=== PATIENT | female | born 1975 ===

== ENCOUNTER → 2020-02-06 14:40 | Outpatient (BNVA) | payer OTHER, SELFPAY | PROVIDERS: PCP Internal Medicine; Referring Provider Internal Medicine; Visit Provider Student in an Organized Health Care Education/Training Program | DX: M06.00 Rheumatoid arthritis without rheumatoid factor, unspecified site (principal); M54.9 Dorsalgia, unspecified; Z79.899 Other long term (current) drug therapy | CPT/HCPCS: 99212 ==

== ENCOUNTER 2020-06-11 13:44 | Outpatient (REF) | payer OTHER, SELFPAY ==
--- NOTE | ~2020-06-11 | XR_ITS ---
EXAMINATION: XR KNEE, LEFT CLINICAL INFORMATION: Rheumatoid arthritis without rheumatoid factor COMPARISON: Radiographs left knee 12/07/2017 TECHNIQUE: 3 views of the left knee are obtained including AP view with weightbearing. FINDINGS: There is no fracture, dislocation, destructive process, or suprapatellar effusion. Bony mineralization is normal. No periostitis. Hoffa's fat pad appears normal. There is no focal joint narrowing or erosive change or chondrocalcinosis. XR/XR knee LT 3V IMPRESSION: Unremarkable left knee.
--- NOTE | ~2020-06-11 | XR_ITS ---
EXAMINATION: XR HIP, LEFT CLINICAL INFORMATION: Rheumatoid arthritis without rheumatoid factor. COMPARISON: Radiographs left hip 07/14/2010 TECHNIQUE: Two views of the left hip. FINDINGS: There is normal bony mineralization. No joint narrowing or erosive change or chondrocalcinosis. Soft tissue planes appear normal. There is no fracture, dislocation, or destructive process. Visualized left SI joint and the pubis are unremarkable. Small bone island in the ischial tuberosity is stable from prior radiographs 2010. XR/XR hip LT min 2V IMPRESSION: Normal left hip.
[2020-06-11 14:40] LABS: MANUAL DIFF FLAG NO
[2020-06-11 14:46] LABS: Basophils Percent Auto 0.3 % (0-2); Eosinophils Absolute Auto 0.1 X10*3/uL (0.0-0.4); Eosinophils Percent Auto 1.5 % (0-4); Hematocrit 38.2 % (37-47); Hemoglobin 12.1 g/dl (12.0-16.0); Imm Gran Abs Auto 0.05 X10*3/uL (0.00-0.03); Imm Gran Pct Auto 0.8 % (0.0-0.4); Lymphocytes Absolute Auto 1.3 X10*3/uL (1.2-4.9); Lymphocytes Percent Auto 20.5 % (20-40); Mean Corpuscular HGB Conc 31.7 g/dl (31.0-35.0); Mean Corpuscular Hemoglobin 30.6 pg (27.0-33.0); Mean Corpuscular Volume 96.5 fL (80-98); Mean Platelet Volume 9.8 fL (9.4-12.3); Monocytes Absolute Auto 0.5 X10*3/uL (0.1-1.2); Monocytes Percent Auto 7.3 % (2-11); Neutrophils Absolute Auto 4.6 X10*3/uL (2.0-8.3); Neutrophils Percent Auto 69.6 % (45-73); Platelet Count 335 X10*3/uL (160-400); Red Blood Count 3.96 X10*6/uL (4.20-5.50); Red Cell Distribution Width 15.6 % (11.0-16.0); White Blood Count 6.5 X10*3/uL (4.8-10.8)
[2020-06-11 15:09] LABS: Alanine Aminotransferase 12 U/L (0-31); Albumin Level 4.3 g/dL (3.5-5.0); Alkaline Phosphatase 80 U/L (39-117); Anion Gap 14 (12-20); Aspartate Amino Transferase 17 U/L (5-31); Bilirubin Total 0.4 mg/dL (0.0-1.0); Blood Urea Nitrogen 10 mg/dL (9-16); C Reactive Protein 1.92 mg/dL (< or = 0.50); Calcium 9.8 mg/dL (8.4-10.2); Carbon Dioxide 28 mmol/L (22-29); Chloride 104 mmol/L (96-108); Estimated Glomerular Filt Rate > 60; Glucose Random 96 mg/dL (60-115); Potassium 4.8 mmol/L (3.3-5.1); Sodium 141 mmol/L (135-145); Total Protein 7.7 g/dL (6.5-8.0)
[2020-06-11 15:42] LABS: Erythrocyte Sedimentation Rate 29 MM/HR (0-20)
[2020-06-12 04:51] LABS: HBc Num1 0.04 S/CO (0.00-0.79); Hepatitis A Antibody IgM 0.13 Index (0-0.79); Hepatitis B Core Antibody Nonreactive (Nonreactive); ~HepC Num1 0.07 S/CO (0.00-0.79); ~Hepatitis A Antibody IgM Nonreactive (Nonreactive); ~Hepatitis B Surface Antibody REACTIVE (Nonreactive); ~Hepatitis C Antibody Nonreactive (Nonreactive)
[2020-06-12 05:02] LABS: HBsAGNum1 0.18 S/CO (0.00-0.99); Hepatitis B Surface Antigen Negative (Negative)
[2020-06-13 19:16] LABS: TS Negative Control Passed; TS Panel A 0; TS Panel B 0; TS Positive Control Passed; TSpotTB Negative (SeeBelow)
== END 2020-06-11 13:45 | disposition home or self-care (01) ==
LOC: HO.LAB 13:44
PROVIDERS: PCP Internal Medicine; Visit Provider Student in an Organized Health Care Education/Training Program
DX: M06.00 Rheumatoid arthritis without rheumatoid factor, unspecified site (principal); Z79.899 Other long term (current) drug therapy
CPT/HCPCS: 36415; 73502; 73562; 80053; 85025; 85652; 86140; 86481; 86704; 86706; 86709; 86803; 87340; 99212

== ENCOUNTER 2020-09-16 15:36 | Outpatient (REF) | payer OTHER, SELFPAY ==
[2020-09-16 16:29] LABS: MANUAL DIFF FLAG NO
[2020-09-16 16:34] LABS: Basophils Percent Auto 0.3 % (0-2); Eosinophils Absolute Auto 0.1 X10*3/uL (0.0-0.4); Eosinophils Percent Auto 0.9 % (0-4); Hematocrit 36.3 % (37-47); Hemoglobin 11.6 g/dl (12.0-16.0); Imm Gran Abs Auto 0.05 X10*3/uL (0.00-0.03); Imm Gran Pct Auto 0.8 % (0.0-0.4); Lymphocytes Absolute Auto 1.5 X10*3/uL (1.2-4.9); Mean Corpuscular Hemoglobin 30.1 pg (27.0-33.0); Mean Corpuscular Volume 94.3 fL (80-98); Monocytes Absolute Auto 0.4 X10*3/uL (0.1-1.2); Monocytes Percent Auto 5.8 % (2-11); Neutrophils Absolute Auto 4.6 X10*3/uL (2.0-8.3); Neutrophils Percent Auto 70.2 % (45-73); Platelet Count 261 X10*3/uL (160-400); Red Blood Count 3.85 X10*6/uL (4.20-5.50); Red Cell Distribution Width 14.7 % (11.0-16.0); White Blood Count 6.6 X10*3/uL (4.8-10.8)
[2020-09-16 16:56] LABS: Alanine Aminotransferase 8 U/L (0-31); Albumin Level 4.2 g/dL (3.5-5.0); Alkaline Phosphatase 71 U/L (39-117); Anion Gap 10 (12-20); Aspartate Amino Transferase 12 U/L (5-31); Bilirubin Total 0.2 mg/dL (0.0-1.0); Blood Urea Nitrogen 9 mg/dL (9-16); C Reactive Protein 0.65 mg/dL (< or = 0.50); Calcium 9.8 mg/dL (8.4-10.2); Carbon Dioxide 27 mmol/L (22-29); Chloride 107 mmol/L (96-108); Estimated Glomerular Filt Rate > 60; Glucose Random 123 mg/dL (60-115); Potassium 4.1 mmol/L (3.3-5.1); Sodium 140 mmol/L (135-145); Total Protein 7.2 g/dL (6.5-8.0)
[2020-09-16 17:33] LABS: Erythrocyte Sedimentation Rate 21 MM/HR (0-20)
== END 2020-09-16 15:37 | disposition home or self-care (01) ==
LOC: HO.LAB 15:36
PROVIDERS: Visit Provider Student in an Organized Health Care Education/Training Program
DX: M06.00 Rheumatoid arthritis without rheumatoid factor, unspecified site (principal)
CPT/HCPCS: 36415; 80053; 85025; 85652; 86140; 99212

== ENCOUNTER → 2020-10-06 11:28 | Outpatient (BNVA) | payer OTHER, SELFPAY | PROVIDERS: PCP Physician Assistant; Visit Provider Student in an Organized Health Care Education/Training Program ==

== ENCOUNTER → 2020-11-10 10:02 | Outpatient (BNVA) | payer OTHER, SELFPAY | PROVIDERS: PCP Internal Medicine; Visit Provider Nurse Practitioner Family | DX: M06.00 Rheumatoid arthritis without rheumatoid factor, unspecified site (principal); Z79.899 Other long term (current) drug therapy | CPT/HCPCS: 99212 ==

== ENCOUNTER 2020-12-22 12:14 | Outpatient (REF) | payer OTHER, SELFPAY ==
[2020-12-22 12:40] LABS: MANUAL DIFF FLAG NO
[2020-12-22 12:57] LABS: Basophils Percent Auto 0.6 % (0-2); Eosinophils Absolute Auto 0.1 X10*3/uL (0.0-0.4); Eosinophils Percent Auto 1.5 % (0-4); Hematocrit 37.8 % (37-47); Hemoglobin 11.9 g/dl (12.0-16.0); Imm Gran Abs Auto 0.02 X10*3/uL (0.00-0.03); Imm Gran Pct Auto 0.4 % (0.0-0.4); Lymphocytes Absolute Auto 1.6 X10*3/uL (1.2-4.9); Lymphocytes Percent Auto 30.4 % (20-40); Mean Corpuscular HGB Conc 31.5 g/dl (31.0-35.0); Mean Corpuscular Hemoglobin 29.6 pg (27.0-33.0); Monocytes Absolute Auto 0.3 X10*3/uL (0.1-1.2); Monocytes Percent Auto 6.3 % (2-11); Neutrophils Absolute Auto 3.2 X10*3/uL (2.0-8.3); Neutrophils Percent Auto 60.8 % (45-73); Platelet Count 300 X10*3/uL (160-400); Red Blood Count 4.02 X10*6/uL (4.20-5.50); Red Cell Distribution Width 15.1 % (11.0-16.0); White Blood Count 5.2 X10*3/uL (4.8-10.8)
[2020-12-22 13:23] LABS: Alanine Aminotransferase 10 U/L (0-31); Albumin Level 4.5 g/dL (3.5-5.0); Alkaline Phosphatase 68 U/L (39-117); Anion Gap 10 (12-20); Aspartate Amino Transferase 15 U/L (5-31); Bilirubin Total 0.3 mg/dL (0.0-1.0); Blood Urea Nitrogen 8 mg/dL (9-16); C Reactive Protein 0.74 mg/dL (< or = 0.50); Calcium 9.9 mg/dL (8.4-10.2); Carbon Dioxide 29 mmol/L (22-29); Chloride 106 mmol/L (96-108); Estimated Glomerular Filt Rate > 60; Glucose Random 95 mg/dL (60-115); Potassium 4.5 mmol/L (3.3-5.1); Sodium 140 mmol/L (135-145); Total Protein 7.7 g/dL (6.5-8.0)
[2020-12-22 13:40] LABS: Erythrocyte Sedimentation Rate 20 MM/HR (0-20)
== END 2020-12-22 12:15 | disposition home or self-care (01) ==
LOC: HO.LAB 12:14
PROVIDERS: PCP Physician Assistant; Visit Provider Nurse Practitioner Family
DX: M06.00 Rheumatoid arthritis without rheumatoid factor, unspecified site (principal)
CPT/HCPCS: 36415; 80053; 85025; 85652; 86140

== ENCOUNTER → 2021-02-08 08:49 | Outpatient (BNVA) | payer OTHER, SELFPAY | PROVIDERS: PCP Physician Assistant; Visit Provider Nurse Practitioner Family | DX: M06.00 Rheumatoid arthritis without rheumatoid factor, unspecified site (principal); M25.562 Pain in left knee | CPT/HCPCS: 99212 ==

== ENCOUNTER 2021-04-20 10:46 | Outpatient (REF) | payer OTHER, SELFPAY ==
[2021-04-20 12:00] LABS: MANUAL DIFF FLAG NO
[2021-04-20 12:10] LABS: Basophils Percent Auto 0.3 % (0-2); Eosinophils Absolute Auto 0.1 X10*3/uL (0.0-0.4); Eosinophils Percent Auto 2.2 % (0-4); Hematocrit 39.5 % (37.0-47.0); Hemoglobin 12.6 g/dl (12.0-16.0); Imm Gran Abs Auto 0.03 X10*3/uL (0.00-0.03); Imm Gran Pct Auto 0.5 % (0.0-0.4); Lymphocytes Absolute Auto 1.6 X10*3/uL (1.2-4.9); Mean Corpuscular HGB Conc 31.9 g/dl (31.0-35.0); Mean Platelet Volume 10.3 fL (9.4-12.3); Monocytes Absolute Auto 0.4 X10*3/uL (0.1-1.2); Monocytes Percent Auto 6.9 % (2-11); Neutrophils Percent Auto 64.1 % (45-73); Platelet Count 273 X10*3/uL (160-400); Red Cell Distribution Width 15.7 % (11.0-16.0); White Blood Count 6.3 X10*3/uL (4.8-10.8)
[2021-04-20 12:47] LABS: Erythrocyte Sedimentation Rate 18 MM/HR (0-20)
[2021-04-20 13:22] LABS: Alanine Aminotransferase 10 U/L (0-31); Albumin Level 4.1 g/dL (3.5-5.0); Alkaline Phosphatase 68 U/L (39-117); Anion Gap 10 (12-20); Aspartate Amino Transferase 14 U/L (5-31); Bilirubin Total 0.2 mg/dL (0.0-1.0); Blood Urea Nitrogen 10 mg/dL (9-16); C Reactive Protein 0.93 mg/dL (< or = 0.50); Calcium 10.1 mg/dL (8.4-10.2); Carbon Dioxide 28 mmol/L (22-29); Chloride 108 mmol/L (96-108); Estimated Glomerular Filt Rate > 60; Glucose Random 109 mg/dL (60-115); Potassium 3.9 mmol/L (3.3-5.1); Sodium 142 mmol/L (135-145); Total Protein 7.3 g/dL (6.5-8.0)
== END 2021-04-20 10:47 | disposition home or self-care (01) ==
LOC: HO.LAB 10:46
PROVIDERS: Student in an Organized Health Care Education/Training Program; PCP Physician Assistant; Visit Provider Nurse Practitioner Family
DX: M06.00 Rheumatoid arthritis without rheumatoid factor, unspecified site (principal); M25.562 Pain in left knee
CPT/HCPCS: 36415; 80053; 85025; 85652; 86140; 99212

== ENCOUNTER 2021-06-18 11:36 | Outpatient (REF) | payer OTHER, SELFPAY ==
[2021-06-18 12:35] LABS: MANUAL DIFF FLAG NO
[2021-06-18 13:02] LABS: Basophils Percent Auto 0.3 % (0-2); Eosinophils Percent Auto 0.3 % (0-4); Hematocrit 40.4 % (37.0-47.0); Hemoglobin 12.9 g/dl (12.0-16.0); Imm Gran Abs Auto 0.02 X10*3/uL (0.00-0.03); Imm Gran Pct Auto 0.3 % (0.0-0.4); Lymphocytes Absolute Auto 1.6 X10*3/uL (1.2-4.9); Lymphocytes Percent Auto 23.6 % (20-40); Mean Corpuscular HGB Conc 31.9 g/dl (31.0-35.0); Mean Corpuscular Hemoglobin 30.1 pg (27.0-33.0); Mean Corpuscular Volume 94.4 fL (80.0-98.0); Mean Platelet Volume 10.3 fL (9.4-12.3); Monocytes Absolute Auto 0.5 X10*3/uL (0.1-1.2); Monocytes Percent Auto 7.5 % (2-11); Neutrophils Absolute Auto 4.7 x10*3/uL (2.0-8.3); Platelet Count 263 X10*3/uL (160-400); Red Blood Count 4.28 X10*6/uL (4.20-5.50); Red Cell Distribution Width 14.3 % (11.0-16.0)
[2021-06-18 13:44] LABS: Alanine Aminotransferase 10 U/L (0-31); Albumin Level 4.2 g/dL (3.5-5.0); Alkaline Phosphatase 67 U/L (39-117); Anion Gap 11 (12-20); Aspartate Amino Transferase 13 U/L (5-31); Bilirubin Total 0.4 mg/dL (0.0-1.0); Blood Urea Nitrogen 10 mg/dL (9-16); Calcium 10.5 mg/dL (8.4-10.2); Carbon Dioxide 27 mmol/L (22-29); Chloride 105 mmol/L (96-108); Estimated Glomerular Filt Rate > 60; Glucose Random 96 mg/dL (60-115); Potassium 4.2 mmol/L (3.3-5.1); Sodium 139 mmol/L (135-145); Total Protein 7.5 g/dL (6.5-8.0)
[2021-06-18 13:48] LABS: Erythrocyte Sedimentation Rate 20 MM/HR (0-20)
[2021-06-21 12:41] LABS: PTHI 43 pg/mL (16-77)
== END 2021-06-18 11:37 | disposition home or self-care (01) ==
LOC: HO.LAB 11:36
PROVIDERS: PCP Physician Assistant; Visit Provider Nurse Practitioner Family
DX: M06.00 Rheumatoid arthritis without rheumatoid factor, unspecified site (principal); G89.29 Other chronic pain; M25.562 Pain in left knee
CPT/HCPCS: 36415; 80053; 83970; 85025; 85652; 86140; 99212

== ENCOUNTER 2021-07-01 12:34 | Outpatient (REF) | payer OTHER, SELFPAY ==
[2021-07-01 13:02] LABS: MANUAL DIFF FLAG NO
[2021-07-01 13:24] LABS: Basophils Percent Auto 0.3 % (0-2); Eosinophils Absolute Auto 0.1 X10*3/uL (0.0-0.4); Eosinophils Percent Auto 1.4 % (0-4); Hematocrit 38.9 % (37.0-47.0); Hemoglobin 12.6 g/dl (12.0-16.0); Imm Gran Abs Auto 0.02 X10*3/uL (0.00-0.03); Imm Gran Pct Auto 0.3 % (0.0-0.4); Lymphocytes Absolute Auto 1.7 X10*3/uL (1.2-4.9); Lymphocytes Percent Auto 25.9 % (20-40); Mean Corpuscular HGB Conc 32.4 g/dl (31.0-35.0); Mean Corpuscular Hemoglobin 29.8 pg (27.0-33.0); Mean Platelet Volume 10.1 fL (9.4-12.3); Monocytes Absolute Auto 0.4 X10*3/uL (0.1-1.2); Neutrophils Absolute Auto 4.3 x10*3/uL (2.0-8.3); Neutrophils Percent Auto 66.1 % (45-73); Platelet Count 282 X10*3/uL (160-400); Red Blood Count 4.23 X10*6/uL (4.20-5.50); Red Cell Distribution Width 13.6 % (11.0-16.0); White Blood Count 6.5 X10*3/uL (4.8-10.8)
[2021-07-01 13:48] LABS: Alanine Aminotransferase 9 U/L (0-31); Albumin Level 3.9 g/dL (3.5-5.0); Alkaline Phosphatase 70 U/L (39-117); Anion Gap 11 (12-20); Aspartate Amino Transferase 14 U/L (5-31); Bilirubin Total 0.2 mg/dL (0.0-1.0); Blood Urea Nitrogen 10 mg/dL (9-16); C Reactive Protein 1.07 mg/dL (< or = 0.50); Calcium 9.8 mg/dL (8.4-10.2); Carbon Dioxide 23 mmol/L (22-29); Chloride 108 mmol/L (96-108); Estimated Glomerular Filt Rate > 60; Glucose Random 85 mg/dL (60-115); Potassium 4.4 mmol/L (3.3-5.1); Sodium 138 mmol/L (135-145); Total Protein 7.3 g/dL (6.5-8.0)
[2021-07-01 14:01] LABS: Erythrocyte Sedimentation Rate 28 MM/HR (0-20)
[2021-07-02 14:37] LABS: Calcium (PTHI) 9.8 mg/dL (8.6-10.2); PTHI 48 pg/mL (16-77)
== END 2021-07-01 12:35 | disposition home or self-care (01) ==
LOC: HO.LAB 12:34
PROVIDERS: Visit Provider Nurse Practitioner Family
DX: M06.00 Rheumatoid arthritis without rheumatoid factor, unspecified site (principal); E83.52 Hypercalcemia; Z79.899 Other long term (current) drug therapy
CPT/HCPCS: 36415; 80053; 83970; 85025; 85652; 86140

== ENCOUNTER 2021-08-31 14:03 | Outpatient (REF) | payer OTHER, SELFPAY ==
[2021-08-31 14:19] LABS: MANUAL DIFF FLAG NO
[2021-08-31 14:57] LABS: Basophils Percent Auto 0.3 % (0-2); Eosinophils Percent Auto 0.6 % (0-4); Hematocrit 42.2 % (37.0-47.0); Hemoglobin 13.3 g/dl (12.0-16.0); Imm Gran Abs Auto 0.02 X10*3/uL (0.00-0.03); Imm Gran Pct Auto 0.3 % (0.0-0.4); Lymphocytes Absolute Auto 1.5 X10*3/uL (1.2-4.9); Lymphocytes Percent Auto 20.4 % (20-40); Mean Corpuscular HGB Conc 31.5 g/dl (31.0-35.0); Mean Corpuscular Hemoglobin 29.8 pg (27.0-33.0); Mean Corpuscular Volume 94.6 fL (80.0-98.0); Mean Platelet Volume 10.2 fL (9.4-12.3); Monocytes Absolute Auto 0.4 X10*3/uL (0.1-1.2); Monocytes Percent Auto 5.9 % (2-11); Neutrophils Absolute Auto 5.3 x10*3/uL (2.0-8.3); Neutrophils Percent Auto 72.5 % (45-73); Platelet Count 286 X10*3/uL (160-400); Red Blood Count 4.46 X10*6/uL (4.20-5.50); Red Cell Distribution Width 14.8 % (11.0-16.0); White Blood Count 7.3 X10*3/uL (4.8-10.8)
[2021-08-31 15:22] LABS: Alanine Aminotransferase 13 U/L (0-31); Albumin Level 4.4 g/dL (3.5-5.0); Alkaline Phosphatase 81 U/L (39-117); Anion Gap 11 (12-20); Aspartate Amino Transferase 15 U/L (5-31); Bilirubin Total 0.3 mg/dL (0.0-1.0); Blood Urea Nitrogen 10 mg/dL (9-16); C Reactive Protein 1.08 mg/dL (< or = 0.50); Carbon Dioxide 28 mmol/L (22-29); Chloride 103 mmol/L (96-108); Estimated Glomerular Filt Rate > 60; Glucose Random 88 mg/dL (60-115); Sodium 138 mmol/L (135-145); Total Protein 7.8 g/dL (6.5-8.0)
[2021-08-31 15:47] LABS: Erythrocyte Sedimentation Rate 20 MM/HR (0-20)
== END 2021-08-31 14:04 | disposition home or self-care (01) ==
LOC: HO.LAB 14:03
PROVIDERS: PCP Physician Assistant; Visit Provider Nurse Practitioner Family
DX: M06.00 Rheumatoid arthritis without rheumatoid factor, unspecified site (principal)
CPT/HCPCS: 36415; 80053; 85025; 85652; 86140

== ENCOUNTER 2021-09-22 12:34 | Outpatient (REF) | payer OTHER, SELFPAY ==
--- NOTE | ~2021-09-22 | XR_ITS ---
EXAMINATION: XR KNEE, LEFT CLINICAL INFORMATION: Pain left knee. COMPARISON: None TECHNIQUE: Four views of the left knee. FINDINGS: There is minimal loss of medial compartment joint space. No loose bodies, acute fracture, joint effusion or bony erosive changes. XR/XR knee LT 3V IMPRESSION: Minimal loss of medial compartment joint space, question early degenerative changes. No acute fracture, loose bodies or joint effusion seen.
== END 2021-09-22 12:35 | disposition home or self-care (01) ==
LOC: HO.XRAY 12:34
PROVIDERS: Visit Provider Nurse Practitioner Family
DX: M25.562 Pain in left knee (principal); M06.00 Rheumatoid arthritis without rheumatoid factor, unspecified site; Z79.899 Other long term (current) drug therapy
CPT/HCPCS: 73562; 99212

== ENCOUNTER 2021-12-23 13:31 | Outpatient (REF) | payer OTHER, SELFPAY ==
[2021-12-23 13:53] LABS: MANUAL DIFF FLAG NO
[2021-12-23 14:37] LABS: Basophils Percent Auto 0.3 % (0-2); Eosinophils Percent Auto 0.7 % (0-4); Hematocrit 40.6 % (37.0-47.0); Hemoglobin 13.2 g/dl (12.0-16.0); Imm Gran Abs Auto 0.03 X10*3/uL (0.00-0.03); Imm Gran Pct Auto 0.5 % (0.0-0.4); Lymphocytes Absolute Auto 1.5 X10*3/uL (1.2-4.9); Lymphocytes Percent Auto 24.5 % (20-40); Mean Corpuscular HGB Conc 32.5 g/dl (31.0-35.0); Mean Corpuscular Hemoglobin 30.6 pg (27.0-33.0); Mean Corpuscular Volume 94.2 fL (80.0-98.0); Mean Platelet Volume 11.8 fL (9.4-12.3); Monocytes Absolute Auto 0.4 X10*3/uL (0.1-1.2); Monocytes Percent Auto 7.1 % (2-11); Neutrophils Percent Auto 66.9 % (45-73); Platelet Count 178 X10*3/uL (160-400); Red Blood Count 4.31 X10*6/uL (4.20-5.50); Red Cell Distribution Width 14.6 % (11.0-16.0)
[2021-12-23 15:01] LABS: Alanine Aminotransferase 9 U/L (0-31); Aspartate Amino Transferase 15 U/L (5-31); C Reactive Protein 1.41 mg/dL (< or = 0.50); Estimated Glomerular Filt Rate > 60
[2021-12-23 15:21] LABS: Erythrocyte Sedimentation Rate 27 MM/HR (0-20)
== END 2021-12-23 13:32 | disposition home or self-care (01) ==
LOC: HO.LAB 13:31
PROVIDERS: PCP Physician Assistant; Visit Provider Nurse Practitioner Family
DX: M06.00 Rheumatoid arthritis without rheumatoid factor, unspecified site (principal); Z79.899 Other long term (current) drug therapy
CPT/HCPCS: 36415; 82565; 84450; 84460; 85025; 85652; 86140

== ENCOUNTER 2022-01-04 14:18 | Outpatient (REF) | payer OTHER, SELFPAY ==
--- NOTE | ~2022-01-04 | XR_ITS ---
EXAMINATION: XR CERVICAL SPINE CLINICAL INFORMATION: Pain. COMPARISON: Previous x-ray 10/2019. TECHNIQUE: 3 views of the cervical spine were obtained. FINDINGS: Bone alignment is normal. No acute fracture or dislocation. Degenerative spondylosis at C6-C7. Normal disc spaces. Normal prevertebral soft tissues. XR/XR cervical spine 2V IMPRESSION: Degenerative spondylosis at C6-C7.
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
== END 2022-01-04 14:19 | disposition home or self-care (01) ==
LOC: HO.XRAY 14:18
PROVIDERS: PCP Physician Assistant; Visit Provider Nurse Practitioner Family
DX: M54.2 Cervicalgia (principal); M54.50 Low back pain, unspecified; M54.6 Pain in thoracic spine; M06.00 Rheumatoid arthritis without rheumatoid factor, unspecified site; M79.7 Fibromyalgia; M25.562 Pain in left knee
CPT/HCPCS: 72040; 72072; 72100; 99212

== ENCOUNTER → 2022-02-03 14:58 | Outpatient (BNVA) | payer OTHER, SELFPAY | PROVIDERS: PCP Physician Assistant; Visit Provider Psychiatry & Neurology Neurology | DX: M79.7 Fibromyalgia (principal); M06.00 Rheumatoid arthritis without rheumatoid factor, unspecified site; R29.898 Other symptoms and signs involving the musculoskeletal system; R06.83 Snoring; G47.9 Sleep disorder, unspecified; G47.10 Hypersomnia, unspecified | CPT/HCPCS: 99202 ==

== ENCOUNTER 2022-05-16 15:12 | Outpatient (REF) | payer OTHER, SELFPAY ==
[2022-05-16 15:26] LABS: MANUAL DIFF FLAG NO
[2022-05-16 16:03] LABS: Basophils Percent Auto 0.5 % (0-2); Eosinophils Absolute Auto 0.2 X10*3/uL (0.0-0.4); Eosinophils Percent Auto 2.3 % (0-4); Hematocrit 41.3 % (37.0-47.0); Hemoglobin 13.3 g/dl (12.0-16.0); Imm Gran Abs Auto 0.03 X10*3/uL (0.00-0.03); Imm Gran Pct Auto 0.5 % (0.0-0.4); Lymphocytes Absolute Auto 1.9 X10*3/uL (1.2-4.9); Lymphocytes Percent Auto 29.3 % (20-40); Mean Corpuscular HGB Conc 32.2 g/dl (31.0-35.0); Mean Corpuscular Hemoglobin 30.1 pg (27.0-33.0); Mean Corpuscular Volume 93.4 fL (80.0-98.0); Monocytes Absolute Auto 0.4 X10*3/uL (0.1-1.2); Monocytes Percent Auto 5.7 % (2-11); Neutrophils Absolute Auto 4.1 x10*3/uL (2.0-8.3); Neutrophils Percent Auto 61.7 % (45-73); Platelet Count 285 X10*3/uL (160-400); Red Blood Count 4.42 X10*6/uL (4.20-5.50); Red Cell Distribution Width 14.2 % (11.0-16.0); White Blood Count 6.6 X10*3/uL (4.8-10.8)
[2022-05-16 16:29] LABS: Alanine Aminotransferase 12 U/L (0-31); Albumin Level 4.4 g/dL (3.5-5.0); Alkaline Phosphatase 76 U/L (39-117); Anion Gap 10 (12-20); Aspartate Amino Transferase 16 U/L (5-31); Bilirubin Total 0.4 mg/dL (0.0-1.0); Blood Urea Nitrogen 8 mg/dL (9-16); C Reactive Protein 1.51 mg/dL (< or = 0.50); Carbon Dioxide 28 mmol/L (22-29); Chloride 106 mmol/L (96-108); Estimated Glomerular Filt Rate > 60; Glucose Random 83 mg/dL (60-115); Potassium 4.6 mmol/L (3.3-5.1); Sodium 139 mmol/L (135-145); Total Protein 7.9 g/dL (6.5-8.0)
[2022-05-16 16:50] LABS: Erythrocyte Sedimentation Rate 51 MM/HR (0-20)
== END 2022-05-16 15:13 | disposition home or self-care (01) ==
LOC: HO.LAB 15:12
PROVIDERS: PCP Physician Assistant; Visit Provider Nurse Practitioner Family
DX: M06.00 Rheumatoid arthritis without rheumatoid factor, unspecified site (principal)
CPT/HCPCS: 36415; 80053; 85025; 85652; 86140

== ENCOUNTER → 2022-05-18 14:41 | Outpatient (BNVA) | payer OTHER, SELFPAY | PROVIDERS: PCP Physician Assistant; Visit Provider Nurse Practitioner Family | DX: M06.00 Rheumatoid arthritis without rheumatoid factor, unspecified site (principal); M25.562 Pain in left knee; M47.816 Spondylosis without myelopathy or radiculopathy, lumbar region; M47.812 Spondylosis without myelopathy or radiculopathy, cervical region; M47.814 Spondylosis without myelopathy or radiculopathy, thoracic region | CPT/HCPCS: 99212 ==

== ENCOUNTER 2022-06-21 13:22 | Outpatient (REF) | payer MEDICAID, SELFPAY ==
[2022-06-21 14:28] LABS: C Reactive Protein 0.52 mg/dL (< or = 0.50)
[2022-06-21 14:59] LABS: Erythrocyte Sedimentation Rate 23 MM/HR (0-20)
== END 2022-06-21 13:23 | disposition home or self-care (01) ==
LOC: HO.LAB 13:22
PROVIDERS: Visit Provider Nurse Practitioner Family
DX: M06.00 Rheumatoid arthritis without rheumatoid factor, unspecified site (principal)
CPT/HCPCS: 36415; 85652; 86140

== ENCOUNTER → 2022-08-17 13:18 | Outpatient (BNVA) | payer MEDICAID, SELFPAY | PROVIDERS: PCP Physician Assistant; Visit Provider Nurse Practitioner Family | DX: M06.00 Rheumatoid arthritis without rheumatoid factor, unspecified site (principal); M25.562 Pain in left knee; Z79.899 Other long term (current) drug therapy | CPT/HCPCS: 99212 ==

== ENCOUNTER 2022-11-07 13:04 | Outpatient (AMB) | payer MEDICAID, SELFPAY ==
[2022-11-07 13:05] VITALS: BP 116/72; PULSE 72; TEMP 35.9; O2SAT 96; BMI 29.0
--- NOTE | 2022-11-07 13:05 | MHC.OFFVIS ---
Intake Vital Signs 11/07/22 13:05 Height 5 ft 2 in Weight 158 lb 11.725 oz BMI 29.0 BP 116/72 Blood Pressure Location Lt brachial Position Sitting Pulse 72 Pulse Source Pulse Oximeter Temp 96.6 F L Temp Source Skin Pulse Oximetry (%) 96 Intake Visit Reasons: rheumatoid arthritis Intake Note: Pt seen today for RA follow up. 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: No Accompanied by: Self / Same As Patient Allergies tramadol [Ultram] Allergy (Unknown, Verified 11/07/22 13:07) nausea and vomiting adalimumab [From Humira(CF)] Allergy (Verified 11/07/22 13:07) injection site reaction etanercept [From Enbrel] Allergy (Verified 11/07/22 13:07) Rash CT scan dye Allergy (Intermediate, Uncoded 11/07/22 13:07) trouble breathing From ULTRAM Allergy (Intermediate, Uncoded 11/07/22 13:07) N/V/DIZZINESS Medication List - Last Reconciled 11/07/22 by Clayton Aj MD abatacept (Orencia ClickJect) 125 mg subcut QWEEK albuterol sulfate 90 mcg/actuation 2 puffs inhalation Q6H PRN ascorbate calcium (vitamin C) 500 mg PO DAILY baclofen 10 mg PO BID gydgohhgqm-eqbtakibpzbql-yuvc 50-325-40 mg 1 tab PO Q8H PRN citalopram 20 mg PO DAILY cyanocobalamin (vitamin B-12) 250 mcg PO DAILY dicyclomine 10 mg PO QID fluticasone propionate 50 mcg/actuation 1 spray intranasal BID fluticasone propionate 44 mcg/actuation (Flovent HFA) 1 puff inhalation BID L.acidoph-B.animalis-B.longum 15 billion cell 1 cap PO DAILY loratadine 10 mg PO DAILY PRN lorazepam 1 mg PO BID PRN pantoprazole 40 mg PO DAILY peg [id number] 1-0.2-0.2 % (Artificial Tears ([id number])) 1 drp ophthalmic (eye) BID-QID PRN pravastatin 20 mg PO DAILY propranolol ER 120 mg PO DAILY sennosides (Natural Senna Laxative) 8.6 mg PO DAILY simethicone (Gas Relief (simethicone)) 250 mg PO BID PRN valacyclovir 1,000 mg PO BID PRN HPI HPI Comments History of Present Illness Details The patient returns for evaluation of her seronegative rheumatoid arthritis. She was last here in July seeing Serena. She had developed a rash while she was taking Orencia. This looked like psoriasis so we felt she the Orencia could be continued. However she apparently never obtained the prescription. She cannot really explain what happened. She did not call the pharmacy. She never called us. She notes that her symptoms were not particularly bothersome up until last month when she has had more pain mostly in the neck, shoulders, lower back, and left ankle. In the past she had been on methotrexate but that caused elevated LFTs. Humira and Enbrel seemed to cause injection site reactions. She says the Orencia, up until the time it was discontinued, seemed to improve her symptoms. [facility] Medical History (Updated 11/07/22 @ 18:06 by Clayton Aj MD) Cervical spondylosis Degenerative joint disease (DJD) of lumbar spine Fibromyalgia Hand numbness HTN (hypertension) IBS (irritable bowel syndrome) Seronegative rheumatoid arthritis Thoracic spondylosis Surgical History H/O wisdom tooth extraction History of History of carpal tunnel release Hx of appendectomy Hx of tubal ligation Family History Father HTN (hypertension) Prostate cancer Mother Meningitis Diabetes HTN (hypertension) Hyperlipidemia Son Asthma Social History Household Members: None Housing: Apartment Alcohol intake: never Patient Tobacco Use Status: Never used Tobacco Review of Systems Const Details: Low energy at times. Negative for appetite change, weight change, fever, chills, malaise Eyes Details: Negative for vision change, dry eyes,headaches and dizziness ENT Details: Negative for hearing change, tinnitus, oral ulcer, nose bleeds and oral dryness. Card Details: Negative chest pain, edema and syncope Resp Details: Negative for SOB, cough and wheezing GI Details: Negative indigestion/heartburn, nausea, abdominal pain, bowel changes, diarrhea, constipation and bloody stool. Skin/Breast Details: Negative for itching, rash, hives, Raynaud's symptoms, sun sensitivity, and skin cancer Psych Details: Negative for anxiety, depression and stress Josh/Lymph Details: Negative for excessive bruising or bleeding. Physical Exam Vital Signs: Last Vital Signs Temp 96.6 F L 11/07/22 13:05 Pulse 72 11/07/22 13:05 BP 116/72 11/07/22 13:05 Pulse Ox 96 11/07/22 13:05 BMI result Body Mass Index 29.0 APPEARANCE: Patient in no acute distress EYES no redness, pupils equal and reactive to light, eyelids normal EXTREMITIES: No edema, no calf tenderness, normal peripheral pulses. SKIN: No inflammatory or neoplastic lesions. Normal color and turgor JOINT EXAM: Cervical Spine:? Mild to moderate pain with lateral flexion at 10 degrees of rotation beyond 20 degrees. There is no spinal tenderness but there is tenderness along the posterior cervical muscles. Thoracic Spine:? Widespread diffuse tenderness to palpation throughout. Lumbar Spine:? Alignment normal.? Pain with flexion at 45 degrees and attempts at extension.? Tenderness along the lumbar spinal muscles.? Hands: LEFT: Normal pain-free range of motion without tenderness, swelling, increased warmth or erythema. Able to make a full fist and has a good director of occupational therapy strength.? RIGHT:? Normal pain-free range of motion without tenderness, swelling, increased warmth or erythema.? Able to make a full fist and has good director of occupational therapy strength.? ?? Wrists:? Normal pain-free range of motion without tenderness, swelling, increased warmth or erythema. Elbows: Normal pain-free range of motion without tenderness, swelling, increased warmth or erythema. Shoulders:? Full range of motion with mild tenderness over the trapezius with extremes of motion. There is no abductor weakness, adenopathy, swelling, increased warmth or erythema.? Tenderness to palpation of bilateral upper biceps and forearms,? widespread diffuse tenderness to palpation in these areas, no erythema, swelling increased warmth. Hips:? Full range of motion with some lumbar pain at the extremes of normal range of motion. Hip bursa:? Bilateral mild trochanteric tenderness. Knees: LEFT:? Normal range of motion. ? No tenderness, swelling, increased warmth or erythema.? There is no effusion or crepitation.? Widespread diffuse tenderness to palpation along the paul. ? RIGHT:? Normal pain-free range of motion without tenderness, swelling, increased warmth or erythema.? There is no effusion or crepitation. Widespread diffuse tenderness to palpation along the paul. Ankles: Normal pain-free range of motion without tenderness, swelling, increased warmth or erythema. Feet: LEFT: Normal pain-free range of motion without tenderness, swelling, increased warmth or erythema. ? RIGHT:? Normal range of motion without tenderness, swelling increased warmth or erythema. Tender points:? Tenderness to digital palpation at the occiput, trapezius, second rib, lateral epicondyle.? No tenderness to knees, greater trochanter and gluteal area bilaterally. ? 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 skin reaction Orencia-April 2021-present Code(s): M06.00 - Rheumatoid arthritis without rheumatoid factor, unspecified site Plan Today she has quite a bit of spinal pain. She does have some underlying lumbar osteoarthritis. The response to Orencia was apparent when she stopped it so I think it should be restarted for presumed seronegative rheumatoid arthritis. However she has quite a few other pains without joint swelling consistent with some fibromyalgia. We will see if we can get approval of the Orencia now at this point to see if it improves her as much as she had before. It remains unclear why she was not able to get the medication. I will send the prescription in to [facility]. This was her pharmacy to be used according to her. We will check her back in 3 months to see if there is a response. 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 of unspecified immunomodulators and immunosuppressants Complete Blood Count Auto Diff Today M06.00 - Rheumatoid arthritis without rheumatoid factor, unspecified site, Z79.60 - correction (current) use of unspecified immunomodulators and immunosuppressants Erythrocyte Sedimentation Rate Today M06.00 - Rheumatoid arthritis without rheumatoid factor, unspecified site, Z79.60 - correction (current) use of unspecified immunomodulators and immunosuppressants T Spot TB Today M06.00 - Rheumatoid arthritis without rheumatoid factor, unspecified site, Z79.60 - correction (current) use of unspecified immunomodulators and immunosuppressants Medications: New abatacept (Orencia ClickJect) 125 mg subcut QWEEK 4 mL 3RF M06.00 - Rheumatoid arthritis without rheumatoid factor, unspecified site Coding Level of Care Code Est Pt Level 3 (59682) Diagnoses Degenerative joint disease (DJD) of lumbar spine M47.816 Long-term use of immunosuppressant medication Z79.60 Fibromyalgia M79.7 Seronegative rheumatoid arthritis M06.00
== END 2022-11-07 14:09 | disposition home or self-care (01) ==
PROVIDERS: PCP Physician Assistant; Visit Provider Internal Medicine Rheumatology
DX: M47.816 Spondylosis without myelopathy or radiculopathy, lumbar region (principal); Z79.60 Long term (current) use of unspecified immunomodulators and immunosuppressants; M79.7 Fibromyalgia; M06.00 Rheumatoid arthritis without rheumatoid factor, unspecified site
CPT/HCPCS: 99213

== ENCOUNTER → 2022-11-07 13:04 | Outpatient (BNVA) | payer MEDICAID, SELFPAY | PROVIDERS: PCP Physician Assistant; Visit Provider Internal Medicine Rheumatology | DX: M06.00 Rheumatoid arthritis without rheumatoid factor, unspecified site (principal); M79.7 Fibromyalgia; M47.812 Spondylosis without myelopathy or radiculopathy, cervical region; M47.816 Spondylosis without myelopathy or radiculopathy, lumbar region; Z79.60 Long term (current) use of unspecified immunomodulators and immunosuppressants | CPT/HCPCS: 99212 ==

== ENCOUNTER 2022-11-10 14:02 | Outpatient (REF) | payer MEDICAID, SELFPAY ==
[2022-11-10 14:31] LABS: MANUAL DIFF FLAG NO
[2022-11-10 14:50] LABS: Basophils Percent Auto 0.3 % (0-2); Eosinophils Absolute Auto 0.2 X10*3/uL (0.0-0.4); Eosinophils Percent Auto 3.1 % (0-4); Hematocrit 39.6 % (37.0-47.0); Hemoglobin 12.9 g/dl (12.0-16.0); Imm Gran Abs Auto 0.03 X10*3/uL (0.00-0.03); Imm Gran Pct Auto 0.5 % (0.0-0.4); Lymphocytes Absolute Auto 1.5 X10*3/uL (1.2-4.9); Lymphocytes Percent Auto 25.7 % (20-40); Mean Corpuscular HGB Conc 32.6 g/dl (31.0-35.0); Mean Corpuscular Hemoglobin 31.2 pg (27.0-33.0); Mean Corpuscular Volume 95.7 fL (80.0-98.0); Mean Platelet Volume 10.3 fL (9.4-12.3); Monocytes Absolute Auto 0.4 X10*3/uL (0.1-1.2); Monocytes Percent Auto 6.5 % (2-11); Neutrophils Absolute Auto 3.8 x10*3/uL (2.0-8.3); Neutrophils Percent Auto 63.9 % (45-73); Platelet Count 212 X10*3/uL (160-400); Red Blood Count 4.14 X10*6/uL (4.20-5.50); Red Cell Distribution Width 14.1 % (11.0-16.0); White Blood Count 5.9 X10*3/uL (4.8-10.8)
[2022-11-10 16:03] LABS: Alanine Aminotransferase 12 U/L (0-31); Albumin Level 4.1 g/dL (3.5-5.0); Alkaline Phosphatase 58 U/L (39-117); Anion Gap 9 (12-20); Aspartate Amino Transferase 14 U/L (5-31); Bilirubin Total 0.4 mg/dL (0.0-1.0); Blood Urea Nitrogen 8 mg/dL (9-16); C Reactive Protein 0.89 mg/dL (< or = 0.50); Calcium 9.8 mg/dL (8.4-10.2); Carbon Dioxide 25 mmol/L (22-29); Chloride 108 mmol/L (96-108); Estimated Glomerular Filt Rate > 60; Glucose Random 93 mg/dL (60-115); Potassium 3.6 mmol/L (3.3-5.1); Sodium 138 mmol/L (135-145); Total Protein 7.6 g/dL (6.5-8.0)
[2022-11-10 16:08] LABS: Rheumatoid Factor < 13.0 IU/mL (<15.0)
[2022-11-10 16:20] LABS: Erythrocyte Sedimentation Rate 23 MM/HR (0-20)
[2022-11-11 16:48] LABS: Cyclic Citrullinated Peptide <16 UNITS
[2022-11-13 00:41] LABS: TS Negative Control Passed; TS Panel A 0; TS Panel B 0; TS Positive Control Passed; TSpotTB Negative (Negative)
== END 2022-11-10 14:03 | disposition home or self-care (01) ==
LOC: HO.LAB 14:02
PROVIDERS: Visit Provider Internal Medicine Rheumatology
DX: Z11.1 Encounter for screening for respiratory tuberculosis (principal); M06.00 Rheumatoid arthritis without rheumatoid factor, unspecified site; Z79.60 Long term (current) use of unspecified immunomodulators and immunosuppressants
CPT/HCPCS: 36415; 80053; 85025; 85652; 86140; 86200; 86431; 86481

== ENCOUNTER 2023-01-30 12:55 | Outpatient (REF) | payer MEDICAID, SELFPAY ==
[2023-01-30 14:30] LABS: MANUAL DIFF FLAG NO
[2023-01-30 14:48] LABS: Basophils Percent Auto 0.3 % (0-2); Eosinophils Absolute Auto 0.1 X10*3/uL (0.0-0.4); Hematocrit 40.7 % (37.0-47.0); Hemoglobin 13.1 g/dl (12.0-16.0); Imm Gran Abs Auto 0.02 X10*3/uL (0.00-0.03); Imm Gran Pct Auto 0.3 % (0.0-0.4); Lymphocytes Absolute Auto 1.5 X10*3/uL (1.2-4.9); Lymphocytes Percent Auto 24.2 % (20-40); Mean Corpuscular HGB Conc 32.2 g/dl (31.0-35.0); Mean Corpuscular Volume 96.2 fL (80.0-98.0); Mean Platelet Volume 10.3 fL (9.4-12.3); Monocytes Absolute Auto 0.3 X10*3/uL (0.1-1.2); Monocytes Percent Auto 5.2 % (2-11); Neutrophils Absolute Auto 4.3 x10*3/uL (2.0-8.3); Platelet Count 299 X10*3/uL (160-400); Red Blood Count 4.23 X10*6/uL (4.20-5.50); Red Cell Distribution Width 13.7 % (11.0-16.0); White Blood Count 6.2 X10*3/uL (4.8-10.8)
[2023-01-30 15:26] LABS: Alanine Aminotransferase 9 U/L (0-31); Albumin Level 4.3 g/dL (3.5-5.0); Alkaline Phosphatase 62 U/L (39-117); Anion Gap 11 (12-20); Aspartate Amino Transferase 18 U/L (5-31); Bilirubin Total 0.2 mg/dL (0.0-1.0); Blood Urea Nitrogen 7 mg/dL (9-16); C Reactive Protein 0.52 mg/dL (< or = 0.50); Calcium 9.9 mg/dL (8.4-10.2); Carbon Dioxide 30 mmol/L (22-29); Chloride 102 mmol/L (96-108); Estimated Glomerular Filt Rate > 60; Glucose Random 93 mg/dL (60-115); Potassium 4.2 mmol/L (3.3-5.1); Sodium 139 mmol/L (135-145); Total Protein 7.8 g/dL (6.5-8.0)
[2023-01-30 16:04] LABS: Erythrocyte Sedimentation Rate 18 MM/HR (0-20)
[2023-01-31 11:58] LABS: Myeloperoxidase Antibody <1.0 AI; Proteinase 3 PR3 Antibodies <1.0 AI
[2023-02-02 12:18] LABS: HLA B27 Negative (Negative)
== END 2023-01-30 12:56 | disposition home or self-care (01) ==
LOC: HO.LAB 12:55
PROVIDERS: PCP Physician Assistant; Visit Provider Nurse Practitioner Family
DX: M06.00 Rheumatoid arthritis without rheumatoid factor, unspecified site (principal); G89.29 Other chronic pain; M25.562 Pain in left knee; M70.52 Other bursitis of knee, left knee; M47.26 Other spondylosis with radiculopathy, lumbar region; Z79.60 Long term (current) use of unspecified immunomodulators and immunosuppressants
CPT/HCPCS: 20610; 36415; 80053; 85025; 85652; 86021; 86140; 86812; 99212; J3301

== ENCOUNTER 2023-01-30 12:55 | Outpatient (AMB) | payer MEDICAID, SELFPAY ==
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
[2023-01-30 13:01] VITALS: BP 110/64; PULSE 59; TEMP 36.1; O2SAT 98; BMI 29.0
== END 2023-01-30 14:06 | disposition home or self-care (01) ==
PROVIDERS: PCP Physician Assistant; Visit Provider Nurse Practitioner Family
DX: M06.00 Rheumatoid arthritis without rheumatoid factor, unspecified site (principal); M25.562 Pain in left knee; G89.29 Other chronic pain; M70.52 Other bursitis of knee, left knee; M47.26 Other spondylosis with radiculopathy, lumbar region; Z79.60 Long term (current) use of unspecified immunomodulators and immunosuppressants
CPT/HCPCS: 20610; 99214

== ENCOUNTER 2023-03-02 13:13 | Outpatient (AMB) | payer MEDICAID, SELFPAY ==
[2023-03-02 13:18] VITALS: BP 104/62; PULSE 64; RESP 15; TEMP 36.6; O2SAT 98; BMI 29.1
--- NOTE | 2023-03-02 13:18 | A.OFFVIS_ITS ---
Intake Vital Signs 03/02/23 13:18 Height 5 ft 2 in Weight 159 lb 2.78 oz BMI 29.1 BP 104/62 Blood Pressure Location Lt brachial Position Sitting Respiration 15 Pulse 64 Pulse Source Pulse Oximeter Temp 97.9 F Temp Source Tympanic Pulse Oximetry (%) 98 Oxygen Delivery Method Room Air Intake Visit Reasons: RA - Allergies tramadol [Ultram] Allergy (Unknown, Verified 03/02/23 13:23) nausea and vomiting adalimumab [From Humira(CF)] Allergy (Verified 03/02/23 13:23) injection site reaction etanercept [From Enbrel] Allergy (Verified 03/02/23 13:23) Rash CT scan dye Allergy (Intermediate, Uncoded 03/02/23 13:23) trouble breathing From ULTRAM Allergy (Intermediate, Uncoded 03/02/23 13:23) N/V/DIZZINESS Medication List - Last Reconciled 03/02/23 by Lisa Arias RN abatacept (Orencia ClickJect) 125 mg subcut QWEEK albuterol sulfate 90 mcg/actuation 2 puffs inhalation Q6H PRN ascorbate calcium (vitamin C) 500 mg PO DAILY baclofen 10 mg PO BID qtsnrtwqnj-xnzonxsepbfqx-dzzi 50-325-40 mg 1 tab PO Q8H PRN citalopram 20 mg PO DAILY cyanocobalamin (vitamin B-12) 250 mcg PO DAILY dicyclomine 10 mg PO QID fluticasone propionate 50 mcg/actuation 1 spray intranasal BID fluticasone propionate 44 mcg/actuation (Flovent HFA) 1 puff inhalation BID L.acidoph-B.animalis-B.longum 15 billion cell 1 cap PO DAILY loratadine 10 mg PO DAILY PRN lorazepam 1 mg PO BID PRN pantoprazole 40 mg PO DAILY peg [id number]-oropgrdc 1-0.2-0.2 % (Artificial Tears (pg40 [id number]-[id number])) 1 drp ophthalmic (eye) BID-QID PRN pravastatin 40 mg PO DAILY propranolol ER 120 mg PO DAILY sennosides (Natural Senna Laxative) 8.6 mg PO DAILY simethicone (Gas Relief (simethicone)) 250 mg PO BID PRN valacyclovir 1,000 mg PO BID PRN HPI HPI Comments History of Present Illness Details Ms. Gregory, 47 yoF returns for follow-up of her seronegative rheumatoid arthritis. She was last here in January 2023. She is doing well on Orencia. continues with Left Sciatica discomfort. The left medial Knee Bursitis was im proved with the steroid injection per patient. She has Fibromylagia. Past Visit is Jan 2023. She had developed a rash while she was taking Orencia. However, she describes that the rash developed after her hysterectomy surgery. She had been taking Orencia for at least a few months. Based on the pictures she showed the rash looks like a vasculitis. She has restarted Orencia since last visit. She still has more pain mostly in the neck, shoulders, lower back, and left knee and ankle. I think these are more muscle stiffness from deconditioning Past Visit: In the past she had been on methotrexate but that caused elevated LFTs. Humira and Enbrel seemed to cause injection site reactions. She says the Orencia, up until the time it was discontinued, seemed to improve her symptoms. [facility] [place] Medical History Pes anserinus bursitis of left knee Pes anserine bursitis Degenerative joint disease (DJD) of lumbar spine Cervical spondylosis Thoracic spondylosis HTN (hypertension) IBS (irritable bowel syndrome) Hand numbness Fibromyalgia Seronegative rheumatoid arthritis Surgical History History of carpal tunnel release History of Hx of tubal ligation Hx of appendectomy H/O wisdom tooth extraction Family History Father HTN (hypertension) Prostate cancer Mother Meningitis Diabetes HTN (hypertension) Hyperlipidemia Son Asthma Social History Household Members: None Housing: Apartment Alcohol intake: never Patient Tobacco Use Status: Never used Tobacco Review of Systems Const All systems reviewed & are unremarkable except as noted in HPI and below Physical Exam Vital Signs: Last Vital Signs Temp 97.9 F 03/02/23 13:18 Pulse 64 03/02/23 13:18 Resp 15 03/02/23 13:18 BP 104/62 03/02/23 13:18 Pulse Ox 98 03/02/23 13:18 Oxygen Delivery Method Room Air 03/02/23 13:18 BMI result Body Mass Index 29.1 APPEARANCE: Patient in no acute distress EYES no redness, pupils equal and reactive to light, eyelids normal EXTREMITIES: No edema, no calf tenderness, normal peripheral pulses. SKIN: No inflammatory or neoplastic lesions. Normal color and turgor JOINT EXAM: Cervical Spine:? Mild to moderate pain with lateral flexion at 10 degrees of rotation beyond 20 degrees. There is no spinal tenderness but there is tenderness along the posterior cervical muscles. Thoracic Spine:? Widespread diffuse tenderness to palpation throughout. Lumbar Spine:? Alignment normal.? Pain with flexion at 45 degrees and attempts at extension.? Tenderness along the lumbar spinal muscles.? Hands: LEFT: Normal pain-free range of motion without tenderness, swelling, increased warmth or erythema. Able to make a full fist and has a good map maker strength.? RIGHT:? Normal pain-free range of motion without tenderness, swelling, increased warmth or erythema.? Able to make a full fist and has good map maker strength.? ?? Wrists:? Normal pain-free range of motion without tenderness, swelling, increased warmth or erythema. Elbows: Normal pain-free range of motion without tenderness, swelling, increased warmth or erythema. Shoulders:? Full range of motion with mild tenderness over the trapezius with extremes of motion. There is no abductor weakness, adenopathy, swelling, increased warmth or erythema.? Tenderness to palpation of bilateral upper biceps and forearms,? widespread diffuse tenderness to palpation in these areas, no erythema, swelling increased warmth. Hips:? Full range of motion with some lumbar pain at the extremes of normal range of motion. Hip bursa:? Bilateral mild trochanteric tenderness. Knees: LEFT:? Normal range of motion. ? No tenderness, swelling, increased warmth or erythema.? There is no effusion or crepitation.? RIGHT:? Normal pain-free range of motion without tenderness, swelling, increased warmth or erythema.? There is no effusion or crepitation. Ankles: Normal pain-free range of motion without tenderness, swelling, increased warmth or erythema. Feet: LEFT: Normal pain-free range of motion without tenderness, swelling, increased warmth or erythema. ? RIGHT:? Normal range of motion without tenderness, swelling increased warmth or erythema. Tender points:? Tenderness to digital palpation at the occiput, trapezius, second rib, lateral epicondyle.? No tenderness to gluteal area bilaterally. ? Results Reviewed Results Reviewed: Laboratory Tests 11/10/22 01/30/23 14:28 14:29 BUN 7 L AST 18 ALT 9 C-Reactive Protein 0.52 H Proteinase 3 (PR3) Ab <1.0 Myeloperoxidase Ab <1.0 HLA-B27 Negative TB Test (T-Spot) Com Negative TB Test Positive Cntrl Passed Assessment & Plan Assessment & Plan (1) Seronegative rheumatoid arthritis: Comment: Methotrexate-September 2018- May 2020 discontinued due to elevated LFTs Humira-August 2020-injection site reaction Enbrel-October 2020- April 2021- ? skin reaction Orencia-April 2021-present stopped; restarted 11/2022 Code(s): M06.00 - Rheumatoid arthritis without rheumatoid factor, unspecified site (2) Pes anserinus bursitis of left knee: Code(s): M70.52 - Other bursitis of knee, left knee (3) Long-term use of immunosuppressant medication: Code(s): Z79.60 - terminal gauger (current) use of unspecified immunomodulators and immunosuppressants Plan #SeroNeg RA: Ms. Gregory was diagnosed with Seronegative rheumatoid arthritis b ased on clinical symptoms, elevated inflammatory markers and ultrasound of hands showing extensor tenosynovitis. There is no tenosynovitis but she has pain in multiple areas. Her ESR/CRP remains elevated at 23 and 0.89 respectively. She will continue with Orencia and we will continue to monitor the effectiveness. The response to Orencia was apparent because her tenderness increased when she stopped it so I think it should be continued. She felt mild improvement from the 1 month course of Prednisone. As a note, the patient also suffers from Fibromyalgia. I think because of her fibromyalgia and deconditioned state she will always have a level of generalized body discomfort. Discussed with her that the medication for RA will not address the additional pain from the Fibro so it is important to know what we addressing with Orencia. This lessens the risk of labeling the medication as ineffective when it does not address unrelated pain syndromes. I also encouraged muscle strengthening with 5 lb weights and stretching. This is beneficial to muscle and joints. #Left Pes Anserine Bursitis There was marked improvement to the severe tenderness to her pes anserine bursa/knee left with the cortisone injections. #Lumbar Spine DDD: The next area of concern is her lower back with radiculopathy - sciatic nerve pain radiating down her left leg. She refuses PT. I recommended stretches and exercises that can help. #snf Use of Immunosuppressives: Given the use of Orencia, We will continue to monitor CBC and CMP for blood dyscrasias, kidney and liver functions. Orders: Orders C Reactive Protein 4 Months M06.00 - Rheumatoid arthritis without rheumatoid factor, unspecified site, Z79.60 - snf (current) use of unspecified immunomodulators and immunosuppressants Complete Blood Count Auto Diff 4 Months M06.00 - Rheumatoid arthritis without rheumatoid factor, unspecified site, Z79.60 - snf (current) use of unspecified immunomodulators and immunosuppressants, Z79.899 - Other prison (current) drug therapy Comprehensive Met. Panel 4 Months M06.00 - Rheumatoid arthritis without rheumatoid factor, unspecified site, Z79.60 - terminal gauger (current) use of unspecified immunomodulators and immunosuppressants Erythrocyte Sedimentation Rate 4 Months M06.00 - Rheumatoid arthritis without rheumatoid factor, unspecified site, Z79.60 - snf (current) use of unspecified immunomodulators and immunosuppressants Coding Level of Care Code Est Pt Level 3 (69502) Diagnoses Seronegative rheumatoid arthritis M06.00 Pes anserinus bursitis of left knee M70.52 Long-term use of immunosuppressant medication Z79.60
== END 2023-03-02 13:50 | disposition home or self-care (01) ==
PROVIDERS: PCP Physician Assistant; Visit Provider Nurse Practitioner Family
DX: M06.00 Rheumatoid arthritis without rheumatoid factor, unspecified site (principal); M70.52 Other bursitis of knee, left knee; Z79.60 Long term (current) use of unspecified immunomodulators and immunosuppressants
CPT/HCPCS: 99213

== ENCOUNTER → 2023-03-02 13:13 | Outpatient (BNVA) | payer MEDICAID, SELFPAY | PROVIDERS: PCP Physician Assistant; Visit Provider Nurse Practitioner Family | DX: M06.00 Rheumatoid arthritis without rheumatoid factor, unspecified site (principal); M70.52 Other bursitis of knee, left knee; Z79.60 Long term (current) use of unspecified immunomodulators and immunosuppressants | CPT/HCPCS: 99212 ==

== ENCOUNTER 2023-06-30 15:22 | Outpatient (REF) | payer MEDICAID, SELFPAY ==
[2023-06-30 15:36] LABS: MANUAL DIFF FLAG NO
[2023-06-30 17:06] LABS: Basophils Percent Auto 0.3 % (0-2); Eosinophils Absolute Auto 0.1 X10*3/uL (0.0-0.4); Eosinophils Percent Auto 1.3 % (0-4); Hematocrit 42.1 % (37.0-47.0); Hemoglobin 13.6 g/dl (12.0-16.0); Imm Gran Abs Auto 0.04 X10*3/uL (0.00-0.03); Imm Gran Pct Auto 0.6 % (0.0-0.4); Lymphocytes Absolute Auto 1.6 X10*3/uL (1.2-4.9); Lymphocytes Percent Auto 23.2 % (20-40); Mean Corpuscular HGB Conc 32.3 g/dl (31.0-35.0); Mean Corpuscular Hemoglobin 31.1 pg (27.0-33.0); Mean Corpuscular Volume 96.3 fL (80.0-98.0); Mean Platelet Volume 10.4 fL (9.4-12.3); Monocytes Absolute Auto 0.5 X10*3/uL (0.1-1.2); Monocytes Percent Auto 6.4 % (2-11); Neutrophils Absolute Auto 4.8 x10*3/uL (2.0-8.3); Neutrophils Percent Auto 68.2 % (45-73); Platelet Count 289 X10*3/uL (160-400); Red Blood Count 4.37 X10*6/uL (4.20-5.50); Red Cell Distribution Width 13.6 % (11.0-16.0)
[2023-06-30 17:40] LABS: Alanine Aminotransferase 12 U/L (0-31); Albumin Level 4.5 g/dL (3.5-5.0); Alkaline Phosphatase 69 U/L (39-117); Anion Gap 12 (12-20); Aspartate Amino Transferase 14 U/L (5-31); Bilirubin Total 0.3 mg/dL (0.0-1.0); Blood Urea Nitrogen 10 mg/dL (9-16); C Reactive Protein 0.95 mg/dL (< or = 0.50); Calcium 10.3 mg/dL (8.4-10.2); Carbon Dioxide 29 mmol/L (22-29); Chloride 103 mmol/L (96-108); Estimated Glomerular Filt Rate > 60; Glucose Random 87 mg/dL (60-115); Potassium 4.6 mmol/L (3.3-5.1); Sodium 139 mmol/L (135-145); Total Protein 8.1 g/dL (6.5-8.0)
[2023-06-30 18:01] LABS: Erythrocyte Sedimentation Rate 33 MM/HR (0-20)
== END 2023-06-30 15:23 | disposition home or self-care (01) ==
LOC: HO.LAB 15:22
PROVIDERS: PCP Physician Assistant; Visit Provider Nurse Practitioner Family
DX: M06.00 Rheumatoid arthritis without rheumatoid factor, unspecified site (principal); Z79.899 Other long term (current) drug therapy; Z79.60 Long term (current) use of unspecified immunomodulators and immunosuppressants
CPT/HCPCS: 36415; 80053; 85025; 85652; 86140

== ENCOUNTER 2023-07-04 13:41 | Outpatient (AMB) | payer MEDICAID, SELFPAY ==
--- NOTE | 2023-07-04 13:42 | MHC.OFFVIS ---
Intake Vital Signs 07/04/23 13:47 Height 5 ft 2 in Weight 156 lb 11.979 oz BMI 28.7 BP 118/70 Blood Pressure Location Rt brachial Position Sitting Pulse 71 Pulse Source Pulse Oximeter Pulse Oximetry (%) 96 Oxygen Delivery Method Room Air Intake Visit Reasons: RA, Left Sciatica Intake Note: Patient last seen 03/02/23, presents today for follow up and test results. 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 Gregory, 47 yoF returns for follow-up of her seronegative rheumatoid arthritis. She is not doing well on Orencia and has developed Psoriasis. She says her skin feels rough. She also says that both her hips hurt and it makes walking a challenge. Her lower back is also painful and steroid injections have not helped per patient- she continues with Left Sciatica discomfort. She says she has been having more pain overall. She is also following with GI for IBS. She also has Fibromylagia. Past Visit is Jan 2023. She had developed a rash while she was taking Orencia. However, she describes that the rash developed after her hysterectomy surgery. She had been taking Orencia for at least a few months. Based on the pictures she showed the rash looks like a vasculitis. She has restarted Orencia since last visit. She still has more pain mostly in the neck, shoulders, lower back, and left knee and ankle. I think these are more muscle stiffness from deconditioning Past Visit: In the past she had been on methotrexate but that caused elevated LFTs. Humira and Enbrel seemed to cause injection site reactions. She says the Orencia, up until the time it was discontinued, seemed to improve her symptoms. [facility] Medical History (Updated 07/04/23 @ 14:29 by MAISHA TierneyP-BC) Guttate psoriasis Trochanteric bursitis, left hip Pes anserinus bursitis of left knee Pes anserine bursitis Degenerative joint disease (DJD) of lumbar spine Cervical spondylosis Thoracic spondylosis HTN (hypertension) IBS (irritable bowel syndrome) Hand numbness Fibromyalgia Seronegative rheumatoid arthritis Surgical History History of carpal tunnel release History of Hx of tubal ligation Hx of appendectomy H/O wisdom tooth extraction Family History Father HTN (hypertension) Prostate cancer Mother Meningitis Diabetes HTN (hypertension) Hyperlipidemia Son Asthma Social History Household Members: None Housing: Apartment Alcohol intake: never Patient Tobacco Use Status: Never used Tobacco Review of Systems Const All systems reviewed & are unremarkable except as noted in HPI and below Physical Exam Vital Signs: Last Vital Signs Pulse 71 07/04/23 13:47 BP 118/70 07/04/23 13:47 Pulse Ox 96 07/04/23 13:47 Oxygen Delivery Method Room Air 07/04/23 13:47 BMI result Body Mass Index 28.7 APPEARANCE: Patient in no acute distress EYES no redness, pupils equal and reactive to light, eyelids normal EXTREMITIES: No edema, no calf tenderness, normal peripheral pulses. SKIN: scattered erythamatous base, scaly lesions to upper and lower extremities and abdomen- appearance of guttate psoriasis Normal color and turgor JOINT EXAM: Cervical Spine:? Mild to moderate pain with lateral flexion at 10 degrees of rotation beyond 20 degrees. There is no spinal tenderness but there is tenderness along the posterior cervical muscles. Thoracic Spine:? Widespread diffuse tenderness to palpation throughout. Lumbar Spine:? Alignment normal.? Pain with flexion at 45 degrees and attempts at extension.? Tenderness along the lumbar spinal muscles.? Hands: LEFT: Normal pain-free range of motion without tenderness, swelling, increased warmth or erythema. Able to make a full fist and has a good office engineer strength.? RIGHT:? Normal pain-free range of motion without tenderness, swelling, increased warmth or erythema.? Able to make a full fist and has good office engineer strength.? ?? Wrists:? Normal pain-free range of motion without tenderness, swelling, increased warmth or erythema. Elbows: Normal pain-free range of motion without tenderness, swelling, increased warmth or erythema. Shoulders:? Full range of motion with mild tenderness over the trapezius with extremes of motion. There is no abductor weakness, adenopathy, swelling, increased warmth or erythema.? Tenderness to palpation of bilateral upper biceps and forearms,? widespread diffuse tenderness to palpation in these areas, no erythema, swelling increased warmth. Hips:? Full range of motion with some lumbar pain at the extremes of normal range of motion. Hip bursa:? Bilateral mild trochanteric tenderness. Knees: LEFT:? Normal range of motion. ? No tenderness, swelling, increased warmth or erythema.? There is no effusion or crepitation.? RIGHT:? Normal pain-free range of motion without tenderness, swelling, increased warmth or erythema.? There is no effusion or crepitation. Ankles: Normal pain-free range of motion without tenderness, swelling, increased warmth or erythema. Feet: LEFT: Normal pain-free range of motion without tenderness, swelling, increased warmth or erythema. ? RIGHT:? Normal range of motion without tenderness, swelling increased warmth or erythema. Tender points:? Tenderness to digital palpation at the occiput, trapezius, second rib, lateral epicondyle.? No tenderness to gluteal area bilaterally. ? Office Procedures Joint Injection/Drain Joint Injection/Drain Primary Site: other (Left Trochanteric Bursitis) Prep: site was prepped using aseptic technique Injected: 40 mg of, Kenalog, with 1 mL of and 1% plain lidocaine Approach Used: posterolateral Procedure: The patient tolerated the procedure well Coding Procedure code (CPT) selection complete Results Reviewed Results Reviewed: Laboratory Tests 11/10/22 01/30/23 14:28 14:29 BUN 7 L AST 18 ALT 9 C-Reactive Protein 0.52 H Proteinase 3 (PR3) Ab <1.0 Myeloperoxidase Ab <1.0 HLA-B27 Negative TB Test (T-Spot) Com Negative TB Test Positive Cntrl Passed Laboratory Tests 06/30/23 15:35 WBC 7.0 RBC 4.37 Hgb 13.6 Hct 42.1 ESR 33 H Creatinine 0.65 AST 14 ALT 12 C-Reactive Protein 0.95 H Total Protein 8.1 H Assessment & Plan Assessment & Plan (1) Seronegative rheumatoid arthritis: Comment: Methotrexate-September 2018- May 2020 discontinued due to elevated LFTs Humira-August 2020-injection site reaction Enbrel-October 2020- April 2021- ? 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 Gregory was diagnosed with Seronegative rheumatoid arthritis based on clinical symptoms, elevated inflammatory markers and ultrasound of hands showing extensor tenosynovitis. There is no tenosynovitis but she has pain in multiple areas and today her lower back and trochanteric areas are most concerning to her. Her ESR/CRP is more elevated at 33 and 0.95 respectively since last visit also evidencing increased disease activity she describes feeling worse since last visit. She has developed Psoriasis, a known side effect of Orencia/TNF. We will stop Orencia and try Simponi 50mg QM Pen. The response to Orencia was apparent because her tenderness increased so hopefully the same will be with Simponi. She has history of elevated liver enzymes on MTX. As a note, the patient also suffers from Fibromyalgia. I think because of her fibromyalgia and deconditioned state she will always have a level of generalized body discomfort. Discussed with her that the medication for RA will not address the additional pain from the Fibro so it is important to know what we are addressing with immunosuppresives. This lessens the risk of labeling the medication as ineffective when it does not address unrelated pain syndromes. I also encouraged muscle strengthening with 5 lb weights and stretching. This is beneficial to muscle and joints. #Left Trochanteric Bursitis There is moderate tenderness to her Left hip bursa. I gave her a cortisone injection today. If it is effective and she decides, she can call for the other side to be done. She was hesitant to do both today. I gave her a print of precautions and also exercises that can be done later on. #Lumbar Spine DDD: The next area of concern is her lower back with radiculopathy - sciatic nerve pain radiating down her left leg. She refuses PT. I recommended stretches and exercises that can help. She does not want back injection. 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 Follow-up in 3 months I spent 35 minutes reviewing chart evaluating patient and documenting Orders: Orders Erythrocyte Sedimentation Rate Today M06.00 - Rheumatoid arthritis without rheumatoid factor, unspecified site, Z79.60 - senior living (current) use of unspecified immunomodulators and immunosuppressants Comprehensive Met. Panel Today M06.00 - Rheumatoid arthritis without rheumatoid factor, unspecified site, Z79.60 - assistant terminal manager (current) use of unspecified immunomodulators and immunosuppressants Protein Electrophoresis, Serum Today M06.00 - Rheumatoid arthritis without rheumatoid factor, unspecified site, Z79.60 - senior living (current) use of unspecified immunomodulators and immunosuppressants Immunofixation Pnl, Serum Today M06.00 - Rheumatoid arthritis without rheumatoid factor, unspecified site, Z79.60 - senior living (current) use of unspecified immunomodulators and immunosuppressants AMB Joint Injection/Aspiration 07/03/ M70.62 - Trochanteric bursitis, left hip Complete Blood Count Auto Diff Today M06.00 - Rheumatoid arthritis without rheumatoid factor, unspecified site, Z79.60 - senior living (current) use of unspecified immunomodulators and immunosuppressants C Reactive Protein Today M06.00 - Rheumatoid arthritis without rheumatoid factor, unspecified site, Z79.60 - senior living (current) use of unspecified immunomodulators and immunosuppressants Immunoglobulins,IgG IgA IgM Today M06.00 - Rheumatoid arthritis without rheumatoid factor, unspecified site, Z79.60 - assistant terminal manager (current) use of unspecified immunomodulators and immunosuppressants Medications: New clobetasol 0.05% Apply to lesions twice per day 1 appl topical BID 2 weeks 60 grams 0RF L40.4 - Guttate psoriasis prednisone orally daily; 3 tablets per day x 7 days 2 tablets per day x 7 days 1 tablet per day x 7 days 45 tabs 0RF M06.00 - Rheumatoid arthritis without rheumatoid factor, unspecified site Coding Level of Care Code Est Pt Level 4 (88295) Diagnoses Seronegative rheumatoid arthritis M06.00 Long-term use of immunosuppressant medication Z79.60 Trochanteric bursitis, left hip M70.62
[2023-07-04 13:47] VITALS: BP 118/70; PULSE 71; O2SAT 96; BMI 28.7
== END 2023-07-04 14:34 | disposition home or self-care (01) ==
PROVIDERS: PCP Physician Assistant; Visit Provider Nurse Practitioner Family
DX: M06.00 Rheumatoid arthritis without rheumatoid factor, unspecified site (principal); Z79.60 Long term (current) use of unspecified immunomodulators and immunosuppressants; M70.62 Trochanteric bursitis, left hip
CPT/HCPCS: 99214

== ENCOUNTER → 2023-07-04 13:41 | Outpatient (BNVA) | payer MEDICAID, SELFPAY | PROVIDERS: PCP Physician Assistant; Visit Provider Nurse Practitioner Family | DX: M06.00 Rheumatoid arthritis without rheumatoid factor, unspecified site (principal); M70.62 Trochanteric bursitis, left hip; Z79.60 Long term (current) use of unspecified immunomodulators and immunosuppressants | CPT/HCPCS: 99212 ==

== ENCOUNTER 2023-07-28 14:40 | Outpatient (AMB) | payer MEDICAID, SELFPAY ==
--- NOTE | 2023-07-28 14:40 | MHC.OFFVIS ---
Vital Signs 07/28/23 14:46 Height 5 ft 2 in Weight 156 lb 1.396 oz BMI 28.5 BP 130/70 Blood Pressure Location Rt brachial Position Sitting Pulse 74 Pulse Source Pulse Oximeter Pulse Oximetry (%) 97 Oxygen Delivery Method Room Air Intake Visit Reasons: Cortisone injection Intake Note: Patient of Dr. Rodriguez who presents today for right hip injection. Manager Culinary Required: No Accompanied by: Self / Same As Patient Allergies tramadol [Ultram] Allergy (Unknown, Verified 07/28/23 14:46) nausea and vomiting adalimumab [From Humira(CF)] Allergy (Verified 07/28/23 14:46) injection site reaction etanercept [From Enbrel] Allergy (Verified 07/28/23 14:46) Rash CT scan dye Allergy (Intermediate, Uncoded 07/28/23 14:46) trouble breathing From ULTRAM Allergy (Intermediate, Uncoded 07/28/23 14:46) N/V/DIZZINESS HPI Comments Details: Ms. Gregory, 47 yoF returns for follow-up of her seronegative rheumatoid arthritis. She is not doing well on Orencia and has developed Psoriasis. She says her skin feels rough. She also says that both her hips hurt and it makes walking a challenge. Her lower back is also painful and steroid injections have not helped per patient- she continues with Left Sciatica discomfort. She says she has been having more pain overall. She is also following with GI for IBS. She also has Fibromylagia. Past Visit is Jan 2023. She had developed a rash while she was taking Orencia. However, she describes that the rash developed after her hysterectomy surgery. She had been taking Orencia for at least a few months. Based on the pictures she showed the rash looks like a vasculitis. She has restarted Orencia since last visit. She still has more pain mostly in the neck, shoulders, lower back, and left knee and ankle. I think these are more muscle stiffness from deconditioning Past Visit: In the past she had been on methotrexate but that caused elevated LFTs. Humira and Enbrel seemed to cause injection site reactions. She says the Orencia, up until the time it was discontinued, seemed to improve her symptoms. [facility] Medical History (Updated 08/14/23 @ 23:19 by Natali Amita, BOILER CONTROL ROOM OPERATOR-BC) Trochanteric bursitis, right hip Guttate psoriasis Trochanteric bursitis, left hip Pes anserinus bursitis of left knee Pes anserine bursitis Degenerative joint disease (DJD) of lumbar spine Cervical spondylosis Thoracic spondylosis HTN (hypertension) IBS (irritable bowel syndrome) Hand numbness Fibromyalgia Seronegative rheumatoid arthritis Surgical History History of carpal tunnel release History of Hx of tubal ligation Hx of appendectomy H/O wisdom tooth extraction Family History Father HTN (hypertension) Prostate cancer Mother Meningitis Diabetes HTN (hypertension) Hyperlipidemia Son Asthma Social History Household Members: None Housing: Apartment Alcohol intake: never Patient Tobacco Use Status: Never used Tobacco Physical Exam Vital Signs: Last Vital Signs Pulse 74 07/28/23 14:46 BP 130/70 07/28/23 14:46 Pulse Ox 97 07/28/23 14:46 Oxygen Delivery Method Room Air 07/28/23 14:46 BMI result Body Mass Index 28.5 Vital signs reviewed. Constitutional: Non-toxic appearing. No acute distress. Well-developed and well-nourished. HEENT: Normocephalic and atraumatic. External auditory canals without erythema or edema bilaterally. Dry mucous membranes. No pharyngeal erythema or exudates. Skin: Warm and dry. No rashes or lesions noted. Cardio: Regular rate and rhythm. No murmurs, gallops, or rubs. No lower extremity edema. No JVD. Pulmonary: No respiratory distress. No accessory muscle usage. Musculoskeletal: Normal range of motion in joints throughout the body with varied levels of discomfort. No deformity or other signs of injury. Neuro: Alert and oriented x4. Cranial nerves 2-12 grossly intact. No focal deficits appreciated. Hip bursa:? Bilateral mild trochanteric tenderness. ? Assessment & Plan Assessment & Plan (1) Trochanteric bursitis, left hip: Code(s): M70.62 - Trochanteric bursitis, left hip Category: Medical (2) Trochanteric bursitis, right hip: Code(s): M70.61 - Trochanteric bursitis, right hip Category: Medical Plan #Left Trochanteric: improved with injection at last visit. Patient can sleep better on her left side. #Right Trochanteric Bursitis: There is moderate to severe tenderness to her right hip bursa. I gave her a cortisone injection today. I gave her a print of precautions and also exercises that can be done later on. Aseptic Technique, Right Trochanteric area cleansed with chlorohexadine, injected with Kenalog 40 mg and 1% Lidocaine 2 ml. Patient tolerated procedure well. I spent 10 minutes reviewing chart evaluating patient and documenting Coding Level of Care Code Procedure Only Diagnoses Trochanteric bursitis, left hip M70.62 Trochanteric bursitis, right hip M70.61
[2023-07-28 14:46] VITALS: BP 130/70; PULSE 74; O2SAT 97; BMI 28.5
== END 2023-07-28 15:02 | disposition home or self-care (01) ==
LOC: HO.RHE 14:40
PROVIDERS: PCP Physician Assistant; Visit Provider Nurse Practitioner Family
DX: M70.62 Trochanteric bursitis, left hip (principal); M70.61 Trochanteric bursitis, right hip
CPT/HCPCS: 20610

== ENCOUNTER → 2023-07-28 14:40 | Outpatient (BNVA) | payer MEDICAID, SELFPAY | PROVIDERS: PCP Physician Assistant; Visit Provider Nurse Practitioner Family | DX: M70.61 Trochanteric bursitis, right hip (principal); M70.62 Trochanteric bursitis, left hip | CPT/HCPCS: 20610; J3301 ==

== ENCOUNTER 2023-09-05 13:35 | Outpatient (AMB) | payer MEDICAID, SELFPAY ==
[2023-09-05 13:36] VITALS: BP 108/64; PULSE 62; O2SAT 97; BMI 28.0
--- NOTE | 2023-09-05 13:36 | A.OFFVIS_ITS ---
Vital Signs 09/05/23 13:36 Height 5 ft 2 in Weight 153 lb 0.013 oz BMI 28.0 BP 108/64 Blood Pressure Location Rt brachial Position Sitting Pulse 62 Pulse Source Pulse Oximeter Pulse Oximetry (%) 97 Oxygen Delivery Method Room Air Intake Visit Reasons: SeroNeg RA/Chg Meds/Gave Pred and Clobetasol Intake Note: Patient last seen 07/28/23 by Amita, presents today for follow up. 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 Gregory, 47 yoF returns for follow-up of her seronegative rheumatoid arthritis. She is not doing well on Orencia and had developed Psoriasis. However, she did not yet start the new medicaiton Simponi and has not taken any meds for RA in the last rwo months. She was afraind to have the same thing happened as with orencia. She is having more hand pain. Her lower back is also painful and steroid injections have not helped per patient- she continues with Left Sciatica discomfort. She says she has been having more pain overall. She is also following with GI for IBS. She also has Fibromylagia. Past Visit is Jan 2023. She had developed a rash while she was taking Orencia. However, she describes that the rash developed after her hysterectomy surgery. She had been taking Orencia for at least a few months. Based on the pictures she showed the rash looks like a vasculitis. She has restarted Orencia since last visit. She still has more pain mostly in the neck, shoulders, lower back, and left knee and ankle. I think these are more muscle stiffness from deconditioning Past Visit: In the past she had been on methotrexate but that caused elevated LFTs. Humira and Enbrel seemed to cause injection site reactions. She says the Orencia, up until the time it was discontinued, seemed to improve her symptoms. [facility] Medical History (Updated 08/14/23 @ 23:19 [facility] Trochanteric bursitis, right hip Guttate psoriasis Trochanteric bursitis, left hip Pes anserinus bursitis of left knee Pes anserine bursitis Degenerative joint disease (DJD) of lumbar spine Cervical spondylosis Thoracic spondylosis HTN (hypertension) IBS (irritable bowel syndrome) Hand numbness Fibromyalgia Seronegative rheumatoid arthritis Surgical History History of carpal tunnel release History of Hx of tubal ligation Hx of appendectomy H/O wisdom tooth extraction Family History Father HTN (hypertension) Prostate cancer Mother Meningitis Diabetes HTN (hypertension) Hyperlipidemia Son Asthma Social History Household Members: None Housing: Apartment Alcohol intake: never Patient Tobacco Use Status: Never used Tobacco Physical Exam Vital Signs: Last Vital Signs Pulse 62 09/05/23 13:36 BP 108/64 09/05/23 13:36 Pulse Ox 97 09/05/23 13:36 Oxygen Delivery Method Room Air 09/05/23 13:36 BMI result Body Mass Index 28.0 APPEARANCE: Patient in no acute distress EYES no redness, pupils equal and reactive to light, eyelids normal EXTREMITIES: No edema, no calf tenderness, normal peripheral pulses. SKIN: scattered erythamatous base, scaly lesions to upper and lower extremities and abdomen- appearance of guttate psoriasis Normal color and turgor JOINT EXAM: Cervical Spine:? Mild to moderate pain with lateral flexion at 10 degrees of rotation beyond 20 degrees. There is no spinal tenderness but there is tenderness along the posterior cervical muscles. Thoracic Spine:? Widespread diffuse tenderness to palpation throughout. Lumbar Spine:? Alignment normal.? Pain with flexion at 45 degrees and attempts at extension.? Tenderness along the lumbar spinal muscles.? Hands: LEFT: Normal pain-free range of motion without tenderness, swelling, increased warmth or erythema. 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 RIGHT:? Normal pain-free range of motion without tenderness, swelling, increased warmth or erythema.? 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 ?? Wrists:? Normal pain-free range of motion without tenderness, swelling, increased warmth or erythema. Elbows: Normal pain-free range of motion without tenderness, swelling, increased warmth or erythema. Shoulders:? Full range of motion with mild tenderness over the trapezius with extremes of motion. There is no abductor weakness, adenopathy, swelling, increased warmth or erythema.? Tenderness to palpation of bilateral upper biceps and forearms,? widespread diffuse tenderness to palpation in these areas, no erythema, swelling increased warmth. Hips:? Full range of motion with some lumbar pain at the extremes of normal range of motion. Hip bursa:? Bilateral mild trochanteric tenderness. Knees: LEFT:? Normal range of motion. ? No tenderness, swelling, increased warmth or erythema.? There is no effusion or crepitation.? RIGHT:? Normal pain-free range of motion without tenderness, swelling, increased warmth or erythema.? There is no effusion or crepitation. Ankles: Normal pain-free range of motion without tenderness, swelling, increased warmth or erythema. Feet: LEFT: Normal pain-free range of motion without tenderness, swelling, increased warmth or erythema. ? RIGHT:? Normal range of motion without tenderness, swelling increased warmth or erythema. Tender points:? Tenderness to digital palpation at the occiput, trapezius, second rib, lateral epicondyle.? No tenderness to gluteal area bilaterally. ? Assessment & Plan Assessment & Plan (1) Trochanteric bursitis, left hip: Code(s): M70.62 - Trochanteric bursitis, left hip Category: Medical (2) Trochanteric bursitis, right hip: Code(s): M70.61 - Trochanteric bursitis, right hip Category: Medical (3) Seronegative rheumatoid arthritis: Comment: Methotrexate-September 2018- May 2020 discontinued due to elevated LFTs Humira-August 2020-injection site reaction Enbrel-October 2020- April 2021- ? skin reaction Orencia-April 2021-present stopped; restarted 11/2022 Code(s): M06.00 - Rheumatoid arthritis without rheumatoid factor, unspecified site Category: Medical (4) Long-term use of immunosuppressant medication: Code(s): Z79.60 - [facility] (current) use of unspecified immunomodulators and immunosuppressants Category: Medical Plan #SeroNeg RA: Ms. Gregory was diagnosed with Seronegative rheumatoid arthritis based on clinical symptoms, elevated inflammatory markers and ultrasound of hands showing extensor tenosynovitis. There is no tenosynovitis but she has pain in multiple areas and today her lower back and trochanteric areas are most concerning to her. Her ESR/CRP is more elevated at 33 and 0.95 respectively since last visit also evidencing increased disease activity she describes feeling worse since last visit in June. She had developed Psoriasis, a known side effect of Orencia/TNF. We had stopped Orencia and try Simponi 50mg QM Pen but to date she had not started Simponi for the last two months. The psoriasis has since resolved. The response to Orencia was apparent because her tenderness increased so hopefully the same will be with Simponi. She has history of elevated liver enzymes on MTX. #FM:As a note, the patient also suffers from Fibromyalgia. I think because of her fibromyalgia and deconditioned state she will always have a level of generalized body discomfort. Discussed with her that the medication for RA will not address the additional pain from the Fibro so it is important to know what we are addressing with immunosuppresives. This lessens the risk of labeling the medication as ineffective when it does not address unrelated pain syndromes. Gabapentin, cymbalta makes her sleepy I also encouraged muscle strengthening with 5 lb weights and stretching. This is beneficial to muscle and joints. #Right Trochanteric Bursitis: Very improve with cortisone injection from last visit.. #Lumbar Spine DDD: The next area of concern is her lower back with radiculopathy - sciatic nerve pain radiating down her left leg. She refuses PT. I recommended stretches and exercises that can help. She does not want back injection. 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 Patient knows not to take Simponi in the event of fever, infection. Follow-up in 3 months I spent 35 minutes reviewing chart evaluating patient and documenting I spent 10 minutes reviewing chart evaluating patient and documenting Coding Level of Care Code Est Pt Level 3 (86923) Complex EM visit Add On G2211 Diagnoses Trochanteric bursitis, left hip M70.62 Trochanteric bursitis, right hip M70.61 Seronegative rheumatoid arthritis M06.00 Long-term use of immunosuppressant medication Z79.60
== END 2023-09-05 14:21 | disposition home or self-care (01) ==
PROVIDERS: PCP Physician Assistant; Visit Provider Nurse Practitioner Family
DX: M06.09 Rheumatoid arthritis without rheumatoid factor, multiple sites (principal); M70.62 Trochanteric bursitis, left hip; M70.61 Trochanteric bursitis, right hip; Z79.60 Long term (current) use of unspecified immunomodulators and immunosuppressants
CPT/HCPCS: 99213; G2211

== ENCOUNTER → 2023-09-05 13:35 | Outpatient (BNVA) | payer MEDICAID, SELFPAY | PROVIDERS: PCP Physician Assistant; Visit Provider Nurse Practitioner Family | DX: M70.62 Trochanteric bursitis, left hip (principal); M70.61 Trochanteric bursitis, right hip; M06.00 Rheumatoid arthritis without rheumatoid factor, unspecified site; M79.7 Fibromyalgia; M51.36 Other intervertebral disc degeneration, lumbar region; Z79.60 Long term (current) use of unspecified immunomodulators and immunosuppressants | CPT/HCPCS: 99212 ==

== ENCOUNTER 2024-01-10 13:02 | Outpatient (AMB) | payer MEDICAID, SELFPAY ==
--- NOTE | 2024-01-10 13:23 | A.OFFVIS_ITS ---
Vital Signs 3 01/10/24 13:27 Height 5 ft 2 in Weight 153 lb 10.595 oz BMI 28.1 BP 102/60 Blood Pressure Location Lt brachial Position Sitting Pulse 68 Pulse Source Pulse Oximeter Pulse Oximetry (%) 97 Oxygen Delivery Method Room Air Intake Visit Reasons: SeroNeg RA chg from [facility] to [facility] Intake Note: Patient presents for SeroNeg RA. Allergies tramadol [Ultram] Allergy (Unknown, Verified 01/10/24 13:25) nausea and vomiting adalimumab [From Humira(CF)] Allergy (Verified 01/10/24 13:25) injection site reaction etanercept [From Enbrel] Allergy (Verified 01/10/24 13:25) Rash CT scan dye Allergy (Intermediate, Uncoded 09/05/23 13:39) trouble breathing From ULTRAM Allergy (Intermediate, Uncoded 09/05/23 13:39) N/V/DIZZINESS Medication List - Last Reconciled 01/10/24 by Jaden Rodriguez MD albuterol sulfate 90 mcg/actuation 2 puffs inhalation Q6H PRN ascorbate calcium (vitamin C) 500 mg PO DAILY budesonide-formoterol 80-4.5 mcg/actuation (Symbicort) 2 puffs inhalation BID olacbjidbx-ikfscablyssqv-xdwi 50-325-40 mg 1 tab PO Q8H PRN citalopram 20 mg PO DAILY clobetasol 0.05% 1 appl topical BID 2 weeks cyanocobalamin (vitamin B-12) 250 mcg PO DAILY dicyclomine 10 mg PO QID fluticasone propionate 50 mcg/actuation 1 spray intranasal BID fluticasone propionate 44 mcg/actuation (Flovent HFA) 1 puff inhalation BID L.acidoph-B.animalis-B.longum 15 billion cell 1 cap PO DAILY loratadine 10 mg PO DAILY PRN lorazepam 1 mg PO BID PRN mirtazapine mg PO pantoprazole 40 mg PO DAILY peg [id number]-tptisqueabkp-cpsihrok 1-0.2-0.2 % (Artificial Tears ([id number])) 1 drp ophthalmic (eye) BID-QID PRN pravastatin 40 mg PO DAILY propranolol ER 120 mg PO DAILY sennosides (Natural Senna Laxative) 8.6 mg PO DAILY simethicone (Gas Relief (simethicone)) 250 mg PO BID PRN valacyclovir 1,000 mg PO BID PRN HPI Comments Details: This is a 48-year-old female with seronegative RA who presents for follow-up. After last visit patient was switched from Orencia to Simponi. Patient states that she did 2 or 3 injections then discontinued it due to numbness involving her right 5th finger. She states that she continues to have diffuse pains especially in her left upper back and left lower and left buttock. She states that she has minimal rashes on the outer aspect of her right ankle. Her sister had psoriasis. She denies any swollen joints today. [facility] Medical History Trochanteric bursitis, right hip Guttate psoriasis Trochanteric bursitis, left hip Pes anserinus bursitis of left knee Pes anserine bursitis Degenerative joint disease (DJD) of lumbar spine Cervical spondylosis Thoracic spondylosis HTN (hypertension) IBS (irritable bowel syndrome) Hand numbness Fibromyalgia Seronegative rheumatoid arthritis Surgical History History of carpal tunnel release History of Hx of tubal ligation Hx of appendectomy H/O wisdom tooth extraction Family History (Updated 01/10/24 @ 13:55 by Jaden Rodriguez MD) Father HTN (hypertension) Prostate cancer Mother Meningitis Diabetes HTN (hypertension) Hyperlipidemia Son Asthma Sister Psoriasis Social History Household Members: None Housing: Apartment Alcohol intake: never Patient Tobacco Use Status: Never used Tobacco Review of Systems [facility] [place] Reports arthralgias, Denies joint swelling and Reports numbness Skin/Breast Reports rash Neuro Reports numbness Physical Exam Vital Signs: Last Vital Signs Pulse 68 01/10/24 13:27 BP 102/60 01/10/24 13:27 Pulse Ox 97 01/10/24 13:27 Oxygen Delivery Method Room Air 01/10/24 13:27 BMI result Body Mass Index 28.1 Const General: cooperative, healthy appearing and comfortable Nutritional Appearance: average body habitus Orientation/consciousness: patient oriented x3 Limitations: no limitations HEENT Head: Yes normocephalic and Yes atraumatic Mouth: moist mucous membranes Resp Effort & Inspection: normal respiratory effort and able to speak in complete sentences Auscultation: clear to auscultation bilaterally Skin Other: Very subtle psoriasis like rash on outer aspect of right ankle Patient showed me pictures of how her skin condition involved in 2020. Neuro General: patient oriented x3 Extrem Other: No active synovitis today Left buttock tenderness to palpation Lana test 10-15 cm Multiple fibromyalgia tender points Results Reviewed Results Reviewed: Right hand and wrist ultrasound 09/2017 Findings mild fluid filling within the 6th, 2nd, 3rd and 4th digit compartments with associated tendons intact. Trace fluid adjacent to the flexor carpi radialis tendon with no tendon tear. No definable mass or fluid collection within the carpal tunnel Normal appearance to the ulnar styloid accounting for mild fluid within the 6th extensor tendon sheath. No erosions No erosions noted affecting the 2nd or 5th MCP joints No pannus identified Impression Mild tenosynovitis affecting multiple extensor compartments. No erosive change noted. No pannus formation Assessment & Plan Assessment & Plan (1) Seronegative rheumatoid arthritis: Comment: Methotrexate-September 2018- May 2020 discontinued due to elevated LFTs Humira-August 2020-injection site reaction Enbrel-October 2020- April 2021- ? skin reaction Orencia-April 2021-present stopped; restarted 11/2022 DC 06/2023 due to psoriasis rash Simponi 06/2023 self DC 10/2023 due to finger numbness Code(s): M06.00 - Rheumatoid arthritis without rheumatoid factor, unspecified site Category: Medical Plan: This is a 48-year-old female with seronegative arthritis who presents for follow-up. Patient use Simponi for 2-3 months then discontinued it due to finger numbness. Upon evaluation today I do not see any active synovitis that requires DMARDs. However I would like to better understand patient's condition. Orencia was discontinued due to development of psoriasis. Potentially patient has psoriasis and psoriatic arthritis. Her sister has psoriasis. The rash she developed in 2020, was around the time she was on Enbrel. It is unclear whether this was a reaction to Enbrel. At the time patient also had surgery. The rash looks vasculitic. Patient states that she was evaluated by a federal air marshal and was told that this was emboli. She was prescribed antibiotics with resolution. I will repeat her inflammatory markers. Check bilateral SI joint x-rays Continue to follow patient off DMARDs at this time Labs today and before next visit in 3 months (2) Skin rash: Code(s): R21 - Rash and other nonspecific skin eruption Category: Medical Plan: Check ANCA panel and antiphospholipid antibody syndrome panel (3) Fibromyalgia: Code(s): M79.7 - Fibromyalgia Category: Medical Plan: Advised patient to incorporate some light exercises. Consider aquatherapy Plan This is patient's 1st visit with me, I spent 46 minutes reviewing patient's chart, looking at old records from old EMR evaluating patient, ordering diagnostic workup, counseling patient and documenting in the chart Orders: Orders 2 Comprehensive Met. Panel Today L40.50 - Arthropathic psoriasis, unspecified Complete Blood Count Auto Diff 3 Months M06.00 - Rheumatoid arthritis without rheumatoid factor, unspecified site Erythrocyte Sedimentation Rate 3 Months M06.00 - Rheumatoid arthritis without rheumatoid factor, unspecified site Lupus Anticoagulant Panel Today I77.6 - Arteritis, unspecified Complete Blood Count Auto Diff Today L40.50 - Arthropathic psoriasis, unspecified C Reactive Protein Today L40.50 - Arthropathic psoriasis, unspecified Erythrocyte Sedimentation Rate Today L40.50 - Arthropathic psoriasis, unspecified Hepatitis A,B,C Profile Today Z11.59 - Encounter for screening for other viral diseases T Spot TB Today Z11.7 - Encounter for testing for latent tuberculosis infection Comprehensive Met. Panel 3 Months M06.00 - Rheumatoid arthritis without rheumatoid factor, unspecified site C Reactive Protein 3 Months M06.00 - Rheumatoid arthritis without rheumatoid factor, unspecified site XR sacroiliac joint min 3V Today M79.18 - Myalgia, other site ANCA Vasculitides Today I77.6 - Arteritis, unspecified Beta-2 Glycoprotein Antibody Today I77.6 - Arteritis, unspecified Cardiolipin Antibodies Today I77.6 - Arteritis, unspecified Coding Level of Care Code Est Pt Level 5 (35355) Complex EM visit Add On G2211 Diagnoses Seronegative rheumatoid arthritis M06.00 Skin rash R21 Fibromyalgia M79.7
[2024-01-10 13:27] VITALS: BP 102/60; PULSE 68; O2SAT 97; BMI 28.1
== END 2024-01-10 13:48 | disposition home or self-care (01) ==
PROVIDERS: PCP Physician Assistant; Visit Provider Student in an Organized Health Care Education/Training Program
DX: M06.00 Rheumatoid arthritis without rheumatoid factor, unspecified site (principal); R21 Rash and other nonspecific skin eruption; M79.7 Fibromyalgia
CPT/HCPCS: 99215

== ENCOUNTER → 2024-01-10 13:02 | Outpatient (BNVA) | payer MEDICAID, SELFPAY | PROVIDERS: PCP Physician Assistant; Visit Provider Student in an Organized Health Care Education/Training Program | DX: M06.00 Rheumatoid arthritis without rheumatoid factor, unspecified site (principal); M79.7 Fibromyalgia; R21 Rash and other nonspecific skin eruption | CPT/HCPCS: 99212 ==

== ENCOUNTER 2024-03-26 13:59 | Outpatient (REF) | payer MEDICAID, SELFPAY ==
--- NOTE | ~2024-03-26 | XR_ITS ---
CLINICAL HISTORY: M79.18 - Myalgia, other site 3 views sacroiliac joints Comparison: None Findings No acute fractures. No significant degenerative change. No erosions. IMPRESSION: No acute findings This document has been electronically signed by: Favian Elena MD on 03/28/2024 18:18:43
[2024-03-26 14:32] LABS: MANUAL DIFF FLAG NO
[2024-03-26 14:45] LABS: Basophils Percent Auto 0.4 % (0-2); Eosinophils Absolute Auto 0.1 X10*3/uL (0.0-0.4); Eosinophils Percent Auto 1.5 % (0-4); Hematocrit 41.5 % (37.0-47.0); Hemoglobin 13.5 g/dl (12.0-16.0); Imm Gran Abs Auto 0.02 X10*3/uL (0.00-0.03); Imm Gran Pct Auto 0.4 % (0.0-0.4); Lymphocytes Absolute Auto 1.6 X10*3/uL (1.2-4.9); Lymphocytes Percent Auto 29.8 % (20-40); Mean Corpuscular HGB Conc 32.5 g/dl (31.0-35.0); Mean Corpuscular Volume 95.2 fL (80.0-98.0); Mean Platelet Volume 10.3 fL (9.4-12.3); Monocytes Absolute Auto 0.3 X10*3/uL (0.1-1.2); Monocytes Percent Auto 6.2 % (2-11); Neutrophils Absolute Auto 3.3 x10*3/uL (2.0-8.3); Neutrophils Percent Auto 61.7 % (45-73); Platelet Count 246 X10*3/uL (160-400); Red Blood Count 4.36 X10*6/uL (4.20-5.50); Red Cell Distribution Width 13.2 % (11.0-16.0); White Blood Count 5.3 X10*3/uL (4.8-10.8)
[2024-03-26 15:27] LABS: Erythrocyte Sedimentation Rate 15 MM/HR (0-20)
[2024-03-26 15:30] LABS: Alanine Aminotransferase 14 U/L (0-31); Albumin Level 4.3 g/dL (3.5-5.0); Alkaline Phosphatase 69 U/L (39-117); Anion Gap 7 (12-20); Aspartate Amino Transferase 19 U/L (5-31); Bilirubin Total 0.3 mg/dL (0.0-1.0); Blood Urea Nitrogen 10 mg/dL (9-16); C Reactive Protein 0.76 mg/dL (< or = 0.50); Carbon Dioxide 30 mmol/L (22-29); Chloride 108 mmol/L (96-108); Estimated Glomerular Filt Rate > 60; Glucose Random 95 mg/dL (60-115); Potassium 4.1 mmol/L (3.3-5.1); Sodium 141 mmol/L (135-145); Total Protein 7.8 g/dL (6.5-8.0)
[2024-03-27 09:27] LABS: HBS Num1 37.52 mIU/mL (0-7.99); HBc Num1 0.13 S/CO (0.00-0.79); HBsAGNum1 0.39 S/CO (0.00-0.99); Hepatitis A Antibody IgM 0.12 Index (0-0.79); Hepatitis B Core Antibody Nonreactive (Nonreactive); Hepatitis B Surface Antigen Negative (Negative); ~HepC Num1 0.12 S/CO (0.00-0.79); ~Hepatitis A Antibody IgM Nonreactive (Nonreactive); ~Hepatitis B Surface Antibody REACTIVE (Nonreactive); ~Hepatitis C Antibody Nonreactive (Nonreactive)
[2024-03-28 00:08] LABS: Myeloperoxidase Antibody <1.0 AI; Proteinase 3 PR3 Antibodies <1.0 AI
[2024-03-28 18:13] LABS: PTT (LAC) Screen 27 sec (<=40)
[2024-03-28 21:34] LABS: Cardiolipin IgG Ab <2.0 GPL-U/mL
[2024-03-28 22:24] LABS: Prot Elec - Albumin 4.6 g/dL (3.8-4.8); Prot Elec - Alpha1 0.3 g/dL (0.2-0.3); Prot Elec - Alpha2 0.7 g/dL (0.5-0.9); Prot Elec - Beta 1 0.5 g/dL (0.4-0.6); Prot Elec - Beta 2 0.5 g/dL (0.2-0.5); Prot Elec - Gamma 1.1 g/dL (0.8-1.7); Prot Elec - Total Protein 7.6 g/dL (6.1-8.1)
[2024-03-29 09:13] LABS: IgA 373 mg/dL (47-310); IgG 1231 mg/dL (600-1640); IgM 81 mg/dL (50-300)
[2024-03-29 22:19] LABS: TS Negative Control Passed; TS Panel A 0; TS Panel B 0; TS Positive Control Passed; TSpotTB Negative (Negative)
[2024-03-29 23:38] LABS: Beta-2 Glycoprotein IgA <2.0 U/mL (<20.0); Beta-2 Glycoprotein IgG <2.0 U/mL (<20.0); Beta-2 Glycoprotein IgM <2.0 U/mL (<20.0)
== END 2024-03-26 14:00 | disposition home or self-care (01) ==
LOC: HO.LAB 13:59
PROVIDERS: Nurse Practitioner Family; PCP Physician Assistant; Visit Provider Student in an Organized Health Care Education/Training Program
DX: L40.50 Arthropathic psoriasis, unspecified (principal); M06.00 Rheumatoid arthritis without rheumatoid factor, unspecified site; Z11.59 Encounter for screening for other viral diseases; Z11.7 Encounter for testing for latent tuberculosis infection; I77.6 Arteritis, unspecified; Z79.60 Long term (current) use of unspecified immunomodulators and immunosuppressants; M79.18 Myalgia, other site
CPT/HCPCS: 36415; 72202; 80053; 82784; 84165; 85025; 85597; 85598; 85613; 85652; 85730; 86021; 86140; 86146; 86147; 86334; 86481; 86704; 86706; 86709; 86803; 87340

== ENCOUNTER → 2024-03-26 14:30 | Outpatient (BNV) | payer MEDICAID, SELFPAY | PROVIDERS: PCP Physician Assistant; Visit Provider Specialist | DX: M79.18 Myalgia, other site (principal) | CPT/HCPCS: 72202 ==

== ENCOUNTER 2024-04-19 12:47 | Outpatient (AMB) | payer MEDICAID, SELFPAY ==
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
--- NOTE | 2024-04-19 13:01 | A.OFFVIS_ITS ---
Vital Signs 04/19/24 13:06 Height 5 ft 2 in Weight 154 lb 8.705 oz BMI 28.3 BP 102/64 Blood Pressure Location Rt brachial Position Sitting Pulse 72 Pulse Source Pulse Oximeter Pulse Oximetry (%) 96 Oxygen Delivery Method Room Air Intake Visit Reasons: RA Intake Note: Patient presents for RA. Allergies tramadol [Ultram] Allergy (Unknown, Verified 04/19/24 13:04) nausea and vomiting adalimumab [From Humira(CF)] Allergy (Verified 04/19/24 13:04) injection site reaction etanercept [From Enbrel] Allergy (Verified 04/19/24 13:04) Rash CT scan dye Allergy (Intermediate, Uncoded 09/05/23 13:39) trouble breathing From ULTRAM Allergy (Intermediate, Uncoded 09/05/23 13:39) N/V/DIZZINESS Medication List - Last Reconciled 04/19/24 by Jo Almeida MD albuterol sulfate 90 mcg/actuation 2 puffs inhalation Q6H PRN ascorbate calcium (vitamin C) 500 mg PO DAILY budesonide-formoterol 80-4.5 mcg/actuation (Symbicort) 2 puffs inhalation BID olfvejietl-hmngipehovurh-zsto 50-325-40 mg 1 tab PO Q8H PRN citalopram 20 mg PO DAILY clobetasol 0.05% 1 appl topical BID 2 weeks cyanocobalamin (vitamin B-12) 250 mcg PO DAILY dicyclomine 10 mg PO QID fluticasone propionate 50 mcg/actuation 1 spray intranasal BID fluticasone propionate 44 mcg/actuation (Flovent HFA) 1 puff inhalation BID gabapentin 100 mg PO BEDTIME L.acidoph-B.animalis-B.longum 15 billion cell 1 cap PO DAILY loratadine 10 mg PO DAILY PRN lorazepam 1 mg PO BID PRN methylprednisolone 4 mg orally; Take 4 pills for 10 days, then 3 pills for 10 days, then 2 pills for 10 days then 1 pill for 10 days mirtazapine mg PO pantoprazole 40 mg PO DAILY peg [id number]-[id number] 1-0.2-0.2 % (Artificial Tears ([id number])) 1 drp ophthalmic (eye) BID-QID PRN pravastatin 40 mg PO DAILY propranolol ER 120 mg PO DAILY sennosides (Natural Senna Laxative) 8.6 mg PO DAILY simethicone (Gas Relief (simethicone)) 250 mg PO BID PRN valacyclovir 1,000 mg PO BID PRN HPI Comments Details: Patient is a 48-year-old female with depression, hyperlipidemia, hypertension, 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 Rodriguez. At that time patient was eliecerkrystal isaacs followed up after being switch from Orencia to Simponi. She unfortunately self-discontinued the Simponi due to having numbness involving her right 5th finger after 2 or 3 injections. At that time she also had a rash that was concerning for guttate psoriasis versus vasculitis. She did not have any evidence of synovitis on examination at that time and so the plan was to monitor her off DMARDs. Today, Since stopping the medication she has been having pain and swelling particularly in her ankles and hands. Has AM stiffness but unable to determine the duration Feels it does not improve throughout the day, it remains the same Had umbilical hernia repair 2 weeks ago and had shingles subsequently Rheumatologic History: Patient was 1st diagnosed with seronegative arthritis around 2019 based on elevated inflammatory markers and clinical symptoms an ultrasound of hand showing tenosynovitis in the extensor compartments Methotrexate-September 2018- May 2020 discontinued due to elevated LFTs Humira-August 2020-injection site reaction Enbrel-October 2020- April 2021- ? skin reaction Orencia-April 2021-present stopped; restarted 11/2022 DC 06/2023 due to psoriasis rash Simponi 06/2023 self DC 10/2023 due to finger numbness Current Rheumatology Medication(s): [facility] Medical History (Updated 04/19/24 @ 13:05 by NIKKIE Lira) Umbilical hernia Trochanteric bursitis, right hip Guttate psoriasis Trochanteric bursitis, left hip Pes anserinus bursitis of left knee Pes anserine bursitis Degenerative joint disease (DJD) of lumbar spine Cervical spondylosis Thoracic spondylosis HTN (hypertension) IBS (irritable bowel syndrome) Hand numbness Fibromyalgia Seronegative rheumatoid arthritis Surgical History History of carpal tunnel release History of Hx of tubal ligation Hx of appendectomy H/O wisdom tooth extraction Family History Father HTN (hypertension) Prostate cancer Mother Meningitis Diabetes HTN (hypertension) Hyperlipidemia Son Asthma Sister Psoriasis Social History Household Members: None Housing: Apartment Alcohol intake: never Patient Tobacco Use Status: Never used Tobacco Physical Exam Vital signs reviewed Physical Examination CONSTITUITIONAL Patient alert and cooperative. Well appearing and in no apparent painful distress HEENT Conjunctiva and sclera clear. ?Pupils equal round and reactive to light. ?No lymphadenopathy. ? CHEST/RESPIRATORY SYSTEM Normal respiratory effort and able to speak in complete sentences. ?Clear to auscultation bilaterally. ?No crackles, rales, rhonchi, wheezes heard. CARDIAC SYSTEM Regular rate and rhythm. ?S1 and S2 heard no murmurs. ?Radial pulses intact bilaterally MSK Hands: ?Good lease administration supervisor strength bilaterally. No deformities noted. ?No synovitis noted to the MCPs, PIPs or DIPs. ?No tenderness to palpation of these joints. Wrists: ?Full range of motion at the wrists without pain. ?No tenderness to palpation or synovitis noted to the wrists. Elbows: Full range of motion without pain. No tenderness, weakness, swelling, increased warmth or erythema. Shoulders: Full range of motion without pain. No tenderness, weakness, swelling, increased warmth or erythema. Hips: Full range of motion without pain. Hip bursa: Bilateral tenderness to palpation Knees: ?Full range of motion. ?No tenderness, swelling, increased warmth or erythema.?No effusion or crepitations Ankles: Full range of motion. ?No tenderness, swelling, increased warmth or erythema.? Feet: ?Negative squeeze test. ?No tenderness to palpation or swelling of the MTPs. Tender points:?Tenderness to palpation of the bilateral trapezius, supraspinatus, pes anserine, lumbosacral, lateral malleoli SKIN Skin intact without rashes. Results Reviewed Results Reviewed: Laboratory Tests 11/10/22 01/30/23 06/30/23 14:28 14:29 15:35 WBC RBC Hgb Hct Plt Count ESR Sodium Potassium Chloride Carbon Dioxide BUN Creatinine AST ALT Alkaline Phosphatase C-Reactive Protein 0.52 H 0.95 H Total Protein Total Protein (PEP) Albumin Albumin (PEP) IgG Total IgA Total IgM Rheumatoid Factor < 13.0 Cycl Citrul Peptide IgG <16 Proteinase 3 (PR3) Ab Myeloperoxidase Ab Beta-2-GPI IgG Ab Beta-2-GPI IgA Ab Beta-2-GPI IgM Ab Anti-Cardiolipin IgG Ab Anti-Cardiolipin IgM Ab HLA-B27 Negative Hepatitis A IgM Ab Hep Bs Antigen Hep Bs Antibody Hep B Core Total Ab Hepatitis C Ab (EIA) TB Test (T-Spot) Com 03/26/24 14:28 WBC 5.3 RBC 4.36 Hgb 13.5 Hct 41.5 Plt Count 246 ESR 15 Sodium 141 Potassium 4.1 Chloride 108 Carbon Dioxide 30 H BUN 10 Creatinine 0.67 AST 19 ALT 14 Alkaline Phosphatase 69 C-Reactive Protein 0.76 H Total Protein 7.8 Total Protein (PEP) 7.6 Albumin 4.3 Albumin (PEP) 4.6 IgG Total 1231 IgA Total 373 H IgM 81 Rheumatoid Factor Cycl Citrul Peptide IgG Proteinase 3 (PR3) Ab <1.0 Myeloperoxidase Ab <1.0 Beta-2-GPI IgG Ab <2.0 Beta-2-GPI IgA Ab <2.0 Beta-2-GPI IgM Ab <2.0 Anti-Cardiolipin IgG Ab <2.0 Anti-Cardiolipin IgM Ab 2.0 HLA-B27 Hepatitis A IgM Ab Nonreactive Hep Bs Antigen Negative Hep Bs Antibody REACTIVE Hep B Core Total Ab Nonreactive Hepatitis C Ab (EIA) Nonreactive TB Test (T-Spot) Com Negative XR SI joints 03/2024 Findings No acute fractures. No significant degenerative change. No erosions. XR Whole spine 12/2021 FINDINGS (T-spine): Bone alignment is normal. No fracture or dislocation is seen. There is spondylosis and degenerative disc disease of the lower thoracic spine. Paraspinal soft tissues are normal. FINDINGS (L-spine): Bone alignment is normal. No fracture or dislocation is seen. There is mild disc space narrowing at L5-S1. There is lower lumbar spine facet arthritis. FINDINGS (C-spine): Bone alignment is normal. No acute fracture or dislocation. Degenerative spondylosis at C6-C7. Normal disc spaces. Normal prevertebral soft tissues. XR Bilateral knees 09/2021 FINDINGS (left knee): There is minimal loss of medial compartment joint space. No loose bodies, acute fracture, joint effusion or bony erosive changes. FINDINGS (right knee): There is no fracture, dislocation, destructive process, or suprapatellar effusion. Bony mineralization is normal. No periostitis. Hoffa's fat pad appears normal. There is no focal joint narrowing or erosive change or chondrocalcinosis. Assessment & Plan Assessment & Plan (1) Seronegative rheumatoid arthritis: Comment: Methotrexate-September 2018- May 2020 discontinued due to elevated LFTs Humira-August 2020-injection site reaction Enbrel-October 2020- April 2021- ? skin reaction Orencia-April 2021-present stopped; restarted 11/2022 DC 06/2023 due to psoriasis rash Simponi 06/2023 self DC 10/2023 due to finger numbness Code(s): M06.00 - Rheumatoid arthritis without rheumatoid factor, unspecified site Category: Medical Plan: #Seronegative RA Patient is a 48-year-old female that carries a diagnosis of seronegative rheumatoid arthritis. At this time I do not see any evidence of synovitis on examination which is unusual if this patient truly had rheumatoid arthritis then she should tender and swollen joints involving the MCPs and PIPs. She does have the classic tender points for fibromyalgia throughout the body. At this time I do not know how much of her current symptoms are related to an underlying autoimmune disorders such as RA or psoriatic arthritis and so I am going to give her a Medrol taper to see if this helps Plan - Medrol 4mg tablets: Take 4 tablets for 10 days then 3 tablets for 10 days then 2 tablets for 10 days then 1 tablet for 10 days - RTC 4 weeks - Labs prior to visit: CBC, CMP, CRP, ESR (2) Fibromyalgia: Code(s): M79.7 - Fibromyalgia Category: Medical Plan: #Fibromyalgia Patient definitely has a diagnosis of fibromyalgia as evidenced by her positive tender points on examination today. Discussed that there are limited treatment options for fibromyalgia. Patient states that she has tried gabapentin, pregabalin, amitriptyline and Flexeril in the past but is willing to try them again. Plan - Gabapentin 100mg daily Plan I spent 30 minutes reviewing the record and labs, taking a history, examining the patient, discussing the treatment plan and documenting in the medical record Orders: Orders C Reactive Protein 4 Weeks M06.00 - Rheumatoid arthritis without rheumatoid factor, unspecified site Erythrocyte Sedimentation Rate 4 Weeks M06.00 - Rheumatoid arthritis without rheumatoid factor, unspecified site Complete Blood Count Auto Diff 4 Weeks M06.00 - Rheumatoid arthritis without rheumatoid factor, unspecified site Comprehensive Met. Panel 4 Weeks M06.00 - Rheumatoid arthritis without rheumatoid factor, unspecified site Medications: New methylprednisolone 4 mg orally; Take 4 pills for 10 days, then 3 pills for 10 days, then 2 pills for 10 days then 1 pill for 10 days 100 tabs 0RF M06.00 - Rheumatoid arthritis without rheumatoid factor, unspecified site gabapentin 100 mg PO BEDTIME 90 caps 1RF M06.00 - Rheumatoid arthritis without rheumatoid factor, unspecified site, M79.7 - Fibromyalgia Coding Level of Care Code Est Pt Level 4 (23539) Complex EM visit Add On G2211 Diagnoses Seronegative rheumatoid arthritis M06.00 Fibromyalgia M79.7
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
--- OUTSIDE RECORDS SUMMARY | 2024-04-19 13:01 | XMS_ITS | Encounter Summary ---
Author Organization [facility] Address [address] [place] [address] Care Team Providers Care Guncotton Packer Name Role Phone Celestino Medrano Primary Care Provider [phone] Reason for Referral * Rheumatology (Routine) - Pending Review Specialty Diagnoses / Procedures Referred By Ranulfo rodríguez Referred To Contact Diagnoses Rheumatoid arthritis with positive rheumatoid factor, involving unspecified site ([facility]) Rheumatoid arthritis involving multiple sites with positive rheumatoid factor ([facility]) Celestino Medrano PA [address] [place] [address] Phone: tel: fax: [address] Phone: tel: fax: Referral ID Status Reason Start Date Expiration Date Visits Requested Visits Authorized [id number] Pending Review Specialty Services Required 04/18/2024 04/18/2025 1 1 Comments Pt called requesting to have a rheumatology referral faxed to [facility] at [address] [facility]. Pt states she has an appt tomorrow & was informed to contact PCP and request a referral. Encounter Details Date Type Department Care Team (Late st Contact Info) Description 04/18/2024 Interim Notes [id number] [place] [address] Celestino Medrano PA [address] [place] [address] Rheumatoid arthritis involving multiple sites with positive rheumatoid factor ([facility]) (Primary Dx); Rheumatoid arthritis with positive rheumatoid factor, involving unspecified site ([facility]) Social History Tobacco Use Types Packs/Day Years Used Date Smoking Tobacco: Never Smokeless Tobacco: Never Alcohol Use Standard Drinks/Week Comments [...] AM EST documented as of this encounter Plan of Treatment Scheduled Referrals Name Type Priority Associated Diagnoses Orde r Schedule REFERRAL TO RHEUMATOLOGY Referral Routine Rheumatoid arthritis with positive rheumatoid factor, involving unspecified site ([facility]) Rheumatoid arthritis involving multiple sites with positive rheumatoid factor ([facility]) Ordered: 04/18/2024 documented as of this encounter Visit Diagnoses Diagnosis Rheumatoid arthritis involving multiple sites with positive rheumatoid factor ([facility])- Primary Rheumatoid arthritis with positive rheumatoid factor, involving unspecified site ([facility]) documented in this encounter Additional Health Concerns Assessment Noted Time PHQ-9 Depression Total Score: 6 10/11/19 23 4:27 PM PDT documented as of this encounter Care Teams Guncotton Packer Relationship Specialty Start Date End Date Celestino Medrano PA [address] [place] [address] PCP - General Internal Medicine 04/06/16 documented as of this encounter
--- OUTSIDE RECORDS SUMMARY | 2024-04-19 13:01 | XMS_ITS | Encounter Summary ---
Author Organization [facility] Address [address] [place] [address] Care Team Providers Care Charge Entry Specialist Name Role Phone Celestino Medrano Primary Care Provider [phone] Encounter Details Date Type Department Care Team (Latest Contact Info) Description 04/10/2024 Travel Social History Tobacco Use Types Packs/Day Years [...] as of this encounter Plan of Treatment Not on file documented as of this encounter Visit Diagnoses Not on filedocumented in this encounter Additional Health Concerns Assessment Noted Time PHQ-9 Depression Total Score: 6 10/11/19 23 4:27 PM PDT documented as of this encounter Care Teams Charge Entry Specialist Relationship Specialty Start Date End Date Celestino Medrano PA [address] [place] [address] PCP - General Internal Medicine 04/06/16 documented as of this encounter
[2024-04-19 13:06] VITALS: BP 102/64; PULSE 72; O2SAT 96; BMI 28.3
== END 2024-04-19 13:48 | disposition home or self-care (01) ==
PROVIDERS: PCP Physician Assistant; Visit Provider Student in an Organized Health Care Education/Training Program
DX: M06.00 Rheumatoid arthritis without rheumatoid factor, unspecified site (principal); M79.7 Fibromyalgia
CPT/HCPCS: 99214

== ENCOUNTER → 2024-04-19 12:47 | Outpatient (BNVA) | payer MEDICAID, SELFPAY | PROVIDERS: PCP Physician Assistant; Visit Provider Student in an Organized Health Care Education/Training Program | DX: M06.00 Rheumatoid arthritis without rheumatoid factor, unspecified site (principal); M79.7 Fibromyalgia | CPT/HCPCS: 99212 ==

== ENCOUNTER 2024-06-13 13:55 | Outpatient (REF) | payer MEDICAID, SELFPAY ==
[2024-06-13 14:07] LABS: MANUAL DIFF FLAG NO
[2024-06-13 14:15] LABS: Basophils Percent Auto 0.4 % (0-2); Eosinophils Absolute Auto 0.1 X10*3/uL (0.0-0.4); Eosinophils Percent Auto 1.5 % (0-4); Hematocrit 37.7 % (37.0-47.0); Hemoglobin 12.7 g/dl (12.0-16.0); Imm Gran Abs Auto 0.05 X10*3/uL (0.00-0.03); Imm Gran Pct Auto 0.7 % (0.0-0.4); Lymphocytes Absolute Auto 1.5 X10*3/uL (1.2-4.9); Lymphocytes Percent Auto 20.9 % (20-40); Mean Corpuscular HGB Conc 33.7 g/dl (31.0-35.0); Mean Corpuscular Hemoglobin 32.1 pg (27.0-33.0); Mean Corpuscular Volume 95.2 fL (80.0-98.0); Mean Platelet Volume 10.1 fL (9.4-12.3); Monocytes Absolute Auto 0.4 X10*3/uL (0.1-1.2); Neutrophils Absolute Auto 5.2 x10*3/uL (2.0-8.3); Neutrophils Percent Auto 71.5 % (45-73); Platelet Count 220 X10*3/uL (160-400); Red Blood Count 3.96 X10*6/uL (4.20-5.50); White Blood Count 7.3 X10*3/uL (4.8-10.8)
[2024-06-13 14:43] LABS: Alanine Aminotransferase 16 U/L (0-31); Albumin Level 4.1 g/dL (3.5-5.0); Alkaline Phosphatase 66 U/L (39-117); Anion Gap 11 (12-20); Aspartate Amino Transferase 19 U/L (5-31); Bilirubin Total 0.2 mg/dL (0.0-1.0); Blood Urea Nitrogen 13 mg/dL (9-16); C Reactive Protein 0.73 mg/dL (< or = 0.50); Carbon Dioxide 29 mmol/L (22-29); Chloride 107 mmol/L (96-108); Estimated Glomerular Filt Rate > 60; Glucose Random 92 mg/dL (60-115); Potassium 4.3 mmol/L (3.3-5.1); Sodium 143 mmol/L (135-145); Total Protein 7.5 g/dL (6.5-8.0)
[2024-06-13 14:57] LABS: Erythrocyte Sedimentation Rate 23 MM/HR (0-20)
== END 2024-06-13 13:56 | disposition home or self-care (01) ==
LOC: HO.LAB 13:55
PROVIDERS: Student in an Organized Health Care Education/Training Program; PCP Physician Assistant; Visit Provider Nurse Practitioner Family
DX: M06.00 Rheumatoid arthritis without rheumatoid factor, unspecified site (principal)
CPT/HCPCS: 36415; 80053; 85025; 85652; 86140

== ENCOUNTER 2024-06-19 15:11 | Outpatient (AMB) | payer MEDICAID, SELFPAY ==
[2024-06-19 15:17] VITALS: BP 124/68; PULSE 82; O2SAT 98; BMI 28.7
--- NOTE | 2024-06-19 15:17 | A.OFFVIS_ITS ---
Vital Signs 06/19/24 15:17 Height 5 ft 2 in Weight 157 lb BMI 28.7 BP 124/68 Blood Pressure Location Lt brachial Position Sitting Pulse 82 Pulse Source Pulse Oximeter Pulse Oximetry (%) 98 Oxygen Delivery Method Room Air Intake Visit Reasons: follow up Intake Note: Patient last seen by Doctor Jo Almeida on 03/22/24. Presents today for RA follow up and test results. Allergies tramadol [Ultram] Allergy (Unknown, Verified 06/19/24 15:21) nausea and vomiting adalimumab [From Humira(CF)] Allergy (Verified 06/19/24 15:21) injection site reaction etanercept [From Enbrel] Allergy (Verified 06/19/24 15:21) Rash CT scan dye Allergy (Intermediate, Uncoded 06/19/24 15:21) trouble breathing From ULTRAM Allergy (Intermediate, Uncoded 06/19/24 15:21) N/V/DIZZINESS Medication List - Last Reconciled 06/19/24 by Jo Almeida MD albuterol sulfate 90 mcg/actuation 2 puffs inhalation Q6H PRN [id number] 50-325-40 mg 1 tab PO Q8H PRN citalopram 20 mg PO DAILY clobetasol 0.05% 1 appl topical BID 2 weeks dicyclomine 10 mg PO QID esomeprazole magnesium 20 mg PO DAILY fluticasone propionate 50 mcg/actuation 1 spray intranasal BID fluticasone propionate 44 mcg/actuation (Flovent HFA) 1 puff inhalation BID gabapentin 100 mg PO BEDTIME loratadine 10 mg PO DAILY PRN lorazepam 1 mg PO BID PRN pravastatin 40 mg PO DAILY propranolol ER 120 mg PO DAILY simethicone (Gas Relief (simethicone)) 250 mg PO BID PRN valacyclovir 1,000 mg PO BID PRN HPI Comments Details: Patient is a 48-year-old female with depression, hyperlipidemia, hypertension, guttate psoriasis who is here today for follow up Interval History: Patient was last seen 04/19/24 with me. At that time there was no evidence of synovitis on examination however continued to have widespread pain. She was given a Medrol taper. Today, Did not find any improvement from the Medrol taper Continues to have widespread pain involving her back, upper arms, legs Rheumatologic History: Patient was 1st diagnosed with seronegative arthritis around 2019 based on elevated inflammatory markers and clinical symptoms an ultrasound of hand showing tenosynovitis in the extensor compartments Methotrexate-September 2018- May 2020 discontinued due to elevated LFTs Humira-August 2020-injection site reaction Enbrel-October 2020- April 2021- ? skin reaction Orencia-April 2021-present stopped; restarted 11/2022 DC 06/2023 due to psoriasis rash Simponi 06/2023 self DC 10/2023 due to finger numbness Immunosuppression stopped 10/2023 because of concern for there not being any evidence of synovitis Current Rheumatology Medication(s): [facility] Medical History (Updated 06/19/24 @ 15:38 by Jo Almeida MD) Umbilical hernia Trochanteric bursitis, right hip Guttate psoriasis Trochanteric bursitis, left hip Pes anserinus bursitis of left knee Pes anserine bursitis Degenerative joint disease (DJD) of lumbar spine Cervical spondylosis Thoracic spondylosis HTN (hypertension) IBS (irritable bowel syndrome) Hand numbness Fibromyalgia Seronegative rheumatoid arthritis Surgical History History of carpal tunnel release History of Hx of tubal ligation Hx of appendectomy H/O wisdom tooth extraction Family History Father HTN (hypertension) Prostate cancer Mother Meningitis Diabetes HTN (hypertension) Hyperlipidemia Son Asthma Sister Psoriasis Social History Household Members: None Housing: Apartment Alcohol intake: never Patient Tobacco Use Status: Never used Tobacco Review of Systems Const Details: Review of Systems Constitutional: Denies fever, chills, weight loss ENT: Denies vision changes, eye pain or eye redness, dental caries, dry mouth GI: Denies nausea, vomiting, diarrhea, abdominal pain, change in BM Pulm: Denies SOB, SHAH, hemoptysis, wheezing Cards: Denies chest pain, palpitations Skin: Denies Raynaud's, rash, nail changes, photosensitivity, P[employer]IC [employer]ER: Denies headaches, weakness, paresthesias, recurrent falls MSK: as per HPI All other systems reviewed and are unremarkable except noted above Physical Exam Vital Signs: Last Vital Signs Pulse 82 04/02/25 15:17 BP 124/68 06/19/24 15:17 Pulse Ox 98 06/19/24 15:17 Oxygen Delivery Method Room Air 06/19/24 15:17 BMI result Body Mass Index 28.7 Vital signs reviewed Physical Examination CONSTITUITIONAL Patient alert and cooperative. Well appearing and in no apparent painful distress HEENT Conjunctiva and sclera clear. ?Pupils equal round and reactive to light. ?No lymphadenopathy. ? CHEST/RESPIRATORY SYSTEM Normal respiratory effort and able to speak in complete sentences. ?Clear to auscultation bilaterally. ?No crackles, rales, rhonchi, wheezes heard. CARDIAC SYSTEM Regular rate and rhythm. ?S1 and S2 heard no murmurs. 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 No deformities noted. ?No synovitis noted to the MCPs, PIPs or DIPs. ?No tenderness to palpation of these joints. Wrists: ?Full range of motion at the wrists without pain. ?No tenderness to palpation or synovitis noted to the wrists. Positive Jon's test bilaterally Elbows: Full range of motion without pain. No tenderness, weakness, swelling, increased warmth or erythema. Shoulders: Full range of motion without pain. No tenderness, weakness, swelling, increased warmth or erythema. Hips: Full range of motion without pain. Hip bursa: Bilateral tenderness to palpation Knees: ?Full range of motion. ?No tenderness, swelling, increased warmth or erythema.?No effusion or crepitations Ankles: Full range of motion. ?No tenderness, swelling, increased warmth or erythema.? Feet: ?Negative squeeze test. ?No tenderness to palpation or swelling of the MTPs. Tender points:?Tenderness to palpation of the bilateral trapezius, supraspinatus, pes anserine, lumbosacral, lateral malleoli SKIN Skin intact without rashes. Results Reviewed Results Reviewed: Laboratory Tests 03/26/24 06/13/24 14:28 14:05 WBC 7.3 RBC 3.96 L Hgb 12.7 Hct 37.7 Plt Count 220 ESR 23 H Sodium 143 Potassium 4.3 Chloride 107 Carbon Dioxide 29 BUN 13 Creatinine 0.66 AST 19 ALT 16 Alkaline Phosphatase 66 C-Reactive Protein 0.76 H 0.73 H Immunology labs 11/10/22 01/30/23 14:28 14:29 Rheumatoid Factor < 13.0 Cycl Citrul Peptide IgG <16 HLA-B27 Negative XR SI Joint 03/2024 Findings No acute fractures. No significant degenerative change. No erosions. IMPRESSION: No acute findings XR T Spine 12/2021 FINDINGS: Bone alignment is normal. No fracture or dislocation is seen. There is spondylosis and degenerative disc disease of the lower thoracic spine. Paraspinal soft tissues are normal. IMPRESSION: Degenerative changes. XR L Spine 12/2021 FINDINGS: Bone alignment is normal. No fracture or dislocation is seen. There is mild disc space narrowing at L5-S1. There is lower lumbar spine facet arthritis. IMPRESSION: No fracture or dislocation. Mild degenerative changes. XR C spine 12/2021 FINDINGS: Bone alignment is normal. No acute fracture or dislocation. Degenerative spondylosis at C6-C7. Normal disc spaces. Normal prevertebral soft tissues. IMPRESSION: Degenerative spondylosis at C6-C7. Assessment & Plan Assessment & Plan (1) Fibromyalgia: Code(s): M79.7 - Fibromyalgia Category: Medical Plan: #Fibromyalgia Patient is a 49-year-old female with widespread whole-body pain here today for follow up. Her exam is consistent with fibromyalgia. She did not respond to Medrol. I really do think that this patient has a fibromyalgia and does not have seronegative rheumatoid arthritis. Note is made of her elevated inflammatory markers but these have consistently been elevated despite being on treatment in the past. She does have tendonitis especially involving her bilateral flexor tendons for which she has even had surgery on the right 4. There is note of an ultrasound in the past that showed tenosynovitis but this could again be related to her flexor tenosynovitis. We will continue to monitor her off immunosuppressive medication and start treatment gear towards her fibromyalgia. Says that gabapentin makes her very sleepy so we will change that to pregabalin, add amitriptyline and Flexeril. Plan - Start pregabalin 25mg at night - Start amitriptyline 10 mg at night - Start cyclobenzaprine 5 mg at night - Pain management referral for degenerative disc disease of the spine - RTC 3 months Plan I spent 32 minutes reviewing the record and labs, taking a history, examining the patient, discussing the treatment plan, ordering diagnostic work up and documenting in the medical record Orders: Referrals Pain Management Referral M47.812 - Spondylosis without myelopathy or radiculopathy, cervical region, M47.816 - Spondylosis without myelopathy or radiculopathy, lumbar region Medications: New amitriptyline 10 mg PO BEDTIME 90 tabs 1RF M79.7 - Fibromyalgia pregabalin 25 mg PO BEDTIME 90 caps 1RF M79.7 - Fibromyalgia cyclobenzaprine 5 mg PO BEDTIME 90 tabs 1RF M79.7 - Fibromyalgia Discontinued gabapentin Discontinued Reason: Doctor's Order 100 mg PO BEDTIME 90 caps 1RF M06.00 - Rheumatoid arthritis without rheumatoid factor, unspecified site, M79.7 - Fibromyalgia Coding Level of Care Code Est Pt Level 4 (67290) Complex EM visit Add On G2211 Diagnoses Fibromyalgia M79.7
--- OUTSIDE RECORDS SUMMARY | 2024-06-19 17:37 | XMS_ITS | Data Portability ---
Author Organization [facility]ig PAIN OFFICE Address [address] [facility] [address] [place] [address] Care Team Providers Care Mold Car Pusher Name Role Phone KIARA POLANCO Primary Care Provider [phone] Assessment Encounter Date Assessment Date Assessment LastModified by Organization Details LastModified Time 05/01/2017 05/01/2017 Bri Holley is a 41 year old woman with neck pain radiating into left upper back. She has myofascial pain syndrome in her left upper back. Trigger points were palpated with reproduction of her pain in the left trapezius muscle . Trial of trigger point injections under ultrasound guidance were discussed with her. The risks and benefits of the procedure were discussed and she wishes to proceed and an appointment has been made for the same. [email or web address] Not available 05/10/2017 13:04:06 05/10/2017 05/10/2017 Bri Holley is a 41 year old woman with neck pain radiating into left upper back. She has myofascial pain syndrome in her left upper back. Trigger points were palpated with reproduction of her pain in the left trapezius muscle . She is here for a trial of trigger point injections under ultrasound guidance . The risks and benefits of the procedure were discussed and she wishes to proceed . She will follow up in one week for a repeat injection if needed. [email or web address] Not available 05/10/2017 14:05:45 05/18/2017 05/18/2017 Bri Holley is a 41 year old woman with neck pain radiating into left upper back. She has myofascial pain syndrome in her left upper back. Trigger points were palpated with reproduction of her pain in the left trapezius muscle . She is here for a repeat trigger point injections under ultrasound guidance . The risks and benefits of the procedure were discussed and she wishes to proceed . She has complaints of low back pain radiating into left lower extremity. On exam, She has pain with flexion and straight leg raising test is positive on the left. She had a course of physical therapy with no pain benefit. She is doing a home exercise program with persistent pain.MRI Lumbar spine shows mild broad based posterior disc bulge with a superimposed central disc protrusion at L4-5 level with ventral thecal sac mild indentation. I recommend a repeat lumbar epidural steroid injection under fluoroscopic guidance . The risks and benefits of the procedure were reviewed in detail. She wishes to proceed. An appointment has been booked. 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 [email or web address] Not available 05/18/2017 14:23:03 06/06/2017 06/06/2017 Bri Holley is a 42 year old woman with complaints of low back pain radiating into left lower extremity.She has been having an exacerbation of pain for the past six months. On exam, She has pain with flexion and straight leg raising test is positive on the left. She had a course of physical therapy with no pain benefit. She is doing a home exercise program with persistent pain.MRI Lumbar spine shows mild broad based posterior disc bulge with a superimposed central disc protrusion at L4-5 level with ventral thecal sac mild indentation. She is here for a repeat lumbar epidural steroid injection under fluoroscopic guidance . The risks and benefits of the procedure were reviewed in detail. She wishes to proceed. She will follow up in four weeks. [email or web address] Not available 06/06/2017 11:17:18 08/02/2017 08/02/2017 Bri Holley is a 42 year old woman with neck pain radiating into left upper back. She has myofascial pain syndrome in her left upper back. Trigger points were palpated with reproduction of her pain in the left trapezius muscle . She is here for a repeat trigger point injections under ultrasound guidance . The risks and benefits of the procedure were discussed and she wishes to proceed . She will follow up as needed. [email or web address] Not available 08/03/2017 15:39:25 Plan of Treatment Reminders Order Date Submit Date Provider Last Modified By Organization Details Last Modified Time Details Appointments None record ed. Lab None record ed. Referral None record ed. Procedures None record ed. Surgeries None record ed. Imaging None record ed. Medication Orders None record ed. Patient TargetsNo targets recorded. Patient Instructions Encounter Date Encounter Id Patient Instructions Last Modified By Organization Details Last Modified Time 05/01/2017 [id number] She was advised against bed rest lasting longer than four days and to continue activities as tolerated. [email or web address] Not available 05/10/2017 12:11:48 05/10/2017 [id number] She was advised against bed rest lasting longer than four days and to continue activities as tolerated. [email or web address] Not available 05/10/2017 14:05:05 05/18/2017 [id number] She was advised against bed rest lasting longer than four days and to continue activities as tolerated. [email or web address] Not available 05/18/2017 14:21:07 06/06/2017 [id number] She was advised against bed rest lasting longer than four days and to continue activities as tolerated. [email or web address] Not available 06/06/2017 11:12:34 08/02/2017 [id number] She was advised against bed rest lasting longer than four days and to continue activities as tolerated. [email or web address] Not available 08/03/2017 15:37:37 Reason for Referral None Reported. Problems Name Problem SNOMED Code Status Onset Date Resolution Date Notes Provider Name and Address Organization Details Recorded Time Lumbosacral radiculitis 09563368 Active 2016 Kentrell taylor MD [address] , [address], [place], [address], [place] [facility] 7 11:28:43 Displacement of lumbar intervertebral disc without myelopathy 08418898 Active 2016 Kentrell taylor MD [address] , [address], [place], [address], [place] [facility] 7 11:28:44 Muscle pain 02768800 Active 2016 Kentrell taylor MD [address] , [address], [place], [address], [place] [facility] 7 11:28:45 Postherpetic neuralgia 7506154 Active 2016 Kentrell taylor MD [address] , [address], [place], [address], [place] [facility] 7 11:28:46 Problem Notes None recorded. Procedures Surgical History Date Name Laterality Status Provider Name and Address Organization Details Recorded Time 08/03/19 18 Trigger Point Injections under ultrasound guidance completed Kentrell Reddy MD [address] [facility] , [address], [place], [address], [place] [facility] 08/03/2017 15:37:49 06/07/19 18 Lumbar Epidural steroid injection under fluoroscopic guidance completed Kent[facility] Red[facility] [address] [facility] [address], [place], [address], [place] [facility] 06/06/2017 11:16:19 05/19/19 18 Trigger Point Injections under ultrasound guidance completed Kentrell Reddy MD [address] [facility] , [address], [place], [address], [place] [facility] 05/18/2017 14:21:11 05/10/19 18 Trigger Point Injections under ultrasound guidance completed Kentrell Reddy MD [address] [facility] , [address], [place], [address], [place] [facility] 05/10/2017 14:04:18 03/28/19 18 Lumbar Epidural steroid injection under fluoroscopic guidance completed Kentrell Reddy MD [address] [facility] , [address], [place], [address], [place] [facility] 03/30/2017 09:10:05 Other completed Amanda Jones [place] [facility] 11/03/2016 11:36:05 Caesarean Section completed Amanda Jones [place] [facility] 11/03/2016 11:34:12 Appendectomy completed Amanda Jones [place] [facility] 11/03/2016 11:34:17 Carpal tunnel release completed Amanda Jones [place] [facility] 11/03/2016 11:34:33 Colonoscopy completed Amanda Jones [place] [facility] 11/03/2016 11:34:46 Hysterectomy completed Amanda Jones [place] [facility] 11/03/2016 11:35:03 Other completed Amanda Jones [place] [facility] 11/03/2016 11:35:17 Other completed Amanda Jones [place] [facility] 11/03/2016 11:39:19 Imaging Results None recorded. Procedure Notes None recorded. Medical Equipment None Reported. Allergies Allergen ID Allergen Name Allergen Category Reaction Reaction Severity Criticality Documentation Date Start Date Code Code System Note Provider Name and Address Organization Details Recorded Time 69202 Ultram medicatio n nausea vomiting Not available Not available Not available 11/03/2016 73872 6 RxNorm Amanda Albertoguerline talbot [place] [facility] 7 11:30:47 Medications Name Sig Start Date Stop Date Status Note LastModified by Organization Details LastModified Time clindamycin HCl 300 mg capsule TK 2 CS PO TO START THEN 1 C Q 6 H TAT active Not Available Not Available No t Available tizanidine 4 mg tablet TK 1 T PO Q 8 H 11/10 completed Not Available Not Available Not Available valacyclovi r 1 gram tablet TK 1 T PO BID FOR 10 DAYS 08/02 completed Not Available Not Available Not Available senna 8.6 mg tablet TK 1 TO 2 TS PO IN THE MORNING IF CONSTIPAT ION NOT RELIEVED BY BEDTIME MIRALAX ONCE A DAY active Not Available Not Available No t Available ondansetron HCl 4 mg tablet TK 1 TO 2 TS PO BID PRF NAUSEA FOR 30 DAYS 11/10 completed Not Available Not Available Not Available gabapentin 400 mg capsule TK 1 C PO TID 05/01 completed Not Available Not Available Not Available prednisone 5 mg tablet 11/10 completed Not Available Not Available Not Available valacyclovi r 500 mg tablet TK 1 T PO BID FOR 3 DAYS. 08/02 completed Not Available Not Available Not Available Tamiflu 75 mg capsule TK 1 C PO QD FOR 5 DAYS 05/10 completed Not Available Not Available Not Available SF 1.1 % dental gel active Not Available Not Available N ot Available amitriptyli ne 50 mg tablet TK 2 TS PO ONCE DAILY HS. active Not Available Not Available No t Available butalbital- acetaminoph en-caffeine 50 mg-325 mg-40 mg tablet TK 1 T PO Q 8 H PRN active Not Available Not Available No t Available oxycodone-a cetaminophe n 5 mg-325 mg tablet TK 1 T PO Q 6 H PRF PAIN 11/10 completed Not Available Not Available Not Available citalopram 20 mg tablet TK 1 T PO QAM active Not Available Not Available No t Available amitriptyli ne 25 mg tablet TK 1 T PO HS 05/01 completed Not Available Not Available Not Available tamsulosin 0.4 mg capsule TK 1 C PO QD 11/10 completed Not Available Not Available Not Available lorazepam 2 mg tablet TK 1 T PO 2 H BEFORE MRI. MAY REPEAT IF NECESSARY ONCE A DAY FOR 1 DOSE 11/10 completed Not Available Not Available Not Available baclofen 10 mg tablet TK 1 T PO QD active Not Available Not Available No t Available pantoprazol e 40 mg tablet,zack yed release TK 1 T PO QD. SWALLOW WHOLE. DO NOT CRUSH OR CHEW active Not Available Not Available No t Available naproxen sodium 550 mg tablet TK 1 T PO BID FOR 5 DAYS THEN PRN P 12/29 completed Not Available Not Available Not Available Vitamin B-12 250 mcg tablet TK 1 T PO D active Not Available Not Available No t Available clotrimazol e-betametha sone 1 %-0.05 % topical cream IZZY TOPICALLY AA BID PRN active Not Available Not Available No t Available lidocaine 5 % topical patch IZZY 1 PA EXT TO THE SKIN Q DAY. MAY WEAR UP TO 12 H active Not Available Not Available No t Available gabapentin 300 mg capsule TK 1 C PO TID 11/10 completed Not Available Not Available Not Available chlordiazep oxide 10 mg capsule TK 1 C PO QHS 12/29 completed Not Available Not Available Not Available hydroxyzine HCl 25 mg tablet TK 1 T PO TID PRF ITCHING active Not Available Not Available No t Available pravastatin 20 mg tablet TK 1 T PO QD active Not Available Not Available No t Available propranolol ER 120 mg capsule,24 hr,extended release TK 1 C PO D active Not Available Not Available No t Available lorazepam 1 mg tablet TK 1 T PO BID PRF ANXIETY active Not Available Not Available No t Available polyethylen e glycol 3350 17 gram/dose oral powder DISSOLVE 17 GRAMS IN 8 OUNCES OF WATER AND TK PO D active Not Available Not Available No t Available ondansetron 4 mg disintegrat ing tablet DIS 1 T UNT Q 8 H 11/10 completed Not Available Not Available Not Available fluticasone propionate 50 mcg/actuati on nasal spray,suspe nsion SHAKE LQ AND U 1 SPR IEN QD active Not Available Not Available No t Available dicyclomine 10 mg capsule TK 1 C PO QID B MEALS AND ATN 05/10 completed Not Available Not Available Not Available loratadine 10 mg tablet TK 1 T PO D PRF ALLERGIES active Not Available Not Available No t Available amoxicillin 875 mg-potjamesiu m clavulanate 125 mg tablet TK 1 T PO BID FOR 10 DAYS 11/03 completed Not Available Not Available Not Available Gas Relief (simethicon e) 125 mg chewable tablet 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 1 T PO D PRF GAS active Not Available Not Available No t Available Flovent HFA 110 mcg/actuati on aerosol inhaler INL 1 PUFF PO INTO LUNGS BID active Not Available Not Available No t Available Lyrica 150 mg capsule TK ONE C PO BID 11/10 completed Not Available Not Available Not Available ProAir HFA 90 mcg/actuati on aerosol inhaler INL 2 PUFFS PO INTO THE LUNGS Q 4 H PRF COUGH OR WHEEZING active Not Available Not Available No t Available Senna with Docusate Sodium 8.6 mg-50 mg tablet TK 1 T PO D PRF CONSTIPAT ION active Not Available Not Available No t Available Dexilant 60 mg capsule, delayed release TK ONE C PO D AT SUPPERTIM E 05/01 completed Not Available Not Available Not Available Suprep Bowel Prep Kit 17.5 gram-3.13 gram-1.6 gram oral solution MIX AND DRINK PO UTD 11/10 completed Not Available Not Available Not Available Vitamin D3 50 mcg (2,000 unit) capsule TK 1 C PO D active Not Available Not Available No t Available Vitals Date Recorded Body height Heart rate Oxygen saturation Oxygen saturation in Arterial blood by Pulse oximetry Systolic blood pressure Diastolic blood pressure Provider Name and Address Organization Details Last Updated DateTime 8 157.48 cm 72 /min 98 % 98 % 117 mm[Hg] 81 mm[Hg] Amanda [facility] 8 10:32:15 Date Recorded Body height Body mass index (BMI) Body weight Heart rate Oxygen saturation Oxygen saturation in Arterial blood by Pulse oximetry Systolic blood pressure Diastolic blood pressure Provider Name and Address Organization Details Last Updated DateTime 8 157.48 cm 29.8 kg/m2 95170.5 6 g 76 /min 98 % 98 % 139 mm[Hg] 86 mm[Hg] Amanda [facility] 8 13:31:16 Date Recorded Pain severity - 0-10 verbal numeric rating [Score] - Reported Provider Name and Address Organization Details Last Updated DateTime 05/01/2017 10 Not Available [facility] 8 05:02:17 Date Recorded Body height Heart rate Oxygen saturation Oxygen saturation in Arterial blood by Pulse oximetry Systolic blood pressure Diastolic blood pressure Provider Name and Address Organization Details Last Updated DateTime 8 157.48 cm 78 /min 98 % 98 % 137 mm[Hg] 86 mm[Hg] Amanda Jones [place] [facility] 8 13:09:59 Date Recorded Body height Heart rate Oxygen saturation Oxygen saturation in Arterial blood by Pulse oximetry Systolic blood pressure Diastolic blood pressure Provider Name and Address Organization Details Last Updated DateTime 8 157.48 cm 74 /min 98 % 98 % 134 mm[Hg] 94 mm[Hg] Amanda Jones [place] [facility] 8 13:32:06 Date Recorded Body height Heart rate Oxygen saturation Oxygen saturation in Arterial blood by Pulse oximetry Systolic blood pressure Diastolic blood pressure Provider Name and Address Organization Details Last Updated DateTime 8 157.48 cm 72 /min 99 % 99 % 132 mm[Hg] 72 mm[Hg] Amanda Jones [place] [facility] 8 10:50:15 Social History Question Answer Notes LastModified by Organizat ion Details LastModified Time Tobacco Smoking Status Never Smoker Not Available [facility] 01/03/2020 03:16:10 What Is Your Level Of Alcohol Consumption? None [id number] Information not available 01/03/2020 Are You Currently Employed? No Disability [id number] Information not available 01/03/2020 Which Illicit Or Recreational Drugs Have You Used? NO [id number] Information not available 01/03/2020 Education 12 Information no t available 11/03/2016 Live Alone Or With Others? Alone Information not available 11/03/2016 Marital Status Informatio n not available 11/03/2016 What Was The Date Of Your Most Recent Tobacco Screening? 08/03/2017 [id number] Information not available 01/03/2020 Sex: Unknown Functional Status None recorded. Mental Status None recorded. Family History Relationship Description Onset Age of this Age Resolved Age Notes LastModified by Organization Details LastModified Time Father Malignant neoplastic disease [email or web address] Not available 2016 11:31:40 Father Hypertensive disorder [email or web address] Not available 2016 11:32:21 Sister Disease of liver [email or web address] Not available 2016 11:31:54 Mother Diabetes mellitus [email or web address] Not available 2016 11:32:05 Medical History Condition Response Anxiety Disorder Y Headache Y Arthritis Y Kidney Stones Y GERD/Reflux Y Fibromyalgia Y Irritable Bowel Syndrome Y Depression Y Asthma Y Gynecological HistoryNo gynecological history recorded. Obstetrics History GPAL:G 0 P 0 0 0 0 Past Encounters Encounter ID Performer Location Encounter Start Date Encounter Closed Date Diagnosis/Indication Diagnosis SNOMED-CT Code Diagnosis ICD10 Code Diagnosis Note [id number] Kentrell Reddy MD PAIN OFFICE [address] [place] [address] 11/03/2016 11:26:52 11/09/2016 08:25:54 Lumbosacral radiculitis 05299423 M54.17 Displaceme nt of lumbar intervertebral disc without myelopathy 35453792 M51.26 Muscle pain 93398841 M79 .1 Postherpet ic neuralgia 5629770 B02.29 [id number] Kentrell Reddy MD PAIN OFFICE [address] [place] [address] 12/29/2016 11:38:37 01/02/2017 11:24:30 Lumbosacral radiculitis 96889463 M54.17 Displaceme nt of lumbar intervertebral disc without myelopathy 63289847 M51.26 Muscle pain 73624697 M79 .1 Postherpet ic neuralgia 0353892 B02.29 [id number] Kentrell Reddy MD PAIN OFFICE [address] [place] [address] 03/28/2017 13:06:19 03/30/2017 09:14:15 Lumbosacral radiculitis 83980498 M54.17 Displaceme nt of lumbar intervertebral disc without myelopathy 83978676 M51.26 Muscle pain 03266346 M79 .1 Postherpet ic neuralgia 1615794 B02.29 [id number] Kentrell Reddy MD PAIN OFFICE [address] [place] [address] 05/01/2017 13:14:47 05/10/2017 13:04:40 Muscle pain 58331575 M79.1 [id number] Kentrell Reddy MD [facility] [address] [place] [address] 05/10/2017 12:59:42 05/10/2017 14:30:54 Muscle pain 40264241 M79.1 Postherpet ic neuralgia 9446080 B02.29 Lumbosacra l radiculitis 76367630 M54.17 Displaceme nt of lumbar intervertebral disc without myelopathy 82254633 M51.26 [id number] Kentrell Reddy MD PAIN OFFICE [address] [place] [address] 05/18/2017 13:07:34 05/18/2017 14:43:57 Muscle pain 36115271 M79.1 Postherpet ic neuralgia 4936339 B02.29 Lumbosacra l radiculitis 66949714 M54.17 Displaceme nt of lumbar intervertebral disc without myelopathy 98142999 M51.26 [id number] Kentrell Reddy MD PAIN OFFICE [address] [place] [address] 06/06/2017 10:42:25 06/06/2017 11:19:46 Lumbosacral radiculitis 99637814 M54.17 Displaceme nt of lumbar intervertebral disc without myelopathy 59158778 M51.26 Muscle pain 08027911 M79 .1 Postherpet ic neuralgia 3637712 B02.29 [id number] Kentrell Reddy MD [facility] [address] [place] [address] 08/02/2017 09:51:10 08/03/2017 15:41:32 Muscle pain 38615441 M79.1 Postherpet ic neuralgia 9170604 B02.29 Lumbosacra l radiculitis 93692138 M54.17 Displaceme nt of lumbar intervertebral disc without myelopathy 48922981 M51.26 Health Concerns Section Related Observation LastModified by Organization Detai ls LastModified Time None Recorded Concern Status LastModified by Organization Details LastModified Time None Recorded Advance Directives Directive None Recorded Payers Encounter Date Sequence Insurance Name Policy Number Policy Jimenes Covered Member ID Jimenes Member ID Guarantor Name 05/01/2017 2 [place] Drema Kishan [id number] Drema Kishan 05/10/2017 2 [place] Drema Kishan [id number] Drema Kishan 05/18/2017 2 [place] Drema Kishan [id number] Drema Kishan 05/18/2017 1 [facility] (MEDICAID REPLACEMENT - HMO) [id number] Drema Kishan [id number] Drema Kishan 06/06/2017 2 [place] Drema Kishan [id number] Drema Kishan 06/06/2017 1 [facility] (MEDICAID REPLACEMENT - HMO) [id number] Drema Kishan [id number] Drema Kishan 08/02/2017 2 [place] Drema Kishan [id number] Drema Kishan 08/02/2017 1 [facility] (MEDICAID REPLACEMENT - HMO) [id number] Drema Kishan [id number] Drema Kishan Notes Date Note Type Note Provider Name and Address Organization Details Recorded Time 05/01/2017 text/html She is here for a follow up after a lumbar epidural steroid injection under fluoroscopic guidance. She reports 60% pain relief for 2 weeks with return of pain back to baseline. She is complaining of pain in her left upper back. Pain is aching in nature . She has no radiating pain in her upper extremities. She has no history of bladder or bowel incontinence. Kentrell Reddy MD [address] , [address], [place], [address], [place] [facility] 05/11/2017 15:55:31 05/10/2017 text/html She is here for a trial of trigger point injections in her left trapezius muscle under ultrasound guidance. Kentrell Reddy MD [address] , [address], [place], [address], [facility] - [facility] 05/11/2017 15:07:19 05/18/2017 text/html She is here for a repeat left trapezius muscle trigger point injection under ultrasound guidance. She is unsure of the pain benefit after last TPI. She states she has return of low back pain and feels walking and standing aggravates her pain. Kentrell Reddy MD [address] [facility] , [address], [place], [address], [facility] - [facility] Management 05/22/2017 10:59:44 06/06/2017 text/html She is here for a repeat lumbar epidural steroid injection under fluoroscopic guidance. Kentrell Reddy MD [address] [facility] , [address], [place], [address], [facility] - Pain Management 06/26/2017 10:17:32 08/02/2017 text/html She is here for a repeat trigger point injections in her left trapezius muscle under ultrasound guidance. Kentrell Reddy MD [address] [facility] , [address], [place], [address], [facility] - [facility] Management 08/08/2017 08:22:48 OBGyn Episode No OBEpisode recorded.
--- OUTSIDE RECORDS SUMMARY | 2024-06-19 17:37 | XMS_ITS | Encounter Summary ---
Author Organization [facility] Address [address] [place] [address] Care Team Providers Care Agency Director Name Role Phone Sarkis Carter MD Primary Care Provider Un available Community, Pcp [facility] MD Primary Care Provider Un available Encounter Details Date Type Department Care Team Description 12/14/2015 [facility] Report Medical Records [address] [place] [id number] Favian Alcantar MD Social History Tobacco Use Types Packs/Day Years Used Date Smoking Tobacco: Never Alcohol Use Standard Drinks/Week Comments No 0 (1 standard drink = 0.6 oz pur e alcohol) Sex Assigned at Date Recorded Not on file documented as of this encounter Plan of Treatment Not on file documented as of this encounter Visit Diagnoses Not on filedocumented in this encounter Care Teams Agency Director Relationship Specialty Start Date End Date Sarkis Carter MD PCP - General Internal Medicine 11/19/1502/28 [facility], Pcp PCP - General Internal Medicine 03/01/16 07/28/16 Sarkis Carter MD PCP - General Internal Medicine 07/29/16 documented as of this encounter
--- OUTSIDE RECORDS SUMMARY | 2024-06-19 17:37 | XMS_ITS | Encounter Summary ---
Author Organization [facility] Address [address] [place] [address] Care Team Providers Care Camp Housekeeper Name Role Phone Sarkis Carter MD Primary Care Provider Un available Community, Pcp Primary Care Provider [facility] Sarkis Carter MD Primary Care Provider Un available Encounter Details Date Type Department Care Team Description 01/18/2016 Child Welfare Assistant Report Medical Records [address] [place] [id number] Tayler Fang MD Social History Tobacco Use Types Packs/Day Years Used Date Smoking Tobacco: Never Alcohol Use Standard Drinks/Week Comments No 0 (1 standard drink = 0.6 oz pur e alcohol) Sex Assigned at Date Recorded Not on file documented as of this encounter Plan of Treatment Not on file documented as of this encounter Visit Diagnoses Not on filedocumented in this encounter Care Teams Camp Housekeeper Relationship Specialty Start Date End Date Sarkis Carter MD PCP - General Internal Medicine 11/19/1502/28 On License Of [facility], Pcp PCP - General Internal Medicine 03/01/16 07/28/16 Sarkis Carter MD PCP - General Internal Medicine 07/29/16 documented as of this encounter
--- OUTSIDE RECORDS SUMMARY | 2024-06-19 17:37 | XMS_ITS | Encounter Summary ---
Author Organization [facility] Address [address] [place] [address] Care Team Providers Care Technical Writer Name Role Phone Sarkis Carter MD Primary Care Provider Un available Community, Pcp Primary Care Provider Unavailabl e Sarkis Carter MD Primary Care Provider Un available Encounter Details Date Type Department Care Team Description 11/25/2015 [employer] Artistic Director Report Medical Records [address] [place] [address] Favian Alcantar MD Social History Tobacco Use [...] on filedocumented in this encounter Care Teams Technical Writer Relationship Specialty Start Date End Date Sarkis Carter MD PCP - General Internal Medicine 11/19/1502/28 [facility], Pcp PCP - General Internal Medicine 03/01/16 07/28/16 Sarkis Carter MD PCP - General Internal Medicine 07/29/16 documented as of this encounter
--- OUTSIDE RECORDS SUMMARY | 2024-06-19 17:37 | XMS_ITS | Encounter Summary ---
Author Organization [facility] Address [address] [place] [address] Care Team Providers Care Programming Specialist Name Role Phone Sarkis Carter MD Primary Care Provider Un available Community, Pcp Primary Care Provider [facility] Sarkis Carter MD Primary Care Provider Un available Encounter Details Date Type Department Care Team Description 11/20/2015 Transfer Records Medical Records [address] [place] [address] Abstract, Provider Social History Tobacco Use Types Packs/Day Years Used Date Smoking Tobacco: Never Alcohol Use Standard Drinks/Week Comments No 0 (1 standard drink = 0.6 oz pur e alcohol) Sex Assigned at Date Recorded Not on file documented as of this encounter Plan of Treatment Not on file documented as of this encounter Visit Diagnoses Not on filedocumented in this encounter Care Teams Programming Specialist Relationship Specialty Start Date End Date Sarkis Carter MD PCP - General Internal Medicine 11/19/1502/28 [facility], Pcp PCP - General Internal Medicine 03/01/16 07/28/16 Sarkis Carter MD PCP - General Internal Medicine 07/29/16 documented as of this encounter
--- OUTSIDE RECORDS SUMMARY | 2024-06-19 17:37 | XMS_ITS | Encounter Summary ---
Author Organization [facility] Address [address] [place] [address] Care Team Providers Care Gold Buyer Name Role Phone Sarkis Carter MD Primary Care Provider Un available Community, Pcp Primary Care Provider [facility] Sarkis Carter MD Primary Care Provider Un available Encounter Details Date Type Department Care Team Description 11/24/2015 Release of Information Medical Records [address] [place] [id number] Abstract, Provider Social History Tobacco Use Types [...] on filedocumented in this encounter Care Teams Gold Buyer Relationship Specialty Start Date End Date Sarkis Carter MD PCP - General Internal Medicine 11/19/1502/28 [facility], Pcp PCP - General Internal Medicine 03/01/16 07/28/16 Sarkis Carter MD PCP - General Internal Medicine 07/29/16 documented as of this encounter
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
--- OUTSIDE RECORDS SUMMARY | 2024-06-19 17:38 | XMS_ITS | Encounter Summary ---
Author Organization [facility] Address [address] [place] [address] Care Team Providers Care Cord Tire Builder Name Role Phone Sarkis Carter MD Primary Care Provider Un available Community, Pcp Primary Care Provider [facility] Sarkis Carter MD Primary Care Provider Un available Encounter Details Date Type Department Care Team Description 02/24/2016 [facility] Medical Records [address] [place] [address] Abstract, Provider Social History Tobacco Use Types [...] on filedocumented in this encounter Care Teams Cord Tire Builder Relationship Specialty Start Date End Date Sarkis Carter MD PCP - General Internal Medicine 11/19/1502/28 [facility], Pcp PCP - General Internal Medicine 03/01/16 07/28/16 Sarkis Carter MD PCP - General Internal Medicine 07/29/16 documented as of this encounter
--- OUTSIDE RECORDS SUMMARY | 2024-06-19 17:38 | XMS_ITS | Encounter Summary ---
Author Organization [facility] Address [address] [place] [address] Care Team Providers Care Utility Sales Representative Name Role Phone Sarkis Carter MD Primary Care Provider Un available Community, Pcp Primary Care Provider Unavailabl e Sarkis Carter MD Primary Care Provider Un available Encounter Details Date Type Department Care Team Description 02/26/2016 [facility] Medical Records [address] [place] [address] Favian Gao MD Social History Tobacco Use Types Packs/Day Years Used Date Smoking Tobacco: Never Alcohol Use Standard Drinks/Week Comments No 0 (1 standard drink = 0.6 oz pur e alcohol) Sex Assigned at Date Recorded Not on file documented as of this encounter Plan of Treatment Not on file documented as of this encounter Visit Diagnoses Not on filedocumented in this encounter Care Teams Utility Sales Representative Relationship Specialty Start Date End Date Sarkis Carter MD PCP - General Internal Medicine 11/19/1502/28 [facility], Pcp PCP - General Internal Medicine 03/01/16 07/28/16 Sarkis Carter MD PCP - General Internal Medicine 07/29/16 documented as of this encounter
== END 2024-06-19 15:48 | disposition home or self-care (01) ==
LOC: HO.RHE 15:12
PROVIDERS: PCP Physician Assistant; Visit Provider Student in an Organized Health Care Education/Training Program
DX: M79.7 Fibromyalgia (principal)
CPT/HCPCS: 99214

== ENCOUNTER → 2024-06-19 15:11 | Outpatient (BNVA) | payer MEDICAID, SELFPAY | PROVIDERS: PCP Physician Assistant; Visit Provider Student in an Organized Health Care Education/Training Program | DX: M79.7 Fibromyalgia (principal); M47.812 Spondylosis without myelopathy or radiculopathy, cervical region; M47.816 Spondylosis without myelopathy or radiculopathy, lumbar region; M06.00 Rheumatoid arthritis without rheumatoid factor, unspecified site; E78.5 Hyperlipidemia, unspecified; I10 Essential (primary) hypertension; L40.4 Guttate psoriasis | CPT/HCPCS: 99212 ==

== ENCOUNTER 2024-07-10 13:32 | Outpatient (AMB) | payer MEDICAID, SELFPAY ==
--- NOTE | 2024-07-10 13:45 | MHC.OFFVIS ---
Vital Signs 07/10/24 13:46 Height 5 ft 2 in Weight 158 lb BMI 28.9 BP 116/56 L Blood Pressure Location Lt brachial Position Sitting Respiration 16 Pulse 69 Pulse Source Pulse Oximeter Pulse Oximetry (%) 97 Oxygen Delivery Method Room Air Intake Visit Reasons: Spondylosis without myelopathy, cervical region Electrician Supervisor Substation Required: No Allergies tramadol [Ultram] Allergy (Unknown, Verified 07/10/24 13:47) nausea and vomiting adalimumab [From Humira(CF)] Allergy (Verified 07/10/24 13:47) injection site reaction etanercept [From Enbrel] Allergy (Verified 07/10/24 13:47) Rash CT scan dye Allergy (Intermediate, Uncoded 07/10/24 13:47) trouble breathing From ULTRAM Allergy (Intermediate, Uncoded 07/10/24 13:47) N/V/DIZZINESS Medication List - Last Reconciled 07/10/24 by Dasha Silva, BEVERLEY albuterol sulfate 90 mcg/actuation 2 puffs inhalation Q6H PRN amitriptyline 10 mg PO BEDTIME tddquvdxfr-cpngyyxnfieal-ajhg 50-325-40 mg 1 tab PO Q8H PRN citalopram 20 mg PO DAILY cyclobenzaprine 5 mg PO BEDTIME diclofenac sodium 1% 2 grams topical BID dicyclomine 10 mg PO QID linaclotide (Linzess) 145 mcg PO DAILY loratadine 10 mg PO DAILY PRN lorazepam 1 mg PO BID PRN ondansetron HCl 4 mg PO Q8H PRN pravastatin 40 mg PO DAILY pregabalin 25 mg PO BEDTIME propranolol ER 120 mg PO DAILY rabeprazole 20 mg PO BID simethicone (Gas Relief (simethicone)) 250 mg PO BID PRN valacyclovir 1,000 mg PO BID PRN HPI Comments Details: The patient is a 49-year-old female presenting with neck and back pain. She has a significant history of chronic low back pain dating back over a decade, with pain primarily localized on the left side, radiating down to the lower extremity and causing weakness necessitating the use of a cane. The symptoms have progressively worsened, and previous treatments like physical therapy and injections, dating back years, were not notably effective. Her neck pain exhibits similar characteristics without radiating numbness and tingling, exacerbated by motion. Her current medication regime includes pregabalin, amitriptyline, and cyclobenzaprine, which induces drowsiness. Recent imaging has focused on pelvic x-rays, with outdated imaging for the neck and back. Notably, she has a history of carpal tunnel syndrome and tendinitis with previous surgeries. - Onset: Chronic, longstanding for more than a decade, recently worsening. - Quality: Aching, numbness, tingling, and burning sensation. - Primary Location: Neck and lower back. - Radiation: Radiating to the left side, particularly affecting the left leg. - Exacerbating Factors: Walking, standing for extended periods. - Relieving Factors: Use of canes; braces for neck and back. - Interference: Requires use of a cane due to left-side weakness; insomnia due to pain. - Affect: Pain is severely impacting daily activities and ambulation. - Analgesia: Currently using pregabalin, amitriptyline, cyclobenzaprine which prompt drowsiness without significant pain relief. - Adverse Effects: Notable drowsiness and difficulty waking up. - Activities of Daily Living: Requires assistance and use of supportive devices due to left-sided weakness. - Aberrant Drug Related Behaviors: None reported; adherence to prescribed regimen noted. [facility] Medical History (Updated 07/10/24 @ 14:12 by Mariah Rosales APRN, SENIOR C DEVELOPER) Umbilical hernia Trochanteric bursitis, right hip Guttate psoriasis Trochanteric bursitis, left hip Pes anserinus bursitis of left knee Pes anserine bursitis Degenerative joint disease (DJD) of lumbar spine Cervical spondylosis Thoracic spondylosis HTN (hypertension) IBS (irritable bowel syndrome) Hand numbness Fibromyalgia Seronegative rheumatoid arthritis Surgical History History of carpal tunnel release History of Hx of tubal ligation Hx of appendectomy H/O wisdom tooth extraction Family History Father HTN (hypertension) Prostate cancer Mother Meningitis Diabetes HTN (hypertension) Hyperlipidemia Son Asthma Sister Psoriasis Social History Household Members: None Housing: Apartment Alcohol intake: never Patient Tobacco Use Status: Never used Tobacco Review of Systems Const Details: - Musculoskeletal: Reports neck and lower back pain, left-sided weakness, and numbness. - Neurological: Reports numbness and tingling. - Skin: Reports pain with a burning sensation in the areas mentioned. - General: Reports drowsiness due to medication. Physical Exam Vital Signs: Last Vital Signs Pulse 69 07/10/24 13:46 Resp 16 07/10/24 13:46 BP 116/56 L 07/10/24 13:46 Pulse Ox 97 07/10/24 13:46 Oxygen Delivery Method Room Air 07/10/24 13:46 BMI result Body Mass Index 28.9 General: awake, alert, oriented. Answers questions appropriately. Fully engaged in examination. Skin: warm, dry, intact HEENT: Normocephalic. Hearing intact. Cardiac: External chest normal in appearance. Respiratory: No cough, audible wheezing or stridor. Abdomen: without gross distension. MS: No obvious swelling or deformities. Able to stand on bilateral tiptoes and bilateral heels.? Able to transition from sit to stand unassisted. Ambulates with bilaterally normal heel strike and toe off Tenderness over midline cervical vertebrae and cervical paraspinal muscles. Left greater than right. Significantly tender to palpation over left middle on upper trapezius Tenderness to palpation midline lumbar vertebrae and lumbar paraspinal muscles. SLR negative bilaterally Facet loading positive Nontender over bilateral PSIS Neurological: Oriented to person, place, time and situation. Thought process intact. No gait abnormalities appreciated. Psychiatric: Appropriate mood and affect. Good judgment and insight. Results Reviewed Results Reviewed: 03/28/24 3 views sacroiliac joints Findings No acute fractures. No significant degenerative change. No erosions. IMPRESSION: No acute findings 12/2021 XR/XR cervical spine 2V FINDINGS: Bone alignment is normal. No acute fracture or dislocation. Degenerative spondylosis at C6-C7. Normal disc spaces. Normal prevertebral soft tissues. IMPRESSION: Degenerative spondylosis at C6-C7. 12/2021 XR/XR lumbar spine 2-3V FINDINGS: Bone alignment is normal. No fracture or dislocation is seen. There is mild disc space narrowing at L5-S1. There is lower lumbar spine facet arthritis. IMPRESSION: No fracture or dislocation. Mild degenerative changes. 12/2021 XR/XR thoracic spine 3V FINDINGS: Bone alignment is normal. No fracture or dislocation is seen. There is spondylosis and degenerative disc disease of the lower thoracic spine. Paraspinal soft tissues are normal. IMPRESSION: Degenerative changes. Assessment & Plan Assessment & Plan (1) Cervical spondylosis: Code(s): M47.812 - Spondylosis without myelopathy or radiculopathy, cervical region Category: Medical (2) Lumbar spondylosis: Code(s): M47.816 - Spondylosis without myelopathy or radiculopathy, lumbar region Category: Medical (3) Myofascial muscle pain: Code(s): M79.18 - Myalgia, other site Category: Medical Plan The plan includes acquiring updated x-rays for the neck and back, coordinating physical therapy locally for convenience, and monitoring medication intake to prevent excessive sedation. Post-physical therapy evaluation will determine the utility of pursuing further interventions, such as injections. The patient will adhere to a revised medication schedule to mitigate drowsiness, with close follow-up planned to reassess pain management strategies. I discussed the need for updated imaging of the neck and back to re-evaluate her chronic pain conditions. The risks and benefits of reconnecting with physical therapy were reviewed, including the necessity for insurance and potential relief of symptoms. I advised on appropriate medication scheduling to reduce drowsiness and pointed out the risk of excessive sedation from concurrent medication intake. The patient was oriented on the necessity of space-management between doses and effectiveness assessments post-physical therapy, with a plan to re-evaluate her response and possible future steps, including injections or adjustments in analgesic care. Patient was informed and verbally consented to the use of an ambient scribe for clinic note documentation during this visit. Orders: Orders XR lumbar spine 4V min Today M47.816 - Spondylosis without myelopathy or radiculopathy, lumbar region XR cervical spine w flex/ext Today M47.812 - Spondylosis without myelopathy or radiculopathy, cervical region PT Evaluation and Treatment Today M47.812 - Spondylosis without myelopathy or radiculopathy, cervical region, M47.816 - Spondylosis without myelopathy or radiculopathy, lumbar region, M79.18 - Myalgia, other site Patient Instructions: - Avoid taking Flexeril with other sedating medications at night. - Attend physical therapy sessions scheduled near home. - Report back for follow-up after completing physical therapy. - Seek medical attention if you experience an allergic reaction to any medication. - Expect a call from the physical therapy office for scheduling. - Schedule a follow-up after a month of therapy to reassess. Coding Level of Care Code New Pt Level 4 (65699) Complex EM visit Add On G2211 Diagnoses Cervical spondylosis M47.812 Lumbar spondylosis M47.816 Myofascial muscle pain M79.18
[2024-07-10 13:46] VITALS: BP 116/56; PULSE 69; RESP 16; O2SAT 97; BMI 28.9
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
--- OUTSIDE RECORDS SUMMARY | 2024-07-10 16:06 | XMS_ITS | Data Portability ---
Author Organization [facility] Pain Managem CUAUHTEMOC craig PAIN OFFICE Address [address] [facility] [address] [place] [address] Care Team Providers Care Fraud Prevention Analyst Name Role Phone KIARA POLANCO Primary Care Provider [phone] Assessment Encounter Date Assessment Date Assessment LastModified [...] has been booked. 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 [...] By Organization Details Last Modified Time 05/01/2017 [id number] She was advised against bed rest lasting longer than four days and to continue activities as tolerated. [email or web address] Not available 05/10/2017 12:11:48 05/10/2017 [id number] She was advised against bed rest lasting longer than four days and to continue activities as tolerated. [email or web address] Not available 05/10/2017 14:05:05 05/18/2017 [id number] She was advised against bed rest lasting longer than four days and to continue activities as tolerated. [email or web address] Not available 05/18/2017 14:21:07 06/06/2017 [id number] She was advised against bed rest lasting longer than four days and to continue activities as tolerated. [email or web address] Not available 06/06/2017 11:12:34 08/02/2017 [id number] She was advised against bed rest lasting longer than four days and to continue activities as tolerated. [email or web address] Not available 08/03/2017 15:37:37 Reason for Referral None Reported. Problems Name Problem SNOMED Code Status Onset Date Resolution Date Notes Provider Name and Address Organization Details Recorded Time Lumbosacral radiculitis 88647608 Active 2016 Kentrell taylor MD [address] , [address], [place], [address], [place] [facility] 7 11:28:43 Displacement of lumbar intervertebral disc without myelopathy 94978845 Active 2016 Kentrell taylor MD [address] , [address], [place], [address], [place] [facility] 7 11:28:44 Muscle pain 08056057 Active 2016 Kentrell taylor MD [address] , [address], [place], [address], [place] [facility] 7 11:28:45 Postherpetic neuralgia 2081851 Active 2016 Kentrell taylor MD [address] , [address], [place], [address], [place] [facility] 7 11:28:46 Problem Notes None recorded. Procedures Surgical History Date Name Laterality Status Provider Name and Address Organization Details Recorded Time 08/03/19 18 Trigger Point Injections under ultrasound guidance completed Kentrell Reddy MD [address] [facility] , [address], [place], [address], [place] [facility] 08/03/2017 15:37:49 06/07/19 18 Lumbar Epidural steroid injection under fluoroscopic guidance completed Kentrell Reddy MD [address] [facility] [address], [place], [address], [place] [facility] 06/06/2017 11:16:19 05/19/19 18 Trigger Point Injections under ultrasound guidance completed Kentrell Reddy MD [address] [facility] , [address], [place], [address], [place] [facility] 05/18/2017 14:21:11 05/10/19 18 Trigger Point Injections under ultrasound guidance completed Kentrell Reddy MD [address] [facility] [address], [place], [address], [place] [facility] 05/10/2017 14:04:18 03/28/19 18 Lumbar Epidural steroid injection under fluoroscopic guidance completed Kentrell Reddy MD [address] [facility] [address], [place], [address], [place] [facility] 03/30/2017 [...] Name and Address Organization Details Recorded Time 23934 Ultram medicatio n nausea vomiting Not available Not available Not available 11/03/2016 25075 6 RxNorm Amanda Albertoguerline talbot [place] - [...] Relief (simethicon e) 125 mg chewable tablet PREDATORY HUNTER 1 T PO D PRF GAS active [...] Updated DateTime 8 157.48 cm 29.8 kg/m2 96413.5 6 g 76 /min 98 % 98 % 139 mm[Hg] 86 mm[Hg] Amanda Rivas [facility] 8 13:31:16 Date Recorded Pain severity - 0-10 verbal numeric rating [Score] - Reported Provider Name and Address Organization Details Last Updated DateTime 05/01/2017 10 Not Available [facility] 8 05:02:17 Date Recorded Body height Heart rate Oxygen saturation Oxygen saturation in Arterial blood by Pulse oximetry Systolic blood pressure Diastolic blood pressure Provider Name and Address Organization Details Last Updated DateTime 8 157.48 cm 78 /min 98 % 98 % 137 mm[Hg] 86 mm[Hg] Amanda Jones [place] - [facility] 8 13:09:59 Date Recorded Body height Heart rate Oxygen saturation Oxygen saturation in Arterial blood by Pulse oximetry Systolic blood pressure Diastolic blood pressure Provider Name and Address Organization Details Last Updated DateTime 8 157.48 cm 74 /min 98 % 98 % 134 mm[Hg] 94 mm[Hg] Amanda Jones [place] [facility] 8 13:32:06 Date Recorded Body height Heart rate Oxygen saturation Oxygen saturation in Arterial blood by Pulse oximetry Systolic blood pressure Diastolic blood pressure Provider Name and Address Organization Details Last Updated DateTime 8 157.48 cm 72 /min 99 % 99 % 132 mm[Hg] 72 mm[Hg] Amanda Jones [place] [facility] 8 10:50:15 Social History Question Answer Notes LastModified by Organizat ion Details LastModified Time Tobacco Smoking Status Never Smoker Not Available [facility] 01/03/2020 03:16:10 What Is Your Level Of Alcohol Consumption? None [id number] Information not available 01/03/2020 Are You Currently Employed? No Disability [id number] Information not available 01/03/2020 Which Illicit Or Recreational Drugs Have You Used? NO [id number] Information not available 01/03/2020 Education 12 Information no t available 11/03/2016 Live Alone Or With Others? Alone Information not available 11/03/2016 Marital Status Informatio n not available 11/03/2016 What Was The Date Of Your Most Recent Tobacco Screening? 08/03/2017 [id number] Information not available 01/03/2020 Sex: Unknown Functional [...] SNOMED-CT Code Diagnosis ICD10 Code Diagnosis Note [id number] Kentrell Reddy MD PAIN OFFICE [address] [place] [address] 11/03/2016 11:26:52 11/09/2016 08:25:54 Lumbosacral radiculitis 28701537 M54.17 Displaceme nt of lumbar intervertebral disc without myelopathy 11020300 M51.26 Muscle pain 52483375 M79 .1 Postherpet ic neuralgia 6484768 B02.29 [id number] Kentrell Reddy MD PAIN OFFICE [address] [place] [address] 12/29/2016 11:38:37 01/02/2017 11:24:30 Lumbosacral radiculitis 38049273 M54.17 Displaceme nt of lumbar intervertebral disc without myelopathy 11436236 M51.26 Muscle pain 05382460 M79 .1 Postherpet ic neuralgia 5934881 B02.29 [id number] Kentrell Reddy MD PAIN OFFICE [address] [place] [address] 03/28/2017 13:06:19 03/30/2017 09:14:15 Lumbosacral radiculitis 81909625 M54.17 Displaceme nt of lumbar intervertebral disc without myelopathy 50313736 M51.26 Muscle pain 00160005 M79 .1 Postherpet ic neuralgia 6533472 B02.29 [id number] Kentrell Reddy MD PAIN OFFICE [address] [place] [address] 05/01/2017 13:14:47 05/10/2017 13:04:40 Muscle pain 01025982 M79.1 [id number] Kentrell Reddy MD [facility] PAIN OFFICE [address] [place] [address] 05/10/2017 12:59:42 05/10/2017 14:30:54 Muscle pain 28780781 M79.1 Postherpet ic neuralgia 1693149 B02.29 Lumbosacra l radiculitis 22861954 M54.17 Displaceme nt of lumbar intervertebral disc without myelopathy 02295436 M51.26 [id number] Kentrell Reddy MD PAIN OFFICE [address] [place] [address] 05/18/2017 13:07:34 05/18/2017 14:43:57 Muscle pain 66744477 M79.1 Postherpet ic neuralgia 9062356 B02.29 Lumbosacra l radiculitis 51266709 M54.17 Displaceme nt of lumbar intervertebral disc without myelopathy 21996887 M51.26 [id number] Kentrell Reddy MD PAIN OFFICE [address] [place] [address] 06/06/2017 10:42:25 06/06/2017 11:19:46 Lumbosacral radiculitis 62251642 M54.17 Displaceme nt of lumbar intervertebral disc without myelopathy 25516061 M51.26 Muscle pain 84889459 M79 .1 Postherpet ic neuralgia 4346492 B02.29 16509 Kentrell Reddy MD [facility] PAIN OFFICE [address] [place] [address] 08/02/2017 09:51:10 08/03/2017 15:41:32 Muscle pain 04169376 M79.1 Postherpet ic neuralgia 9771155 B02.29 Lumbosacra l radiculitis 34562445 M54.17 Displaceme nt of lumbar intervertebral disc without myelopathy 93678589 M51.26 Health Concerns Section Related Observation LastModified by Organization Detai ls LastModified Time None Recorded Concern Status LastModified by Organization Details LastModified Time None Recorded Advance Directives Directive None Recorded Payers Encounter Date Sequence Insurance Name Policy Number Policy Jimenes Covered Member ID Jimenes Member ID Guarantor Name 05/01/2017 2 [place] Drema Kishan [id number] Drema Kishan 05/10/2017 2 [place] Drema Kishan [id number] Drema Kishan 05/18/2017 2 [place] Drema Kishan [id number] Drema Kishan 05/18/2017 1 [facility] (MEDICAID REPLACEMENT - HMO) [id number] Drema Kishan [id number] Drema Kishan 06/06/2017 2 [place] Drema Kishan [id number] Drema Kishan 06/06/2017 1 [facility] (MEDICAID REPLACEMENT - HMO) [id number] Drema Kishan [id number] Drema Kishan 08/02/2017 2 [place] Drema Kishan [id number] Drema Kishan 08/02/2017 1 [facility] (MEDICAID REPLACEMENT - HMO) [id number] Drema Kishan [id number] Drema Kishan Notes Date Note Type Note [...] bowel incontinence. Kentrell Reddy MD [address] [employer] , [address], [place], [address], [place] - [facility] 05/11/2017 15:55:31 05/10/2017 text/html She is here for a trial of trigger point injections in her left trapezius muscle under ultrasound guidance. Kentrell Reddy MD [address] , [address], [place], [address], [facility] - Pain Management 05/11/2017 15:07:19 05/18/2017 text/html She is here for a repeat left trapezius muscle trigger point injection under ultrasound guidance. She is unsure of the pain benefit after last TPI. She states she has return of low back pain and feels walking and standing aggravates her pain. Kentrell Reddy MD [address] [facility] , [address], [place], [address], [facility] - Pain Management 05/22/2017 10:59:44 06/06/2017 text/html She is here for a repeat lumbar epidural steroid injection under fluoroscopic guidance. Kentrell Reddy MD [address] [facility] , [address], [place], [address], [facility] - Pain Management 06/26/2017 10:17:32 08/02/2017 text/html She is here for a repeat trigger point injections in her left trapezius muscle under ultrasound guidance. Kentrell Reddy MD [address] [facility] , [address], [place], [address], [facility] - Pain Management 08/08/2017 08:22:48 OBGyn Episode No OBEpisode recorded.
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
== END 2024-07-10 14:11 | disposition home or self-care (01) ==
LOC: HO.PMC 13:33
PROVIDERS: PCP Physician Assistant; Referring Provider Student in an Organized Health Care Education/Training Program; Visit Provider Registered Nurse Emergency
DX: M47.812 Spondylosis without myelopathy or radiculopathy, cervical region (principal); M47.816 Spondylosis without myelopathy or radiculopathy, lumbar region; M79.18 Myalgia, other site
CPT/HCPCS: 99204

== ENCOUNTER → 2024-07-10 13:32 | Outpatient (BNVA) | payer MEDICAID, SELFPAY | PROVIDERS: PCP Physician Assistant; Referring Provider Student in an Organized Health Care Education/Training Program; Visit Provider Registered Nurse Emergency | DX: M47.812 Spondylosis without myelopathy or radiculopathy, cervical region (principal); M47.816 Spondylosis without myelopathy or radiculopathy, lumbar region; M79.18 Myalgia, other site | CPT/HCPCS: 99212 ==

== ENCOUNTER 2024-09-24 15:21 | Outpatient (REF) | payer MEDICAID, SELFPAY ==
[2024-09-24 15:40] LABS: MANUAL DIFF FLAG NO
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
--- OUTSIDE RECORDS SUMMARY | 2024-09-24 15:52 | XMS_ITS | Data Portability ---
Author Organization [facility], PAIN OFFICE Address [address] [facility] [address] [place] [address] Care Team Providers Care Embedded Firmware Developer Name Role Phone KIARA POLANCO Primary Care Provider [phone] Assessment Encounter Date Assessment Date Assessment LastModified [...] appointment has been booked. She needs a commercial relief driver on the day of the procedure. [email or web address] Not available 05/18/2017 14:23:03 06/06/2017 06/06/2017 Bri [...] . She will follow up as needed. [email or web address] Not available 08/03/2017 15:39:25 Plan of Treatment [...] By Organization Details Last Modified Time 05/01/2017 [id number] She was advised against bed rest lasting longer than four days and to continue activities as tolerated. [email or web address] Not available 05/10/2017 12:11:48 05/10/2017 [id number] She was advised against bed rest lasting longer than four days and to continue activities as tolerated. [email or web address] Not available 05/10/2017 14:05:05 05/18/2017 [id number] She was advised against bed rest lasting longer than four days and to continue activities as tolerated. [email or web address] Not available 05/18/2017 14:21:07 06/06/2017 [id number] She was advised against bed rest lasting longer than four days and to continue activities as tolerated. [email or web address] Not available 06/06/2017 11:12:34 08/02/2017 [id number] She was advised against bed rest lasting longer than four days and to continue activities as tolerated. [email or web address] Not available 08/03/2017 15:37:37 Reason for Referral None Reported. Problems Name Problem SNOMED Code Status Onset Date Resolution Date Notes Provider Name and Address Organization Details Recorded Time Lumbosacral radiculitis 57578256 Active 2016 Kentrell taylor MD [address] , [address], [place], [address], [place] [facility] 7 11:28:43 Displacement of lumbar intervertebral disc without myelopathy 36240305 Active 2016 Kentrell taylor MD [address] , [address], [place], [address], [place] [facility] 7 11:28:44 Muscle pain 58587909 Active 2016 Kentrell taylor MD [address] , [address], [place], [address], [place] [facility] 7 11:28:45 Postherpetic neuralgia 4347432 Active 2016 Kentrell taylor MD [address] , [address], [place], [address], [place] [facility] 7 11:28:46 Problem Notes None recorded. Procedures Surgical History Date Name Laterality Status Provider Name and Address Organization Details Recorded Time 08/03/19 18 Trigger Point Injections under ultrasound guidance completed Kentrell Reddy MD [address] [facility] , [address], [place], [address], [place] [facility] 08/03/2017 15:37:49 06/07/19 18 Lumbar Epidural steroid injection under fluoroscopic guidance completed Kentrell Reddy MD [address] [facility] , [address], [place], [address], [place] [facility] 06/06/2017 11:16:19 05/19/19 18 Trigger Point Injections under ultrasound guidance completed Kentrell Reddy MD [address] [facility] , [address], [place], [address], [place] [facility] 05/18/2017 14:21:11 05/10/19 18 Trigger Point Injections under ultrasound guidance completed Kentrell Reddy MD [address] [facility] , [address], [place], [address], [place] [facility] 05/10/2017 14:04:18 03/28/19 18 Lumbar Epidural steroid injection under fluoroscopic guidance completed Kentrell Reddy MD [address] [facility] , [address], [place], [address], [place] [facility] 03/30/2017 [...] Name and Address Organization Details Recorded Time 03672 Ultram medicatio n nausea vomiting Not available Not available Not available 11/03/2016 75806 6 RxNorm Amanda Del AngelANGELES forde [facility] 7 11:30:47 Medications Name [...] Relief (simethicon e) 125 mg chewable tablet ADMISSIONS SPECIALIST 1 T PO D PRF GAS active [...] t Available Vitals Date Recorded Body height Body mass index (BMI) Body weight Heart rate Oxygen saturation Oxygen saturation in Arterial blood by Pulse oximetry Systolic And Diastolic Provider Name and Address Organization Details Last Updated DateTime 8 157.48 cm 29.8 kg/m2 60311.5 6 g 76 /min 98 % 98 % 139/86 mm[Hg] Amanda Jones [facility] 8 13:31:16 Date Recorded Body height Heart rate Oxygen saturation Oxygen saturation in Arterial blood by Pulse oximetry Systolic And Diastolic Provider Name and Address Organization Details Last Updated DateTime 8 157.48 cm 78 /min 98 % 98 % 137/86 mm[Hg] Amanda Jones [place] [facility] 8 13:09:59 Date Recorded Body height Heart rate Oxygen saturation Oxygen saturation in Arterial blood by Pulse oximetry Systolic And Diastolic Provider Name and Address Organization Details Last Updated DateTime 8 157.48 cm 74 /min 98 % 98 % 134/94 mm[Hg] Amanda Jones [place] [facility] 8 13:32:06 Date Recorded Body height Heart rate Oxygen saturation Oxygen saturation in Arterial blood by Pulse oximetry Systolic And Diastolic Provider Name and Address Organization Details Last Updated DateTime 8 157.48 cm 72 /min 99 % 99 % 132/72 mm[Hg] Amanda Jones [place] [facility] 8 10:50:15 Date Recorded Body height Heart rate Oxygen saturation Oxygen saturation in Arterial blood by Pulse oximetry Systolic And Diastolic Provider Name and Address Organization Details Last Updated DateTime 8 157.48 cm 72 /min 98 % 98 % 117/81 mm[Hg] Amanda Jones [place] [facility] 8 10:32:15 Social History Question Answer Notes LastModified by [facility] Details LastModified Time Tobacco Smoking Status Never [facility]oker Not Available [facility] 01/03/2020 03:16:10 Which Illicit Or Recreational Drugs Have You Used? NO [id number] Information not available 01/03/2020 Education 12 [email or web address] Information no t available 11/03/2016 Live Alone Or With Others? Alone [email or web address] Information not available 11/03/2016 Marital Status [email or web address] Informatio n not available 11/03/2016 What Was The Date Of Your Most Recent Tobacco Screening? 08/03/2017 [id number] Information not available 01/03/2020 Sex: Unknown Functional Status Question Answer Note LastModified by [facility] Details LastModified Time What is your level of alcohol consumption? None [id number] Information not available 01/03/2020 Are you currently employed? No Disability [id number] Information not available 01/03/2020 Mental Status None recorded. Family History Relationship Description Onset Age of this Age Resolved Age Notes LastModified by Organization Details LastModified Time Father Malignant neoplastic disease Not available 2016 11:31:40 Father Hypertensive disorder [email or web address] Not available 2016 11:32:21 Sister Disease of liver [email or web address] Not available 2016 11:31:54 Mother Diabetes mellitus Not available 2016 11:32:05 Medical History Condition Response Kidney Stones Y Depression Y Anxiety Disorder Y Arthritis Y Headache Y Fibromyalgia Y Irritable Bowel Syndrome Y Asthma Y GERD/Reflux Y Gynecological HistoryNo gynecological history recorded. Obstetrics History GPAL:G 0 P 0 0 0 0 Past Encounters Encounter ID Performer Location Encounter Start Date Encounter Closed Date Diagnosis/Indication Diagnosis SNOMED-CT Code Diagnosis ICD10 Code Diagnosis Note [id number] Kentrell Reddy MD PAIN OFFICE [address] [place] [address] 11/03/2016 11:26:52 11/09/2016 08:25:54 Lumbosacral radiculitis 64391145 M54.17 Displaceme nt of lumbar intervertebral disc without myelopathy 03582758 M51.26 Muscle pain 63483910 M79 .1 Postherpet ic neuralgia 7294198 B02.29 [id number] Kentrell Reddy MD PAIN OFFICE [address] [place] [address] 12/29/2016 11:38:37 01/02/2017 11:24:30 Lumbosacral radiculitis 70472635 M54.17 Displaceme nt of lumbar intervertebral disc without myelopathy 12866691 M51.26 Muscle pain 77742984 M79 .1 Postherpet ic neuralgia 6860679 B02.29 [id number] Kentrell Reddy MD PAIN OFFICE [address] [place] [place] [address] 03/28/2017 13:06:19 03/30/2017 09:14:15 Lumbosacral radiculitis 88124362 M54.17 Displaceme nt of lumbar intervertebral disc without myelopathy 03559564 M51.26 Muscle pain 61647441 M79 .1 Postherpet ic neuralgia 2258964 B02.29 [id number] Kentrell Reddy MD PAIN OFFICE [address] [place] [address] 05/01/2017 13:14:47 05/10/2017 13:04:40 Muscle pain 01306384 M79.1 [id number] Kentrell Reddy MD [facility] PAIN OFFICE [address] [place] [address] 05/10/2017 12:59:42 05/10/2017 14:30:54 Muscle pain 34011930 M79.1 Postherpet ic neuralgia 8630152 B02.29 Lumbosacra l radiculitis 22544361 M54.17 Displaceme nt of lumbar intervertebral disc without myelopathy 50042632 M51.26 [id number] Kentrell Reddy MD PAIN OFFICE [address] [facility] [place] [address] 05/18/2017 13:07:34 05/18/2017 14:43:57 Muscle pain 73880534 M79.1 Postherpet ic neuralgia 9241503 B02.29 Lumbosacra l radiculitis 57845360 M54.17 Displaceme nt of lumbar intervertebral disc without myelopathy 04872565 M51.26 [id number] Kentrell Reddy MD PAIN OFFICE [address] [facility] [place] [address] 06/06/2017 10:42:25 06/06/2017 11:19:46 Lumbosacral radiculitis 30262530 M54.17 Displaceme nt of lumbar intervertebral disc without myelopathy 20011224 M51.26 Muscle pain 84261090 M79 .1 Postherpet ic neuralgia 5672710 B02.29 [id number] Kentrell Reddy MD PAIN OFFICE [address] [facility] [place] [address] 08/02/2017 09:51:10 08/03/2017 15:41:32 Muscle pain 53166875 M79.1 Postherpet ic neuralgia 3686016 B02.29 Lumbosacra l radiculitis 20102168 M54.17 Displaceme nt of lumbar intervertebral disc without myelopathy 00778528 M51.26 Health Concerns Section Related Observation LastModified by Organization Detai ls LastModified Time None Recorded Concern Status LastModified by Organization Details LastModified Time None Recorded Advance Directives Directive None Recorded Payers Insurance Date Sequence Insurance Name Policy Number Policy Jimenes Covered Member ID Jimenes Member ID Guarantor Name 07/30/2017 2 [place] [facility] Bri Hloley [id number] Bri Holley 07/30/2017 1 [facility] (MEDICAID REPLACEMENT - HMO) [id number] Bri Holley [id number] Bri Holley Notes Date Note Type Note Provider Name [...] or bowel incontinence. Kentrell Reddy MD [address] [facility] , [address] [address], [place], [address], [place] [facility] 05/11/2017 15:55:31 05/10/2017 text/html She is here for a trial of trigger point injections in her left trapezius muscle under ultrasound guidance. Kentrell Reddy MD [address] [facility] , [address] [facility], [place], [address], [place] [facility] 05/11/2017 15:07:19 05/18/2017 text/html She is here for a repeat left trapezius muscle trigger point injection under ultrasound guidance. She is unsure of the pain benefit after last TPI. She states she has return of low back pain and feels walking and standing aggravates her pain. Kentrell Reddy MD [address] [facility] , [address] [address], [place], [address], [place] [facility] 05/22/2017 10:59:44 06/06/2017 text/html She is here for a repeat lumbar epidural steroid injection under fluoroscopic guidance. Kentrell Reddy MD [address] [facility] , [address] [place] [address], [place], [address], [place] [facility] 06/26/2017 10:17:32 08/02/2017 text/html She is here for a repeat trigger point injections in her left trapezius muscle under ultrasound guidance. Kentrell Reddy MD [address] , [address] [place], [address], [place] [facility] 08/08/2017 08:22:48 OBGyn Episode No OBEpisode recorded.
--- OUTSIDE RECORDS SUMMARY | 2024-09-24 15:52 | XMS_ITS | Encounter Summary ---
Author Organization [facility] Address [address] [place] [address] Care Team Providers Care Leadite Worker Name Role Phone Jordon Leavitt MD Primary Care Provider Unava ilable [facility], Pcp Primary Care Provider Gricel e Sarkis Carter MD Primary Care Provider Un available [facility], Pcp Primary Care Provider Gricel e Sarkis Carter MD Primary Care Provider Un available Shane Smith MD Primary Care Provider Unavailabl e Encounter Details Date Type Department Care Team Description 05/22/2015 Delicatessen Manager Report Medical Records [address] [place] [address] Favian Alcantar MD Social History Tobacco Use Types Packs/Day Years Used Date Smoking Tobacco: Never Assessed Sex Assigned at Date Recorded Not on file documented as of this encounter Plan of Treatment Not on file documented as of this encounter Visit Diagnoses Not on filedocumented in this encounter Care Teams Leadite Worker Relationship Specialty Start Date End Date Jordon Leavitt MD PCP - General Internal Medicine 08/03/15 08/10/15 Community, Pcp PCP - General Internal Medicine 08/11/15 11/18/15 Sarkis Carter MD PCP - General Internal Medicine 11/19/1502/28 Community, Pcp PCP - General Internal Medicine 03/01/16 07/28/16 Sarkis Carter MD PCP - General Internal Medicine 07/29/16 Shane Smith MD PCP - General 05/12/14 08/02/15 documented as of this encounter
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
[2024-09-24 16:11] LABS: Hematocrit 41.1 % (37.0-47.0); Hemoglobin 13.8 g/dl (12.0-16.0); Imm Gran Abs Auto 0.02 X10*3/uL (0.00-0.03); Imm Gran Pct Auto 0.3 % (0.0-0.4); Lymphocytes Absolute Auto 1.8 X10*3/uL (1.2-4.9); Mean Corpuscular HGB Conc 33.6 g/dl (31.0-35.0); Mean Corpuscular Hemoglobin 31.4 pg (27.0-33.0); Mean Corpuscular Volume 93.6 fL (80.0-98.0); NRBC Abs Auto 0.000 X10*3/uL (0.0-0.012); NRBC Pct Auto 0.0 /100WBC (0.0-0.2); Platelet Count 227 X10*3/uL (160-400); Red Blood Count 4.39 X10*6/uL (4.20-5.50); White Blood Count 7.1 X10*3/uL (4.8-10.8)
[2024-09-24 16:30] LABS: Alanine Aminotransferase 14 U/L (0-31); Albumin Level 4.5 g/dL (3.5-5.0); Alkaline Phosphatase 62 U/L (39-117); Anion Gap 13 (12-20); Aspartate Amino Transferase 19 U/L (5-31); Blood Urea Nitrogen 10 mg/dL (9-16); Calcium 9.8 mg/dL (8.4-10.2); Carbon Dioxide 23 mmol/L (22-29); Chloride 106 mmol/L (96-108); Estimated Glomerular Filt Rate > 60; Potassium 3.8 mmol/L (3.3-5.1); Sodium 138 mmol/L (135-145); Total Protein 7.8 g/dL (6.5-8.0)
== END 2024-09-24 15:22 | disposition home or self-care (01) ==
LOC: HO.LAB 15:21
PROVIDERS: Visit Provider Student in an Organized Health Care Education/Training Program
DX: M79.7 Fibromyalgia (principal)
CPT/HCPCS: 36415; 80053; 85025; 85652; 86140

== ENCOUNTER 2024-09-26 15:19 | Outpatient (AMB) | payer MEDICAID, SELFPAY ==
[2024-09-26 15:22] VITALS: BP 114/68; PULSE 64; O2SAT 97; BMI 29.0
--- NOTE | 2024-09-26 15:22 | A.OFFVIS_ITS ---
Vital Signs 09/26/24 15:22 Height 5 ft 2 in Weight 158 lb 11.725 oz BMI 29.0 BP 114/68 Blood Pressure Location Lt brachial Position Sitting Pulse 64 Pulse Source Pulse Oximeter Pulse Oximetry (%) 97 Oxygen Delivery Method Room Air Intake Visit Reasons: follow up Intake Note: Patient presents for follow up on fibromyalgia. Patient fell on September 20, and hurt her back, she still has pain in the right side of her back Allergies tramadol (Ultram) Allergy (Unknown, Verified 09/26/24 15:27) nausea and vomiting adalimumab (From Humira(CF)) Allergy (Verified 09/26/24 15:27) injection site reaction etanercept (From Enbrel) Allergy (Verified 09/26/24 15:27) Rash CT scan dye Allergy (Intermediate, Uncoded 09/26/24 15:27) trouble breathing From ULTRAM Allergy (Intermediate, Uncoded 09/26/24 15:27) N/V/DIZZINESS Medication List - Last Reconciled 09/26/24 by Jo Almeida MD albuterol sulfate 90 mcg/actuation 2 puffs inhalation Q6H PRN amitriptyline 10 mg PO BEDTIME uztwefgkxw-rjmfkdrydmfjz-zwvr 50-325-40 mg 1 tab PO Q8H PRN citalopram 20 mg PO DAILY cyclobenzaprine 5 mg PO BEDTIME diclofenac sodium 1% 2 grams topical BID dicyclomine 10 mg PO QID linaclotide (Linzess) 145 mcg PO DAILY loratadine 10 mg PO DAILY PRN lorazepam 1 mg PO BID PRN ondansetron HCl 4 mg PO Q8H PRN pravastatin 40 mg PO DAILY pregabalin 25 mg PO BEDTIME propranolol ER 120 mg PO DAILY rabeprazole 20 mg PO BID simethicone (Gas Relief (simethicone)) 250 mg PO BID PRN valacyclovir 1,000 mg PO BID PRN HPI Comments Details: Patient is a 49-year-old female with depression, asthma, hyperlipidemia, 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, C- spine and T-spine), and fibromyalgia here today for follow up Interval History: Patient was last seen 06/19/24 - No response to steroids - fibromyalgia treatment regimen started: pregabalin, amitriptyline, and cyclobenazaprine Today, - Good helped with the pain - Amitriptyline and cyclobenzaprine made her sleepy - Fell on Monday, now having back pain Rheumatologic History: Current Rheumatology Medication(s): Pregabalin 25mg at night Amitriptyline 10 mg at night Cyclobenzaprine 5 mg at night [facility] Medical History (Updated 09/26/24 @ 15:51 by Jo Almeida MD) Umbilical hernia Trochanteric bursitis, right hip Guttate psoriasis Trochanteric bursitis, left hip Pes anserinus bursitis of left knee Pes anserine bursitis Degenerative joint disease (DJD) of lumbar spine Cervical spondylosis Thoracic spondylosis HTN (hypertension) IBS (irritable bowel syndrome) Hand numbness Fibromyalgia Surgical History History of carpal tunnel release History of Hx of tubal ligation Hx of appendectomy H/O wisdom tooth extraction Family History Father HTN (hypertension) Prostate cancer Mother Meningitis Diabetes HTN (hypertension) Hyperlipidemia Son Asthma Sister Psoriasis Social History Household Members: None Housing: Apartment Alcohol intake: never Patient Tobacco Use Status: Never used Tobacco Review of Systems Const Details: Review of Systems Constitutional: Denies fever, chills, weight loss ENT: Denies vision changes, eye pain or eye redness, dental caries, dry mouth GI: Denies nausea, vomiting, diarrhea, abdominal pain, change in BM Pulm: Denies SOB, SHAH, hemoptysis, wheezing Cards: Denies chest pain, palpitations Skin: Denies Raynaud's, rash, nail changes, photosensitivity, UPHOLSTERY ESTIMATOR: Denies headaches, weakness, paresthesias, recurrent falls MSK: as per HPI All other systems reviewed and are unremarkable except noted above Physical Exam Vital Signs: Last Vital Signs Pulse 64 09/26/24 15:22 BP 114/68 09/26/24 15:22 Pulse Ox 97 09/26/24 15:22 Oxygen Delivery Method Room Air 09/26/24 15:22 BMI result Body Mass Index 29.0 Vital signs reviewed Physical Examination CONSTITUITIONAL Patient alert and cooperative. Well appearing and in no apparent painful distress HEENT Conjunctiva and sclera clear. ?Pupils equal round and reactive to light. ?No lymphadenopathy. ? CHEST/RESPIRATORY SYSTEM Normal respiratory effort and able to speak in complete sentences. ?Clear to auscultation bilaterally. ?No crackles, rales, rhonchi, wheezes heard. CARDIAC SYSTEM Regular rate and rhythm. ?S1 and S2 heard no murmurs. ?Radial pulses intact bilaterally MSK Hands: ?Good moving picture operator strength bilaterally. No deformities noted. ?No synovitis noted to the MCPs, PIPs or DIPs. ?No tenderness to palpation of these joints. Wrists: ?Full range of motion at the wrists without pain. ?No tenderness to palpation or synovitis noted to the wrists. Positive Jon's test bilaterally Elbows: Full range of motion without pain. No tenderness, weakness, swelling, increased warmth or erythema. Shoulders: Full range of motion without pain. No tenderness, weakness, swelling, increased warmth or erythema. Hip bursa: Bilateral tenderness to palpation Knees: ?Full range of motion. ?No tenderness, swelling, increased warmth or erythema.?No effusion or crepitations Ankles: Full range of motion. ?No tenderness, swelling, increased warmth or erythema.? Feet: ?Negative squeeze test. ?No tenderness to palpation or swelling of the MTPs. Tender points:?Tenderness to palpation of the bilateral trapezius, supraspinatus, pes anserine, lumbosacral, lateral malleoli SKIN Skin intact without rashes. Results Reviewed Results Reviewed: Laboratory Tests 03/26/24 06/13/24 14:28 14:05 WBC 7.3 RBC 3.96 L Hgb 12.7 Hct 37.7 Plt Count 220 ESR 23 H Sodium 143 Potassium 4.3 Chloride 107 Carbon Dioxide 29 BUN 13 Creatinine 0.66 AST 19 ALT 16 Alkaline Phosphatase 66 C-Reactive Protein 0.76 H 0.73 H Immunology labs 11/10/22 01/30/23 14:28 14:29 Rheumatoid Factor < 13.0 Cycl Citrul Peptide IgG <16 HLA-B27 Negative XR SI Joint 03/2024 Findings No acute fractures. No significant degenerative change. No erosions. IMPRESSION: No acute findings XR T Spine 12/2021 FINDINGS: Bone alignment is normal. No fracture or dislocation is seen. There is spondylosis and degenerative disc disease of the lower thoracic spine. Paraspinal soft tissues are normal. IMPRESSION: Degenerative changes. XR L Spine 12/2021 FINDINGS: Bone alignment is normal. No fracture or dislocation is seen. There is mild disc space narrowing at L5-S1. There is lower lumbar spine facet arthritis. IMPRESSION: No fracture or dislocation. Mild degenerative changes. XR C spine 12/2021 FINDINGS: Bone alignment is normal. No acute fracture or dislocation. Degenerative spondylosis at C6-C7. Normal disc spaces. Normal prevertebral soft tissues. IMPRESSION: Degenerative spondylosis at C6-C7. Assessment & Plan Assessment & Plan (1) Fibromyalgia: Code(s): M79.7 - Fibromyalgia Category: Medical Plan: #Fibromyalgia Patient is a 49-year-old female with widespread whole-body pain here today for follow up. Her exam is consistent with fibromyalgia. Amitriptyline & cyclobenzaprine caused excessive somnolence. Had some effect from the Lyrica, we will increase this to 50 mg at night Start low-dose naltrexone Plan - Pregabalin 50mg at night - Stop amitriptyline and cyclobenzaprine - Ordered naltrexone 50 mg 10 pills. Instructions given to patient about how to dissolve the medication and take 4.5 mg dose - Follow up with pain management - RTC 3 months Plan I spent 30 minutes reviewing the record and labs, taking a history, examining the patient, discussing the treatment plan, ordering diagnostic work up and documenting in the medical record Medications: New naltrexone 50 mg PO DAILY 10 tabs 0RF M79.7 - Fibromyalgia Changed From pregabalin 25 mg PO BEDTIME 90 caps 1RF M79.7 - Fibromyalgia To pregabalin 50 mg (2 x 25 mg) PO BEDTIME 180 caps 1RF M79.7 - Fibromyalgia Discontinued amitriptyline Discontinued Reason: Doctor's Order 10 mg PO BEDTIME 90 tabs 1RF M79.7 - Fibromyalgia cyclobenzaprine Discontinued Reason: Doctor's Order 5 mg PO BEDTIME 90 tabs 1RF M79.7 - Fibromyalgia Coding Level of Care Code Est Pt Level 3 (54618) Complex EM visit Add On G2211 Diagnoses Fibromyalgia M79.7
--- OUTSIDE RECORDS SUMMARY | 2024-09-26 15:22 | XMS_ITS | Data Portability ---
Author Organization [facility] PAIN OFFICE Address [address] [facility] [address] [place] [address] Care Team Providers Care Tombstone Polisher Name Role Phone KIARA POLANCO Primary Care Provider Assessment Encounter Date Assessment Date Assessment LastModified [...] appointment has been booked. She needs a tow driver on the day of the procedure. [...] By Organization Details Last Modified Time 05/01/2017 [id number] She was advised against bed rest lasting longer than four days and to continue activities as tolerated. [email or web address] Not available 05/10/2017 12:11:48 05/10/2017 16110 She was advised against bed rest lasting longer than four days and to continue activities as tolerated. [email or web address] Not available 05/10/2017 14:05:05 05/18/2017 97449 She was advised against bed rest lasting longer than four days and to continue activities as tolerated. [email or web address] Not available 05/18/2017 14:21:07 06/06/2017 98010 She was advised against bed rest lasting longer than four days and to continue activities as tolerated. [email or web address] Not available 06/06/2017 11:12:34 08/02/2017 10276 She was advised against bed rest lasting longer than four days and to continue activities as tolerated. [email or web address] Not available 08/03/2017 15:37:37 Reason for Referral None Reported. Problems Name Problem SNOMED Code Status Onset Date Resolution Date Notes Provider Name and Address Organization Details Recorded Time Lumbosacral radiculitis 25776367 Active 2016 Kentrell taylor MD [address] , [address], [place], [address], [place] [facility] 7 11:28:43 Displacement of lumbar intervertebral disc without myelopathy 54697370 Active 2016 Kentrell taylor MD [address] , [address], [place], [address], [place] [facility] 7 11:28:44 Muscle pain 10793242 Active 2016 Kentrell taylor MD [address] , [address], [place], [address], [place] [facility] 7 11:28:45 Postherpetic neuralgia 8356056 Active 2016 Kentrell taylor MD [address] , [address], [place], [address], [place] [facility] 7 11:28:46 Problem Notes None recorded. Procedures Surgical History Date Name Laterality Status Provider Name and Address Organization Details Recorded Time 08/03/19 18 Trigger Point Injections under ultrasound guidance completed Kentrell Reddy MD [address] [facility] , [address], [place], [address], [place] [facility] 08/03/2017 15:37:49 06/07/19 18 Lumbar Epidural steroid injection under fluoroscopic guidance completed Kentrell Reddy MD [address] [facility] [address], [place], [address], [place] [facility] 06/06/2017 11:16:19 05/19/19 18 Trigger Point Injections under ultrasound guidance completed Kentrell Reddy MD [address] [facility] , [address], [place], [address], [place] [facility] 05/18/2017 14:21:11 05/10/19 18 Trigger Point Injections under ultrasound guidance completed Kentrell Reddy MD [address] [facility] , [address], [place], [address], [place] [facility] 05/10/2017 14:04:18 03/28/19 18 Lumbar Epidural steroid injection under fluoroscopic guidance completed Kentrell Reddy MD [address] [facility] , [address], [place], [address], [place] [facility] 03/30/2017 [...] Name and Address Organization Details Recorded Time 64306 Ultram medicatio n nausea vomiting Not available Not available Not available 11/03/2016 94650 6 RxNorm Amanda Del AngelANGELES forde [facility] [...] Relief (simethicon e) 125 mg chewable tablet AGER OPERATOR 1 T PO D PRF GAS active [...] Updated DateTime 8 157.48 cm 29.8 kg/m2 67034.5 6 g 76 /min 98 % 98 % 139/86 mm[Hg] Amanda Jones [facility] 8 13:31:16 Date Recorded [...] Social History Question Answer Notes LastModified by [employer] Details LastModified Time Tobacco Smoking Status Never Smoker Not Available [facility] 01/03/2020 03:16:10 Which Illicit Or Recreational Drugs Have You Used? NO [id number] Information not available 01/03/2020 Education 12 [email or web address] Information no t available 11/03/2016 Live Alone Or With Others? Alone [email or web address] Information not available 11/03/2016 Marital Status [email or web address] Informatio n not available 11/03/2016 What Was The Date Of Your Most Recent Tobacco Screening? 08/03/2017 [id number] Information not available 01/03/2020 Sex: Unknown Functional Status Question Answer Note LastModified by [employer] Details LastModified Time What is your level of alcohol consumption? None [id number] Information not available 01/03/2020 Are you currently employed? No Disability [id number] Information not available 01/03/2020 Mental Status None [...] SNOMED-CT Code Diagnosis ICD10 Code Diagnosis Note [id number] Kentrell Reddy MD PAIN OFFICE [address] [place] [address] 11/03/2016 11:26:52 11/09/2016 08:25:54 Lumbosacral radiculitis 68025421 M54.17 Displaceme nt of lumbar intervertebral disc without myelopathy 41521910 M51.26 Muscle pain 76281252 M79 .1 Postherpet ic neuralgia 3194307 B02.29 66309 Kentrell Reddy MD PAIN OFFICE [address] [place] [address] 12/29/2016 11:38:37 01/02/2017 11:24:30 Lumbosacral radiculitis 34073083 M54.17 Displaceme nt of lumbar intervertebral disc without myelopathy 71748421 M51.26 Muscle pain 32844382 M79 .1 Postherpet ic neuralgia 7454567 B02.29 01045 Kentrell Reddy MD PAIN OFFICE [address] [place] [address] 03/28/2017 13:06:19 03/30/2017 09:14:15 Lumbosacral radiculitis 31187839 M54.17 Displaceme nt of lumbar intervertebral disc without myelopathy 21242640 M51.26 Muscle pain 69476358 M79 .1 Postherpet ic neuralgia 9324259 B02.29 18077 Kentrell Reddy MD PAIN OFFICE [address] [place] [address] 05/01/2017 13:14:47 05/10/2017 13:04:40 Muscle pain 19419668 M79.1 82523 Kentrell Reddy MD [facility] PA[facility] [email or web address] [place] [address] 05/10/2017 12:59:42 05/10/2017 14:30:54 Muscle pain 74179083 M79.1 Postherpet ic neuralgia 2603223 B02.29 Lumbosacra l radiculitis 29810341 M54.17 Displaceme nt of lumbar intervertebral disc without myelopathy 68412204 M51.26 16039 Kentrell Reddy MD PAIN OFFICE [email or web address] [facility] [place] [address] 05/18/2017 13:07:34 05/18/2017 14:43:57 Muscle pain 83718497 M79.1 Postherpet ic neuralgia 3321995 B02.29 Lumbosacra l radiculitis 43925069 M54.17 Displaceme nt of lumbar intervertebral disc without myelopathy 68440369 M51.26 19647 Kentrell Reddy MD PAIN OFFICE [email or web address] [facility] [place] [address] 06/06/2017 10:42:25 06/06/2017 11:19:46 Lumbosacral radiculitis 60862398 M54.17 Displaceme nt of lumbar intervertebral disc without myelopathy 20011224 M51.26 Muscle pain 75888374 M79 .1 Postherpet ic neuralgia 7497871 B02.29 97589 Kentrell Reddy MD PAIN OFFICE [email or web address] [facility] [place] [address] 08/02/2017 09:51:10 08/03/2017 15:41:32 Muscle pain 48805804 M79.1 Postherpet ic neuralgia 0812271 B02.29 Lumbosacra l radiculitis 93339001 M54.17 Displaceme nt of lumbar intervertebral disc without myelopathy 49865317 M51.26 Health Concerns Section Related Observation LastModified by Organization Detai ls LastModified Time None Recorded Concern Status LastModified by Organization Details LastModified Time None Recorded Advance Directives Directive None Recorded Payers Insurance Date Sequence Insurance Name Policy Number Policy Jimenes Covered Member ID Jimenes Member ID Guarantor Name 07/30/2017 2 MEDICAID-[place]: [facility] Bri Holley [id number] Bri Holley 07/30/2017 1 [employer] (MEDICAID REPLACEMENT - HMO) [id number] Bri Holley [id number] Bri Holley Notes Date Note Type Note [...] or bowel incontinence. Kentrell Reddy MD [address] [facility] , [address] [address], [place], [address], [place] [facility] 05/11/2017 15:55:31 05/10/2017 text/html She is here for a trial of trigger point injections in her left trapezius muscle under ultrasound guidance. Kentrell Reddy MD [address] [facility] , [address] [facility], [place], [address], [place] [facility] 05/11/2017 15:07:19 05/18/2017 text/html She is here for a repeat left trapezius muscle trigger point injection under ultrasound guidance. She is unsure of the pain benefit after last TPI. She states she has return of low back pain and feels walking and standing aggravates her pain. Kentrell Reddy MD [address] [facility] , [address] [address], [place], [address], [place] [facility] 05/22/2017 10:59:44 06/06/2017 text/html She is here for a repeat lumbar epidural steroid injection under fluoroscopic guidance. Kentrell Reddy MD [address] [facility] , [address] [address], [place], [address], [place] [facility] 06/26/2017 10:17:32 08/02/2017 text/html She is here for a repeat trigger point injections in her left trapezius muscle under ultrasound guidance. Kentrell Reddy MD [address] , [address] [place], [address], [place] [facility] 08/08/2017 08:22:48 OBGyn Episode No OBEpisode recorded.
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
== END 2024-09-26 15:53 | disposition home or self-care (01) ==
LOC: HO.RHE 15:20
PROVIDERS: PCP Physician Assistant; Visit Provider Student in an Organized Health Care Education/Training Program
DX: M79.7 Fibromyalgia (principal)
CPT/HCPCS: 99213

== ENCOUNTER → 2024-09-26 15:19 | Outpatient (BNVA) | payer MEDICAID, SELFPAY | PROVIDERS: PCP Physician Assistant; Visit Provider Student in an Organized Health Care Education/Training Program | DX: M79.7 Fibromyalgia (principal); M47.812 Spondylosis without myelopathy or radiculopathy, cervical region; M47.816 Spondylosis without myelopathy or radiculopathy, lumbar region | CPT/HCPCS: 99212 ==

== ENCOUNTER 2024-12-10 14:02 | Outpatient (REF) | payer MEDICAID, SELFPAY ==
--- NOTE | ~2024-12-10 | XR_ITS ---
Examination: 5 view lumbar spine x-ray TECHNIQUE: AP, lateral, lateral spot, and bilateral oblique view, lumbar spine INDICATION: M47.816 - Spondylosis without myelopathy or radiculopathy, lumbar region Prior: 01/04/2022 FINDINGS: Numerous metallic coils over the midline of the lower abdomen is consistent with mesh related to hernia repair. There are 5 nonrib-bearing lumbar segments. There is a transitional L5 vertebral body that pseudoarticulating with the sacrum on the left. Vertebral body height and alignment is preserved. Disc spaces are preserved Minute endplate osteophytes are present at L2, L3, L4, and L5. Oblique views demonstrate no pars intra-articular is defects or facet arthropathy. XR/XR lumbar spine 4V min Impression: Stable minimal degenerative changes. Electronically signed by: Devin Hayes MD 12/10/2024 04:02 PM EDT RP
--- NOTE | ~2024-12-10 | XR_ITS ---
EXAMINATION: XR CERVICAL SPINE CLINICAL INFORMATION: M47.812 - Spondylosis without myelopathy or radiculopathy, cervical region COMPARISON: 01/04/2022 TECHNIQUE: 5 views of the cervical spine, inclusive of flexion and extension views, were obtained. FINDINGS: C6-7 demonstrates mild disc space narrowing with osteophyte similar to the prior. There is limited range of motion with extension. With flexion and extension, there is no sign of instability. Soft tissues are unremarkable. XR/XR cervical spine w flex/ext IMPRESSION: C6-7 demonstrates stable mild degenerative disc disease. There is no sign of instability during flexion and extension. Electronically signed by: Devin Hayes MD 12/10/2024 03:58 PM EDT
--- OUTSIDE RECORDS SUMMARY | 2024-12-10 17:19 | XMS_ITS | Encounter Summary ---
Author Organization [facility] Address [address] [place] [address] Care Team Providers Care Calender Worker Helper Name Role Phone Community, Pcp Primary Care Provider Sarkis Andrade MD Primary Care Provider Un available Count Includes [facility], Pcp Primary Care Provider Sarkis Andrade MD Primary Care Provider Un available Encounter Details Date Type Department Care Team Description 11/16/2015 Photogrammetrist Report Medical Records [address] [place] [id number] Natasha Griffith MD Social History Tobacco Use Types Packs/Day Years Used Date Smoking Tobacco: Never Assessed Sex Assigned at Date Recorded Not on file documented as of this encounter Plan of Treatment Not on file documented as of this encounter Visit Diagnoses Not on filedocumented in this encounter Care Teams Calender Worker Helper Relationship Specialty Start Date End Date Community, Pcp PCP - General Internal Medicine 08/11/15 11/18/15 Sarkis Carter MD PCP - General Internal Medicine 11/19/1502/28 Community, Pcp PCP - General Internal Medicine 03/01/16 07/28/16 Sarkis Carter MD PCP - General Internal Medicine 07/29/16 documented as of this encounter
--- OUTSIDE RECORDS SUMMARY | 2024-12-10 17:19 | XMS_ITS | Encounter Summary ---
Author Organization [facility] Address [address] [place] [address] Care Team Providers Care Dry Heat Cabinet Attendant Name Role Phone Sarkis Carter MD Primary Care Provider Un available Community, Pcp Primary Care [facility] Sarkis Carter MD Primary Care Provider Un available Encounter Details Date Type Department Care Team Description 12/14/2015 Revenue Coordinator Report Medical Records [address] [place] [id number] Favian Alcantar MD Social History Tobacco Use [...] on filedocumented in this encounter Care Teams Dry Heat Cabinet Attendant Relationship Specialty Start Date End Date Sarkis Carter MD PCP - General Internal Medicine 11/19/1502/28 [facility], Pcp PCP - General Internal Medicine 03/01/16 07/28/16 Sarkis Carter MD PCP - General Internal Medicine 07/29/16 documented as of this encounter
--- OUTSIDE RECORDS SUMMARY | 2024-12-10 17:19 | XMS_ITS | Encounter Summary ---
Author Organization [facility] Address [address] [place] [address] Care Team Providers Care Senior Test Analyst Name Role Phone Sarkis Carter MD Primary Care Provider Un available Community, Pcp Primary Care Provider Unavailabl e Sarkis Carter MD Primary Care Provider Un available Encounter Details Date Type Department Care Team Description 02/26/2016 [facility] Medical Records [address] [place] [address] Favian Gao MD Social History Tobacco Use [...] on filedocumented in this encounter Care Teams Senior Test Analyst Relationship Specialty Start Date End Date Sarkis Carter MD PCP - General Internal Medicine 11/19/1502/28 [facility], Pcp PCP - General Internal Medicine 03/01/16 07/28/16 Sarkis Carter MD PCP - General Internal Medicine 07/29/16 documented as of this encounter
--- OUTSIDE RECORDS SUMMARY | 2024-12-10 17:19 | XMS_ITS | Encounter Summary ---
Author Organization [facility] Address [address] [place] [address] Care Team Providers Care Hat Lacer Name Role Phone Sarkis Carter MD Primary Care Provider Un available Community, Pcp [facility] MD Primary Care Provider Un available Encounter Details Date Type Department Care Team Description 11/24/2015 Release of Information Medical Records [address] [place] [id number] Abstract, Provider Social History Tobacco Use Types [...] on filedocumented in this encounter Care Teams Hat Lacer Relationship Specialty Start Date End Date Sarkis Carter MD PCP - General Internal Medicine 11/19/1502/28 [facility], Pcp PCP - General Internal Medicine 03/01/16 07/28/16 Sarkis Carter MD PCP - General Internal Medicine 07/29/16 documented as of this encounter
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
--- OUTSIDE RECORDS SUMMARY | 2024-12-10 17:19 | XMS_ITS | Encounter Summary ---
Author Organization [facility] Address [address] [place] [address] Care Team Providers Care Sheet Sewer Name Role Phone Sarkis Carter MD Primary Care Provider Un available Community, Pcp Primary Care Provider [facility] Sarkis Carter MD Primary Care Provider Un available Encounter Details Date Type Department Care Team Description 12/22/2015 [facility] Medical Records [address] [place] [address] Social History Tobacco Use Types Packs/Day Years Used Date Smoking Tobacco: Never Alcohol Use Standard Drinks/Week Comments No 0 (1 standard drink = 0.6 oz pur e alcohol) Sex Assigned at Date Recorded Not on file documented as of this encounter Plan of Treatment Not on file documented as of this encounter Visit Diagnoses Not on filedocumented in this encounter Care Teams Sheet Sewer Relationship Specialty Start Date End Date Sarkis Carter MD PCP - General Internal Medicine 11/19/1502/28 [facility], Pcp PCP - General Internal Medicine 03/01/16 07/28/16 Sarkis Carter MD PCP - General Internal Medicine 07/29/16 documented as of this encounter
--- OUTSIDE RECORDS SUMMARY | 2024-12-10 17:19 | XMS_ITS | Encounter Summary ---
Author Organization [facility] Address [address] [place] [address] Care Team Providers Care Die Maintenance Technician Name Role Phone Sarkis Carter MD Primary Care Provider Un available Community, Pcp Primary Care Provider [facility] Sarkis Carter MD Primary Care Provider Un available Encounter Details Date Type Department Care Team Description 02/24/2016 [facility] Medical Records [address] [place] [phone] Abstract, Provider Social History Tobacco Use Types [...] on filedocumented in this encounter Care Teams Die Maintenance Technician Relationship Specialty Start Date End Date Sarkis Carter MD PCP - General Internal Medicine 11/19/1502/28 [facility], Pcp PCP - General Internal Medicine 03/01/16 07/28/16 Sarkis Carter MD PCP - General Internal Medicine 07/29/16 documented as of this encounter
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
--- OUTSIDE RECORDS SUMMARY | 2024-12-10 17:19 | XMS_ITS | Encounter Summary ---
Author Organization [facility] Address [address] [place] [address] Care Team Providers Care Flap Presser Name Role Phone Sarkis Carter MD Primary Care Provider Un available Community, Pcp [facility] S[facility] MD Primary Care Provider Un available Encounter Details Date Type Department Care Team Description 02/25/2016 Handbag Finisher Report Medical Records [address] [place] [id number] Favian Alcantar MD Social History Tobacco Use [...] on filedocumented in this encounter Care Teams Flap Presser Relationship Specialty Start Date End Date Sarkis Carter MD PCP - General Internal Medicine 11/19/1502/28 [facility], Pcp PCP - General Internal Medicine 03/01/16 07/28/16 Sarkis Carter MD PCP - General Internal Medicine 07/29/16 documented as of this encounter
--- OUTSIDE RECORDS SUMMARY | 2024-12-10 17:20 | XMS_ITS | Clinical Summary ---
Author Organization [facility] Address [address] [place] [address] Care Team Providers Care Automobile Service Station Manager Name Role Phone Unavailable Primary Care Provider Unavailabl e Encounters Date Type Department Care Team Description 10/08/2024 Population Health Risk Score [facility] (C3) Department [address] [facility] [address] [place] [address] Provider, Population Health Generic from Last 3 Months Social History Tobacco Use Types Packs/Day Years Used Date Smoking Tobacco: Never Assessed Comments Unknown Sex and Gender Information Value Date Recorded Sex Assigned at Female 01/17/2022 10:19 AM EDT Legal Sex Female 10:19 AM EDT Gender Identity Not on file Sexual Orientation Not on file Plan of Treatment Health Maintenance Due Date Last Done Comments CT Colonography 1974 Colonoscopy 1974 Colorectal Cancer Screening 1974 Depression Screening 1974 FIT DNA/Cologuard 1974 FIT 1974 FOBT 1974 HIV Screening 1974 Sigmoidoscopy 1974 Disability Screening 1974 Alcohol/Substance Use Screening 1986 Tobacco Screening 1986 Family Planning (PISQ) 1989 Hepatitis C Screening 1992 Hepatitis B Vaccines (1 of 3 - 19+ 3-dose series) 1993 Pneumococcal Vaccine: 50+ Ye ars (1 of 2 - PCV) 1993 Pap Smear 05/30/1995 Cervical Cancer Screening 2004 HPV/Cotest 2004 DTaP/Tdap/Td Vaccines (1 - Tdap) 01/02/2008 01/01/20 08 Mammogram 2014 Zoster Vaccines (1 of 2) 2024 COVID-19 Vaccine (1 - 2023-2 5 season) 2024 Influenza Vaccine (#1) 2024 RSV Patients and Pa tients Aged 60 years or older (1 - 1-dose 75+ series) 2049 HIB Vaccines Aged Out No longer eligi [...] patient's age to complete this topic Meningococcal Vaccine Aged Out No candace ju eligible based on patient's age to complete this topic RSV under 20 months Aged Out No longe r eligible based on patient's age to complete this topic Rotavirus Vaccines Aged Out No longer eligible based on patient's age to complete this topic
== END 2024-12-10 14:03 | disposition home or self-care (01) ==
LOC: HO.XRAY 14:02
PROVIDERS: PCP Physician Assistant; Visit Provider Registered Nurse Emergency
DX: M47.816 Spondylosis without myelopathy or radiculopathy, lumbar region (principal); M47.812 Spondylosis without myelopathy or radiculopathy, cervical region
CPT/HCPCS: 72052; 72110

== ENCOUNTER → 2024-12-10 14:06 | Outpatient (BNV) | payer MEDICAID, SELFPAY | PROVIDERS: PCP Physician Assistant; Visit Provider Radiology Diagnostic Radiology | DX: M47.812 Spondylosis without myelopathy or radiculopathy, cervical region (principal); M47.816 Spondylosis without myelopathy or radiculopathy, lumbar region; M50.323 Other cervical disc degeneration at C6-C7 level | CPT/HCPCS: 72052; 72110 ==

== ENCOUNTER 2024-12-31 14:58 | Outpatient (AMB) | payer MEDICAID, SELFPAY ==
--- NOTE | 2024-12-31 15:14 | MHC.OFFVIS ---
Vital Signs 12/31/24 15:19 Height 5 ft 2 in Weight 159 lb 6.307 oz BMI 29.2 BP 112/70 Blood Pressure Location Lt brachial Position Sitting Pulse 72 Pulse Source Pulse Oximeter Pulse Oximetry (%) 98 Oxygen Delivery Method Room Air Intake Visit Reasons: follow up Intake Note: Patient presents for Fibromyalgia follow up. Allergies tramadol (Ultram) Allergy (Unknown, Verified 12/31/24 15:19) nausea and vomiting adalimumab (From Humira(CF)) Allergy (Verified 12/31/24 15:19) injection site reaction etanercept (From Enbrel) Allergy (Verified 12/31/24 15:19) Rash CT scan dye Allergy (Intermediate, Uncoded 09/26/24 15:27) trouble breathing From ULTRAM Allergy (Intermediate, Uncoded 09/26/24 15:27) N/V/DIZZINESS Medication List - Last Reconciled 12/31/24 by Jo Almeida MD albuterol sulfate 90 mcg/actuation 2 puffs inhalation Q6H PRN vaeopkkhux-pobrxkrdlljus-iyeo 50-325-40 mg 1 tab PO Q8H PRN citalopram 20 mg PO DAILY diclofenac sodium 1% 2 grams topical BID dicyclomine 10 mg PO QID linaclotide (Linzess) 145 mcg PO DAILY loratadine 10 mg PO DAILY PRN lorazepam 1 mg PO BID PRN ondansetron HCl 4 mg PO Q8H PRN pravastatin 40 mg PO DAILY pregabalin 50 mg (2 x 25 mg) PO BEDTIME propranolol ER 120 mg PO DAILY rabeprazole 20 mg PO BID simethicone (Gas Relief (simethicone)) 250 mg PO BID PRN valacyclovir 1,000 mg PO BID PRN HPI Comments Details: Patient is a 49-year-old female with depression, asthma, hyperlipidemia, 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, C-spine and T-spine), and fibromyalgia here today for follow up Interval History: Patient was last seen 09/26/2024 - Good helped with the pain - Amitriptyline and cyclobenzaprine made her sleepy - Fell on Monday, now having back pain - Referred to pain management Today - On pregabalin 50mg nightly - Still with back pain post fall - Went to PT but this was not helpful - Has not had pain management appointment Rheumatologic History: Initially thought to have Seronegative arthritis diagnosed based on elevated inflammatory markers, clinical symptoms and ultrasound of hands showing tenosynovitis in extensor compartments. - Methotrexate. Elevated LFTs - Humira. Rash - Enbrel. Rash, but noted some improvement in her pain - Orencia. improved her pain some but developed PsO - Monitored off DMARDs with no evidence of synovitis Current Rheumatology Medication(s): Pregabalin 50mg at night [facility] Medical History (Updated 09/26/24 @ 15:51 by Jo Almeida MD) Umbilical hernia Trochanteric bursitis, right hip Guttate psoriasis Trochanteric bursitis, left hip Pes anserinus bursitis of left knee Pes anserine bursitis Degenerative joint disease (DJD) of lumbar spine Cervical spondylosis Thoracic spondylosis HTN (hypertension) IBS (irritable bowel syndrome) Hand numbness Fibromyalgia Surgical History History of carpal tunnel release History of Hx of tubal ligation Hx of appendectomy H/O wisdom tooth extraction Family History Father HTN (hypertension) Prostate cancer Mother Meningitis Diabetes HTN (hypertension) Hyperlipidemia Son Asthma Sister Psoriasis Social History Household Members: None Housing: Apartment Alcohol intake: never Patient Tobacco Use Status: Never used Tobacco Physical Exam Exam Exam: Vital signs reviewed Physical Examination CONSTITUITIONAL Patient alert and cooperative. Well appearing and in no apparent painful distress MSK Hands Right Hand: Able to make a fist. No swelling or tenderness to palpation of the MCPs, PIPs or DIPs. Scar noted over later thumb (previous de quervains tendonitis surgery) Left Hand: Able to make a fist. No swelling or tenderness to palpation of the MCPs, PIPs or DIPs. Herbedens nodes noted bilaterally Wrists Right Wrist: Full ROM to flexion and extension. No swelling or TTP Left Wrist: Full ROM to flexion and extension. No swelling or TTP Elbows Right Elbow: Full ROM. No swelling or TTP. No TTP of the medial epicondyle. No TTP of the lateral epicondyle Left Elbow: Full ROM. No swelling or TTP. No TTP of the medial epicondyle. No TTP of the lateral epicondyle Shoulders Right shoulder: No swelling noted. No TTP of the AC joint. No TTP of the subacromial bursa. No TTP of the posterior shoulder Left shoulder: No swelling noted. No TTP of the AC joint. No TTP of the subacromial bursa. No TTP of the posterior shoulder Knees Right knee: Full ROM. No swelling noted. No TTP of the knee joint line. No TTP of pes anserine bursa Left knee: Full ROM. No swelling noted. TTP of the knee joint line. No TTP of pes anserine bursa. Ankles Right ankle: Good ankle dorsiflexion and plantar flexion. No swelling. No TTP of the ankle joint Left ankle: Good ankle dorsiflexion and plantar flexion. No swelling. No TTP of the ankle joint Feet Right foot: Negative squeeze test Left foot: Negative squeeze test Tender points? Tenderness to palpation of the bilateral trapezius, supraspinatus, anterior costochondral junctions, bilateral suboccipital muscle insertions SKIN No rashes Vital Signs: Last Vital Signs Pulse 72 12/31/24 15:19 BP 112/70 12/31/24 15:19 Pulse Ox 98 12/31/24 15:19 Oxygen Delivery Method Room Air 12/31/24 15:19 BMI result Body Mass Index 29.2 Results Reviewed Results Reviewed: XR C spine 11/2024 FINDINGS: C6-7 demonstrates mild disc space narrowing with osteophyte similar to the prior. There is limited range of motion with extension. With flexion and extension, there is no sign of instability. Soft tissues are unremarkable. IMPRESSION: C6-7 demonstrates stable mild degenerative disc disease. There is no sign of instability during flexion and extension. XR L Spine 11/2024 FINDINGS: Numerous metallic coils over the midline of the lower abdomen is consistent with mesh related to hernia repair. There are 5 nonrib-bearing lumbar segments. There is a transitional L5 vertebral body that pseudoarticulating with the sacrum on the left. Vertebral body height and alignment is preserved. Disc spaces are preserved Minute endplate osteophytes are present at L2, L3, L4, and L5. Oblique views demonstrate no pars intra-articular is defects or facet arthropathy. Impression: Stable minimal degenerative changes. Assessment & Plan Assessment & Plan (1) Fibromyalgia: Code(s): M79.7 - Fibromyalgia Category: Medical Plan: #Fibromyalgia Patient is a 49-year-old female with widespread whole-body pain here today for follow up. Her exam is consistent with fibromyalgia. Continue pregabalin Naltrexone made her dizzy Plan - Pregabalin 50mg at night - Stop amitriptyline and cyclobenzaprine - Pain management for degenerative disc disease - RTC 6 months Plan I spent 30 minutes reviewing the record and labs, taking a history, examining the patient, discussing the treatment plan, counselling about OA and fibromyalgia and documenting in the medical record Coding Level of Care Code Est Pt Level 4 (01697) Complex EM visit Add On G2211 Diagnoses Fibromyalgia M79.7
[2024-12-31 15:19] VITALS: BP 112/70; PULSE 72; O2SAT 98; BMI 29.2
--- OUTSIDE RECORDS SUMMARY | 2024-12-31 17:52 | XMS_ITS | Clinical Summary ---
Author Organization [facility] Address [address] [place] [address] Care Team Providers Care Photoengraver Apprentice Name Role Phone Unavailable Primary Care Provider Unavailabl e Encounters Date Type Department Care Team Description 10/08/2024 Population Health Risk Score [facility] (C3) Department [address] [facility] [address] [place] [address] Provider, Population Health Generic from [...]
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
== END 2024-12-31 16:04 | disposition home or self-care (01) ==
LOC: HO.RHES 14:58
PROVIDERS: PCP Physician Assistant; Visit Provider Student in an Organized Health Care Education/Training Program
DX: M79.7 Fibromyalgia (principal)
CPT/HCPCS: 99214

== ENCOUNTER → 2024-12-31 14:58 | Outpatient (BNVA) | payer MEDICAID, SELFPAY | PROVIDERS: PCP Physician Assistant; Visit Provider Student in an Organized Health Care Education/Training Program | DX: M79.7 Fibromyalgia (principal) | CPT/HCPCS: 99212 ==